=== PATIENT | male | born 1950 | race Caucasian/White ===

== ENCOUNTER 2020-06-11 13:18 | Inpatient (IN) ==
[2020-06-11] MEDS ORDERED: SODIUM CHLORIDE 0.9% 1000ML 1,000 ML IV SCH (14:15)
[2020-06-11 14:41] LABS: Basophils # (auto) 0.04 K/uL (0-0.2); Basophils % (auto) 0.4 %; Eosinophils # (auto) 0.14 K/uL (0-0.5); Eosinophils % (auto) 1.5 %; Hematocrit (blood only) 38.3 % (42-52); Hemoglobin 13.4 g/dL (14.0-18.0); Immature Granulocytes # (auto) 0.02 K/uL (0.00-0.02); Immature Granulocytes % (auto) 0.2 %; Lymphocytes % (auto) 14.7 %; Mean Corpuscular Hemoglobin 30.9 pg (25-34); Mean Corpuscular Volume 88.5 fL (80-100); Mean Platelet Volume 11.3 fL (7.4-10.4); Monocytes % (auto) 10.5 %; Neutrophils # (auto) 6.93 K/uL (1.4-6.5); Neutrophils % (auto) 72.7 %; Platelet Count 253 K/uL (130-400); RDW Standard Deviation 48.7 fL (36.4-46.3); Red Blood Count 4.33 M/uL (4.7-6.1); White Blood Count 9.53 K/uL (4.8-10.8)
[2020-06-11 14:45] LABS: Appearance Urine Clear (Clear); Color Urine Orange; Protein Urine Negative (Negative); Specific Gravity Urine 1.021 (1.000-1.030); Sulfosalicylic Acid Urine Negative (Negative)
[2020-06-11 14:47] LABS: Epithelial Cell Urine 0-5 /lpf (0-5)
[2020-06-11 14:48] LABS: Bacteria Urine 1+ (Negative); INR 1.9 (0.9-1.1); Prothrombin Time 19.7 Seconds (9.0-12.0); RBC Urine 0-4 /hpf (0-4); WBC Urine 0-5 /hpf (0-5)
[2020-06-11 14:54] LABS: Est GFR (African American) 94.9; Est GFR (Non-African American) 81.9; Potassium 4.3 mmol/L (3.5-5.1)
--- NOTE | 2020-06-11 14:58 | Gastrointestinal Consultation ---
Date of Consultation June 11, 2020 Assessment & Plan (1) Jaundice: 70 year old male who sought GI care at [facility]SH for generalized abd discomfort, constipation and weight loss who presents to the ED w/ jaundice, Tbili 7, ABD US w/ gallstones/sludge and CBD dilation at 13 mm. Agree w/ CTAP Analgesia PRN Antiemetics PRN NPO after midnight EUS/ERCP tomorrow Will need pre-endoscopy COVID Acute hep panel Will need full liver serology pending imaging Thank you for allowing us to participate in the care of this patient. Please call with any acute changes, questions or concerns. Please see addendum below with additional recommendation from my supervising physician. Supervising Physician Co-Signing Physician Notes I have personally seen and examined the patient with TRISHA Zaman. Her note reflects my exam and findings. I agree with her impression and plan. Presentation most c/w choledocholithiasis. CT will help r/o mass lesion. Antibiotic coverage for biliary source given out patient temp and he is a diabetic. Gabe Torres M.D. History of Present Illness Reason for Consultation: jaundice Requesting Physician: Priscilla Attending Physician: Priscilla History of Present Illness 70 year old male with history of T2DM, Barretts who presents to the ED w/ report of gallstones on imaging, biliary dilation from OSH and jaundice. Pt was seen and evaluated, chart reviewed. Suggests he was undergoing work up for abdominal discomfort and constipation at [facility]. Labs over the weekend noted elevated LFTs and ABD US this AM was concerning of CBD dilation at 13 mm and gallstones. He endorses generalized abdominal discomfort. Fullness. Slight decreased appetite and early satiety. Denies nausea/vomiting. He has lost weight. Change in bowel habits w/ formed stools and straining every 4/5 days. Has not seen any black/bloody stools. He has had intermittent fevers of 101 x 1- 2 weeks. No known COVID-19 exposure. CTAP: ordered ABD US: gallstones and sludge, slight GB wall thickening, CBD 13 mm EGD: OSH years ago, Barret[facility] Colonoscopy: OSH years ago, unremarkable No ETOH No tylenol No NSAIDs Allergies Allergy/AdvReac Type Severity Reaction Status Date / Time No Known Allergies Allergy Unverified 06/11/20 15:08 Home Medications Home Medications Medication Instructions Recorded Confirmed Type aspirin [Aspirin Low Dose] 81 mg PO DAILY 06/11/20 06/11/20 History calcium carbonate [Calcium 600] 0 mg PO DAILY 06/11/20 06/11/20 History cyanocobalamin (vitamin B-12) 0 mcg PO DAILY 06/11/20 06/11/20 History [Vitamin B-12] insulin glargine [Lantus Solostar 50 unit SUBCUT BID 06/11/20 06/11/20 History U-100 Insulin] losartan 50 mg PO QAM 06/11/20 06/11/20 History metformin 1,000 mg PO BID 06/11/20 06/11/20 History pantoprazole 40 mg PO QAM 06/11/20 06/11/20 History polyethylene glycol 3350 [Miralax] 17 g PO DAILY PRN 06/11/20 06/11/20 History simvastatin 40 mg PO HS 06/11/20 06/11/20 History Patient History Social History Smoking Status: Never smoker Preferred Language: [place] Feels Safe at Home: Yes Review of Systems Constitutional: + fever (at home) and + weight loss; no chills and no fatigue Respiratory: no cough and no dyspnea Cardiovascular: no chest pain and no dyspnea Gastrointestinal: + abdominal pain, + early satiety and + change in stools Physical Exam Constitutional: no acute distress Neck: trachea midline Respiratory: normal respiratory effort Cardiovascular: Rate/Rhythm: regular rate Gastrointestinal (Abdomen): Percussion/Palpation: abdomen soft; abdomen nontender, no guarding and abdomen not rigid Skin: + jaundice Results & Data ([facility]) Vital Signs (Past 12 Hours) Vital Signs Temp Pulse Resp BP Pulse Ox 06/11/20 13:19 37.0 C 95 H 18 201/84 H 99 Laboratory Results 06/11/20 06/11/20 06/11/20 Range/Units 14:25 14:25 14:25 WBC (4.8-10.8) K/uL RBC (4.7-6.1) M/uL Hgb (14.0-18.0) g/dL Hct (42-52) % MCV (80-100) fL MCH (25-34) pg MCHC (32-36) g/dL RDW Std Deviation (36.4-46.3) fL RDW Coeff of Christiano (11.5-14.5) % Plt Count (130-400) K/uL MPV (7.4-10.4) fL Immature Gran % (Auto) % Neut % (Auto) % Lymph % (Auto) % [place] % (Auto) % Eos % (Auto) % Baso % (Auto) % Neut # (Auto) (1.4-6.5) K/uL Lymph # (Auto) (1.2-3.4) K/uL [place] # (Auto) (0.11-0.59) K/uL Eos # (Auto) (0-0.5) K/uL Baso # (Auto) (0-0.2) K/uL Immature Gran # (Auto) (0.00-0.02) K/uL PT 19.7 H (9.0-12.0) Seconds INR 1.9 H (0.9-1.1) Sodium 134 L (136-145) mmol/L Potassium 4.3 (3.5-5.1) mmol/L Chloride 97 L (98-107) mmol/L Carbon Dioxide 29 (21-32) mmol/L Anion Gap 8.0 (3-11) BUN 15 (7-18) mg/dl Creatinine 0.95 (0.6-1.4) mg/dl Est Cr Clr Drug Dosing 72.0 ml/min Est GFR ( Amer) 94.9 Est GFR (Non-Af Amer) 81.9 BUN/Creatinine Ratio 16.0 (10-20) Glucose 273 H (70-99) mg/dl Calcium 10.0 (8.5-10.1) mg/dl Total Bilirubin Pending AST Pending ALT Pending Alkaline Phosphatase Pending Total Protein Pending Albumin 3.0 L (3.4-5.0) gm/dl Globulin Pending Albumin/Globulin Ratio Pending Lipase 66 L (73-393) U/L Urine Color [place] Urine Appearance Clear (Clear) Urine pH (4.5-7.5) Ur Specific [place] 1.021 (1.000-1.030) Urine Protein Negative (Negative) Urine Glucose (UA) (Negative) Urine Ketones (Negative) Urine Blood (Negative) Urine Nitrite (Negative) Urine Bilirubin (Negative) Urine Urobilinogen (Negative) Ur Leukocyte Esterase (Negative) Urine RBC 0-4 (0-4) /hpf Urine WBC 0-5 (0-5) /hpf Ur Epithelial Cells 0-5 (0-5) /lpf Urine Bacteria 1+ H (Negative) 06/11/20 Range/Units 14:25 WBC 9.53 (4.8-10.8) K/uL RBC 4.33 L (4.7-6.1) M/uL Hgb 13.4 L (14.0-18.0) g/dL Hct 38.3 L (42-52) % MCV 88.5 (80-100) fL MCH 30.9 (25-34) pg MCHC 35.0 (32-36) g/dL RDW Std Deviation 48.7 H (36.4-46.3) fL RDW Coeff of Christiano 15.0 H (11.5-14.5) % Plt Count 253 (130-400) K/uL MPV 11.3 H (7.4-10.4) fL Immature Gran % (Auto) 0.2 % Neut % (Auto) 72.7 % Lymph % (Auto) 14.7 % [place] % (Auto) 10.5 % Eos % (Auto) 1.5 % Baso % (Auto) 0.4 % Neut # (Auto) 6.93 H (1.4-6.5) K/uL Lymph # (Auto) 1.40 (1.2-3.4) K/uL [place] # (Auto) 1.00 H (0.11-0.59) K/uL Eos # (Auto) 0.14 (0-0.5) K/uL Baso # (Auto) 0.04 (0-0.2) K/uL Immature Gran # (Auto) 0.02 (0.00-0.02) K/uL PT (9.0-12.0) Seconds INR (0.9-1.1) Sodium (136-145) mmol/L Potassium (3.5-5.1) mmol/L Chloride (98-107) mmol/L Carbon Dioxide (21-32) mmol/L Anion Gap (3-11) BUN (7-18) mg/dl Creatinine (0.6-1.4) mg/dl Est Cr Clr Drug Dosing ml/min Est GFR ( Amer) Est GFR (Non-Af Amer) BUN/Creatinine Ratio (10-20) Glucose (70-99) mg/dl Calcium (8.5-10.1) mg/dl Total Bilirubin AST ALT Alkaline Phosphatase Total Protein Albumin (3.4-5.0) gm/dl Globulin Albumin/Globulin Ratio Lipase (73-393) U/L Urine Color Urine Appearance (Clear) Urine pH (4.5-7.5) Ur Specific [place] (1.000-1.030) Urine Protein (Negative) Urine Glucose (UA) (Negative) Urine Ketones (Negative) Urine Blood (Negative) Urine Nitrite (Negative) Urine Bilirubin (Negative) Urine Urobilinogen (Negative) Ur Leukocyte Esterase (Negative) Urine RBC (0-4) /hpf Urine WBC (0-5) /hpf Ur Epithelial Cells (0-5) /lpf Urine Bacteria (Negative)
--- NOTE | 2020-06-11 15:27 | XRay Report ---
XR chest 1V portable HISTORY: 70 years-old Male weight loss patient presents with weight loss. COMPARISON: None TECHNIQUE: Portable AP view of the chest FINDINGS: Cardiomediastinal and hilar silhouettes are within normal limits. No pneumothorax, pleural effusion, airspace consolidation or overt pulmonary edema. Degenerative changes of the shoulders and spine. IMPRESSION: No acute process. ACT 112: Negative or not required by law. The above report was generated using voice recognition software. It may contain grammatical, syntax o r spelling errors. Electronically signed by: Luis Cleveland M.D. 06/11/2020 3:25 PM
[2020-06-11 15:36] LABS: Albumin Globulin Ratio 0.7 (0.9-2); Bilirubin,Total 13.4 mg/dl (0.2-1); Globulin 4.6 gm/dl (2.5-4.0); Total Protein 7.6 gm/dl (6.4-8.2)
[2020-06-11] MEDS ORDERED: ACETAMINOPHEN 325 MG TAB PO PRN (17:14)
[2020-06-11] MEDS ORDERED: MoRPHine SULFATE 2 MG/ML CARP IV PRN (17:14)
[2020-06-11] MEDS ORDERED: IOVERSOL 100ml IV ONE (17:17)
[2020-06-11] MEDS ORDERED: ONDANSETRON INJ 2 MG/ML 2 ML VIAL IV PRN (17:23)
--- NOTE | 2020-06-11 17:43 | CT Scan Report ---
ABDOMEN AND PELVIS CT WITH IV AND ORAL CONTRAST CT DOSE: 424.87 mGy.cm HISTORY: weight loss, jaundice TECHNIQUE: Multiaxial CT images of the abdomen and pelvis were performed following the use of intrave nous and oral contrast. A dose lowering technique was utilized adhering to the principles of ALARA. COMPARISON STUDY: None. FINDINGS: The lung bases are essentially clear. No pneumoperitoneum. No pneumatosis. No suspicious ly tic or blastic osseous lesions. The liver, adrenal glands, and kidneys are unremarkable. There is a l eft circumaortic renal vein. No retroperitoneal or pelvic lymphadenopathy. The bladder is unremarkabl e. The prostate gland is mildly enlarged. A few colonic diverticula. No evidence for diverticulitis. Moderate well-formed stool seen throughout the colon. No bowel wall thickening or obstruction. Normal appendix. The gallbladder is distended and contains multiple gallstones. The common bile duct and ma in pancreatic duct are also dilated. There is moderate intrahepatic bile duct dilatation. No hepatic masses identified. There is an ill-defined 2.8 x 2.2 cm hypodense mass within the pancreatic head/nec k. This is best seen on image 156. This accounts for the bile duct and pancreatic duct dilatation. Th ere is atrophy of the pancreatic tail. This mass abuts but does not significantly encase or narrow th e adjacent portal and superior mesenteric veins. The superior mesenteric artery is also patent. IMPRESSION: 1. A 2.8 x 2.2 cm ill-defined hypodense mass within the pancreatic head/neck resulting in dilatation of the biliary and pancreatic ducts. Findings are consistent with a pancreatic adenocarcinoma until p roven otherwise. 2. This mass abuts but does not significantly narrow the adjacent portal/superior mesenteric veins. 3. Dilated gallbladder also likely secondary to an obstructing pancreatic head mass. There are multip le gallstones present. 4. Moderate well-formed stool within the colon. 5. No bowel wall thickening or obstruction. ACT 112: Negative or not required by law. Electronically signed by: Norman Li M.D. 06/11/2020 5:42 PM
[2020-06-11] MEDS ORDERED: ONDANSETRON INJ 2 MG/ML 2 ML VIAL IV STA (18:23)
[2020-06-11] MEDS ORDERED: HYDROmorphone INJ 0.5 MG/0.5 ML SYR IV STA (18:23)
--- NOTE | 2020-06-11 18:49 | Emergency Department Note ---
ED Visit Note Patient seen and evaluated in conjunction with Dr. Barlow in the ED. Please see her note for medical decision making. . Resident Activity Tracking Resident Involvement: Resident Care Provided Care Provided: Adult ED
--- NOTE | 2020-06-11 19:51 | Emergency Department Note ---
History of Present Illness General Chief complaint: Abdominal Pain Stated complaint: ABD DISTRESS, REF BY DR AFTER US Time Seen by Provider: 06/11/20 13:26 Source: patient and RN notes reviewed Mode of arrival: ambulatory Limitations: no limitations History of Present Illness Provider complaint: Abdominal discomfort, difficulty eating, weight loss and jaundice Maximum Pain Intensity: 3 This patient is a 70-year-old male who presents emergency department with complaints of epigastric abdominal discomfort, cramping, constipation, jaundice and a 12 pound weight loss over the course the last month. He states he has had some intermittent fevers/chills. He denies any vomiting or blood in the stools. Patient denies any significant alcohol intake, significant hepatitis risk factors or excessive Tylenol ingestion. He does have a history of diabetes. He denies any chest pain or shortness of breath. Home Medications Home Medications Medication Instructions Recorded Confirmed Type aspirin [Aspirin Low Dose] 81 mg PO DAILY 06/11/20 06/11/20 History calcium carbonate [Calcium 600] 0 mg PO DAILY 06/11/20 06/11/20 History cyanocobalamin (vitamin B-12) 0 mcg PO DAILY 06/11/20 06/11/20 History [Vitamin B-12] insulin glargine [Lantus Solostar 50 unit SUBCUT BID 06/11/20 06/11/20 History U-100 Insulin] losartan 50 mg PO QAM 06/11/20 06/11/20 History metformin 1,000 mg PO BID 06/11/20 06/11/20 History pantoprazole 40 mg PO QAM 06/11/20 06/11/20 History polyethylene glycol 3350 [Miralax] 17 g PO DAILY PRN 06/11/20 06/11/20 History simvastatin 40 mg PO HS 06/11/20 06/11/20 History Allergies Allergy/AdvReac Type Severity Reaction Status Date / Time No Known Allergies Allergy Unverified 06/11/20 15:08 Past Med/Surg History Medical History (Updated 06/11/20 @ 21:16 by Heather Barlow MD) Hyperlipidemia Hypertension Insulin dependent diabetes mellitus Social History (Updated 06/11/20 @ 21:06 by Heather Barlow MD) Smoking Status: Never smoker Preferred Language: Slovenian marital status: Feels Safe at Home: Yes Review of Systems See HPI for pertinent positives & negatives. and A total of 10 systems reviewed and were otherwise negative Physical Exam Vital Signs Vital Signs - 24 hr 06/11/20 13:19 06/11/20 18:54 06/11/20 19:06 Temperature 37.0 C Temperature Source Oral Pulse Rate 95 H Pulse Rate [Right Finger] 88 Pulse Rhythm [Right Finger] Regular Pulse Strength [Right Finger] Normal Respiratory Rate 18 16 Respiratory Effort / Characteristics Non-Labored Spontaneous Non-Labored Respiratory Depth Normal Normal Respiratory Pattern Regular Regular Blood Pressure 201/84 H Blood Pressure [Right Arm] 173/86 H Blood Pressure Mean 123 Blood Pressure Mean [Right Arm] 115 Blood Pressure Position [Right Arm] Sitting Pulse Oximetry 99 95 Oxygen Delivery Method Room Air Room Air Room Air Sepsis Recent Fever Within 48 Hours No Sepsis New/Unexplained Change in Mental Status No Sepsis Action Taken by Nursing No Action Required 06/11/20 20:00 Temperature Temperature Source Pulse Rate Pulse Rate [Right Finger] 93 H Pulse Rhythm [Right Finger] Pulse Strength [Right Finger] Respiratory Rate 20 Respiratory Effort / Characteristics Non-Labored Spontaneous Respiratory Depth Normal Respiratory Pattern Blood Pressure Blood Pressure [Right Arm] 176/87 H Blood Pressure Mean Blood Pressure Mean [Right Arm] 116 Blood Pressure Position [Right Arm] Pulse Oximetry 100 Oxygen Delivery Method Room Air Sepsis Recent Fever Within 48 Hours Sepsis New/Unexplained Change in Mental Status Sepsis Action Taken by Nursing Vital signs reviewed. Noted to be hypertensive. General: Jaundiced appearing 70-year-old male, no significant distress. HEENT: Positive scleral icterus, PERRLA, neck supple. Moist mucous membranes Cardiovascular: Regular rate and rhythm, no extra sounds. Pulmonary: Clear to auscultation bilaterally, normal work of breathing. Abdomen: Soft, minimal epigastric discomfort, no rebound, no guarding, nondistended, positive bowel sounds. Musculoskeletal: Atraumatic, no peripheral edema. Neurologic: Patient awake alert and oriented x 3 Skin: Warm, dry, jaundiced Course Administered Medications Sodium Chloride (Nss 1000ml) 1,000 mls @ 125 mls/hr IV .Q8H HAO Stop: 07/11/20 14:14 Last Infusion: 06/11/20 20:05 Dose: 0 mls/hr Documented by: [id number] Admin: 06/11/20 14:51 Dose: 125 mls/hr Documented by: [id number] Sodium Chloride (Nss 1000ml) 1,000 mls @ 125 mls/hr IV .Q8H HAO Stop: 07/11/20 18:29 Last Admin: 06/11/20 20:09 Dose: 125 mls/hr Documented by: [id number] Discontinued Medications Hydromorphone HCl (Hydromorphone Inj 0.5 Mg/0.5 Ml Syr) 0.5 mg IV NOW STA Stop: 06/11/20 18:24 Last Admin: 06/11/20 18:43 Dose: 0.5 mg Documented by: [id number] Ioversol (Ioversol 100ml) 94 ml IV ONCE ONE Stop: 06/11/20 17:18 Last Admin: 06/11/20 17:18 Dose: 94 ml Documented by: [id number] Ondansetron HCl (Ondansetron Inj 2 Mg/Ml 2 Ml Vial) 4 mg IV NOW STA Stop: 06/11/20 18:24 Last Admin: 06/11/20 18:43 Dose: 4 mg Documented by: [id number] Medical Decision Making Differential Diagnosis The differential diagnosis of this patient's presentation includes acute viral hepatitis, choledocholithiasis, acute cholecystitis, pancreatic mass, biliary mass, colonic obstruction, medication effect, alcohol related hepatitis. Medical Records Attestation: I reviewed the patient's medical records. (Outside hospital records) Home Medications Current Medication List: was personally reviewed by me Laboratory Data Attestation: I reviewed the patient's lab results. Result diagrams: 06/11/20 14:25 06/11/20 14:25 Lab Results 06/11/20 06/11/20 06/11/20 Range/Units 14:25 14:25 14:25 WBC 9.53 (4.8-10.8) K/uL RBC 4.33 L (4.7-6.1) M/uL Hgb 13.4 L (14.0-18.0) g/dL Hct 38.3 L (42-52) % MCV 88.5 (80-100) fL MCH 30.9 (25-34) pg MCHC 35.0 (32-36) g/dL RDW Std Deviation 48.7 H (36.4-46.3) fL RDW Coeff of Christiano 15.0 H (11.5-14.5) % Plt Count 253 (130-400) K/uL MPV 11.3 H (7.4-10.4) fL Immature Gran % (Auto) 0.2 % Neut % (Auto) 72.7 % Lymph % (Auto) 14.7 % George % (Auto) 10.5 % Eos % (Auto) 1.5 % Baso % (Auto) 0.4 % Neut # (Auto) 6.93 H (1.4-6.5) K/uL Lymph # (Auto) 1.40 (1.2-3.4) K/uL George # (Auto) 1.00 H (0.11-0.59) K/uL Eos # (Auto) 0.14 (0-0.5) K/uL Baso # (Auto) 0.04 (0-0.2) K/uL Immature Gran # (Auto) 0.02 (0.00-0.02) K/uL PT 19.7 H (9.0-12.0) Seconds INR 1.9 H (0.9-1.1) Sodium 134 L (136-145) mmol/L Potassium 4.3 (3.5-5.1) mmol/L Chloride 97 L (98-107) mmol/L Carbon Dioxide 29 (21-32) mmol/L Anion Gap 8.0 (3-11) BUN 15 (7-18) mg/dl Creatinine 0.95 (0.6-1.4) mg/dl Est Cr Clr Drug Dosing 72.0 ml/min Est GFR ( Amer) 94.9 Est GFR (Non-Af Amer) 81.9 BUN/Creatinine Ratio 16.0 (10-20) Glucose 273 H (70-99) mg/dl Calcium 10.0 (8.5-10.1) mg/dl Total Bilirubin 13.4 H (0.2-1) mg/dl AST 284 H (15-37) U/L ALT 517 H (12-78) U/L Alkaline Phosphatase 1037 H (45-117) U/L Total Protein 7.6 (6.4-8.2) gm/dl Albumin 3.0 L (3.4-5.0) gm/dl Globulin 4.6 H (2.5-4.0) gm/dl Albumin/Globulin Ratio 0.7 L (0.9-2) Lipase 66 L (73-393) U/L Urine Color Urine Appearance (Clear) Urine pH (4.5-7.5) Ur Specific [place] (1.000-1.030) Urine Protein (Negative) Urine Glucose (UA) (Negative) Urine Ketones (Negative) Urine Blood (Negative) Urine Nitrite (Negative) Urine Bilirubin (Negative) Urine Urobilinogen (Negative) Ur Leukocyte Esterase (Negative) Urine RBC (0-4) /hpf Urine WBC (0-5) /hpf Ur Epithelial Cells (0-5) /lpf Urine Bacteria (Negative) 06/11/20 Range/Units 14:25 WBC (4.8-10.8) K/uL RBC (4.7-6.1) M/uL Hgb (14.0-18.0) g/dL Hct (42-52) % MCV (80-100) fL MCH (25-34) pg MCHC (32-36) g/dL RDW Std Deviation (36.4-46.3) fL RDW Coeff of Chritsiano (11.5-14.5) % Plt Count (130-400) K/uL MPV (7.4-10.4) fL Immature Gran % (Auto) % Neut % (Auto) % Lymph % (Auto) % George % (Auto) % Eos % (Auto) % Baso % (Auto) % Neut # (Auto) (1.4-6.5) K/uL Lymph # (Auto) (1.2-3.4) K/uL [place] # (Auto) (0.11-0.59) K/uL Eos # (Auto) (0-0.5) K/uL Baso # (Auto) (0-0.2) K/uL Immature Gran # (Auto) (0.00-0.02) K/uL PT (9.0-12.0) Seconds INR (0.9-1.1) Sodium (136-145) mmol/L Potassium (3.5-5.1) mmol/L Chloride (98-107) mmol/L Carbon Dioxide (21-32) mmol/L Anion Gap (3-11) BUN (7-18) mg/dl Creatinine (0.6-1.4) mg/dl Est Cr Clr Drug Dosing ml/min Est GFR ( Amer) Est GFR (Non-Af Amer) BUN/Creatinine Ratio (10-20) Glucose (70-99) mg/dl Calcium (8.5-10.1) mg/dl Total Bilirubin (0.2-1) mg/dl AST (15-37) U/L ALT (12-78) U/L Alkaline Phosphatase (45-117) U/L Total Protein (6.4-8.2) gm/dl Albumin (3.4-5.0) gm/dl Globulin (2.5-4.0) gm/dl Albumin/Globulin Ratio (0.9-2) Lipase (73-393) U/L Urine Color [place] Urine Appearance Clear (Clear) Urine pH (4.5-7.5) Ur Specific [place] 1.021 (1.000-1.030) Urine Protein Negative (Negative) Urine Glucose (UA) (Negative) Urine Ketones (Negative) Urine Blood (Negative) Urine Nitrite (Negative) Urine Bilirubin (Negative) Urine Urobilinogen (Negative) Ur Leukocyte Esterase (Negative) Urine RBC 0-4 (0-4) /hpf Urine WBC 0-5 (0-5) /hpf Ur Epithelial Cells 0-5 (0-5) /lpf Urine Bacteria 1+ H (Negative) Imaging Data Radiologist's Impression: XR chest 1V portable HISTORY: 70 years-old Male weight loss patient presents with weight loss. COMPARISON: None TECHNIQUE: Portable AP view of the chest FINDINGS: Cardiomediastinal and hilar silhouettes are within normal limits. No pneumothorax, pleural effusion, airspace consolidation or overt pulmonary edema. Degenerative changes of the shoulders and spine. IMPRESSION: No acute process. ACT 112: Negative or not required by law. The above report was generated using voice recognition software. It may contain grammatical, syntax or spelling errors. Electronically signed by: Luis Cleveland M.D. 06/11/2020 3:25 PM Dictated: 06/11/201509 Transcribed: 06/11/201509 ABDOMEN AND PELVIS CT WITH IV AND ORAL CONTRAST CT DOSE: 424.87 mGy.cm HISTORY: weight loss, jaundice TECHNIQUE: Multiaxial CT images of the abdomen and pelvis were performed following the use of intravenous and oral contrast. A dose lowering technique was utilized adhering to the principles of ALARA. COMPARISON STUDY: None. FINDINGS: The lung bases are essentially clear. No pneumoperitoneum. No pneumatosis. No suspicious lytic or blastic osseous lesions. The liver, adrenal glands, and kidneys are unremarkable. There is a left circumaortic renal vein. N o retroperitoneal or pelvic lymphadenopathy. The bladder is unremarkable. The prostate gland is mildly enlarged. A few colonic diverticula. No evidence for diverticulitis. Moderate well-formed stool seen throughout the colon. No bowel wall thickening or obstruction. Normal appendix. The gallbladder is distended and contains multiple gallstones. The common bile duct and main pancreatic duct are also dilated. There is moderate intrahepatic bile duct dilatation. No hepatic masses identified. There is an ill-defined 2.8 x 2.2 cm hypodense mass within the pancreatic head/neck. This is best seen on image 156. This accounts for the bile duct and pancreatic duct dilatation. There is atrophy of the p ancreatic tail. This mass abuts but does not significantly encase or narrow the adjacent portal and superior mesenteric veins. The superior mesenteric artery is also patent. IMPRESSION: 1. A 2.8 x 2.2 cm ill-defined hypodense mass within the pancreatic head/neck resulting in dilatation of the biliary and pancreatic ducts. Findings are consistent with a pancreatic adenocarcinoma until proven otherwise. 2. This mass abuts but does not significantly narrow the adjacent portal/superior mesenteric veins. 3. Dilated gallbladder also likely secondary to an obstructing pancreatic head mass. There are multiple gallstones present. 4. Moderate well-formed stool within the colon. 5. No bowel wall thickening or obstruction. ACT 112: Negative or not required by law. Electronically signed by: Norman Li M.D. 06/11/2020 5:42 PM Dictated: 06/11/201735 Transcribed: 06/11/201735 Blood Pressure Blood Pressure Findings: Elevated blood pressure Blood Pressure Disposition: further management by hospitalist AGNIESZKA Barrett This patient was evaluated and appeared to be in no significant distress. IV access was obtained and laboratory work was drawn. The patient had records from the referring security infrastructure engineer at [facility]. Ultrasound of the right upper quadrant revealed cholelithiasis and a dilated common bile duct. There is no mention of the pancreas or liver otherwise. Patient was hydrated with normal saline solution. CT imaging of the abdomen pelvis was performed with IV and oral contrast. Patient was medicated with IV morphine as needed for pain. Patient's laboratory work reveals worsening liver function studies and total bilirubin from previous at the outside facility. Patient's total bilirubin today is 13.4 with elevated AST and ALT. Lipase is noted to be 66. CT imaging is concerning for a 2.8 x 2.2 cm mass at the pancreatic head. The patient was informed of the findings. He was medicated with IV Dilaudid as his pain was not well controlled. He was ordered a clear liquid tray and advised to stay n.p.o. after midnight. [facility] gastroenterology had previously evaluated the patient and knew of his referral to our department. Plan is for ERCP tomorrow. Patient is aware of the findings, although understandably dish eartened, agrees with the plan for further management. Impression & Plan Mass of pancreas, Jaundice, Insulin dependent diabetes mellitus Discharge Plan Visit Data Chief Complaint: Abdominal Pain Stated Complaint: ABD DISTRESS, REF BY AFTER US ED Provider: Heather Barlow ED Midlevel Provider: Ingrid Mann Discharge Problem: Mass of pancreas, Jaundice, Insulin dependent diabetes mellitus Patient Disposition: Admitted As Inpatient Discharge Instructions Interventions: ED Discharge Assessment Last Done: 06/11/20 20:53
[2020-06-11] MEDS: SODIUM CHLORIDE 0.9% 1000ML 1,000 ML IV SCH ×2 (20:09→21:51)
--- NOTE | 2020-06-11 21:04 | History & Physical Report ---
Date of Service June 11, 2020 Assessment & Plan (1) Mass of pancreas: Fady Kang is a 70 year old man with a past medical history of DMII and vocal cord polyp who is here for jaundice abdominal pain and weight loss over the past month who was found to have a new pancreatic head mass on CT New Abdominal Mass In this patient with Abdominal Pain jaundice weight loss and double duct sign with new mass on CT this is highly suspicious of pancreatic adenocarcinoma GI has evaluated patient and we will see if they can perform ERCP in AM MRCP ordered tonight Will make patient NPO in meantime LR 100 mls/hour Oncology consulted Tramadol for pain relief dilaudid for severe pain Liver Failure INR of 1.9 will treat with 2.5 mg Vitamin K in preparation for procedure tomorrow AST 284, ALT 517 Alk phos 1037 t bili 13.4 MELD score of 25 no significant ascites Fever at Home Patient with what appears to be UTI and biliary obstruction will cover both sources with Zosyn urine cultures pending Afebrile since being here but fevers and chills at home COVID test ordered for pre op New murmur Patient with loud ejection murmur has never been told he has heart murmur before, will get echo in am DMII Placed on sliding scale and basal insulin 15 units BID UTI difficult to assess with degree of bilirubin in urine But bacteria present, will treat with zosyn (broad spectrum due to potential for biliary source of infection as well) HLD Continuing home simvastatin F/E/N: NPO in preparation for ERCP tomorrow DVT PPx: SCD's for now and ambulation lovenox can be ordered post procedure Dispo: Admit for ERCP and possible stenting tomorrow morning DNR/DNI (2) Hypertension: (3) Insulin dependent diabetes mellitus: (4) Hyperlipidemia: (5) Jaundice: History of Present Illness Chief Complaint: Abdominal Pain Primary Care Provider: Jesus Posada Fady Kang is a 70 year old woman with a past medical history significant for type 2 diabetes who has been having abdominal discomfort for past month. Discomfort started out mild and was after eating. This then progressed to pain and for the last two and a half weeks he has become progressively more jaundiced. His abdominal discomfort led to a decreased PO intake and he has lost about 12.5 pounds. He does not has not had nausea or vomiting only pain discomfort and constipation. He has been seeing his primary care midlevel provider several times for these symptoms over the past month and finally was referred to gastroenterology this last week where he was ordered a gall bladder u/s secondary to cholestatic lab results. Based on the biliary dilation he was told to present to emergency department to rule out biliary stones or sludge. vital signs wnl here in ED labwork significant for elevated INR 1.9, hy ponatremia of 134, elevated glucose of 273, t bili of 13.4, AST 284, ALT 517, Alk Phos 1037, albumin of 3.0. CT abdomen showing ill defined 2.8 x 2.2 cm mass in the pancreatic head resulting in dilation of both the biliary and pancreatic ducts. 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 pipe smoker thrity years ago, never drinker never drug user. WIshes to be DNR/DNI Allergies Allergy/AdvReac Type Severity Reaction Status Date / Time No Known Allergies Allergy Unverified 06/11/20 15:08 Home Medications Home Medications Medication Instructions Recorded Confirmed Type aspirin [Aspirin Low Dose] 81 mg PO DAILY 06/11/20 06/11/20 History calcium carbonate [Calcium 600] 0 mg PO DAILY 06/11/20 06/11/20 History cyanocobalamin (vitamin B-12) 0 mcg PO DAILY 06/11/20 06/11/20 History [Vitamin B-12] insulin glargine [Lantus Solostar 50 unit SUBCUT BID 06/11/20 06/11/20 History U-100 Insulin] losartan 50 mg PO QAM 06/11/20 06/11/20 History metformin 1,000 mg PO BID 06/11/20 06/11/20 History pantoprazole 40 mg PO QAM 06/11/20 06/11/20 History polyethylene glycol 3350 [Miralax] 17 g PO DAILY PRN 06/11/20 06/11/20 History simvastatin 40 mg PO HS 06/11/20 06/11/20 History Past Med/Surg History Medical History (Updated 06/12/20 @ 14:04 by Leonardo Villagomez MD) Hyperlipidemia Hypertension Insulin dependent diabetes mellitus Social History (Updated 06/11/20 @ 21:06 by Heather Barlow MD) Smoking Status: Former smoker Hx Alcohol Use: No Hx Substance Use: No Preferred Language: Portuguese Communication Ability: Effective Fuel Verification Technician Required: No Beliefs That Will Affect Care: None marital status: Current Living Situation: Spouse Other Information That Helps Us Care for You: No Feels Safe at Home: Yes Safety Concerns: Feels Safe At This Time Review of Systems Review of Systems: All systems reviewed & are unremarkable except as noted in HPI & below Physical Exam Physical Exam: Constitutional: Uncomfortable appearing 70 year old man lying in bed grossly jaundiced Eyes: Scleral icterus clearly present, EOMMI bilaterally ENMT: NAD NEck: NAD, no jVD REspiratory: No increased work of breathing, lung sounds vesicular throughout Cardiovascular: Regular rate and regular rhythm, loud systolic murmur that he tells me he has no history of GI: Abdomen soft, mildly tender throughout Skin: Jaundiced, no rashes or wounds, no bruising Results & Data Results & Data ([facility]) Vital Signs (Past 12 Hours) Vital Signs Temp Pulse Pulse Resp BP BP Pulse Ox 06/11/20 20:00 93 H 20 176/87 H 100 06/11/20 18:54 88 16 173/86 H 95 06/11/20 13:19 37.0 C 95 H 18 201/84 H 99 Code Status & VTE Plan VTE Prophylaxis Plan VTE Prophylaxis will be ordered: Yes Supervising Physician Co-Signing Physician Notes Attending addendum: I have physically seen this patient, have supervised the medical residents activities, and agree with the H&P unless as otherwise noted. Assessment and Plan: Pancreatic head mass/double duct sign- Admit to medical surgical NPO for possible stenting Consult gastroenterology Consult oncology Trial of vitamin K 10 mg IV for coagulopathy Follow serial laboratories: CBC with differential, chemistry profile, PT/PTT/INR and lipase. Zosyn 4.5 g IV every 8 hours. UTI- Follow urine culture and sensitivity Zosyn as above Heart murmur- Echocardiogram ordered. Remaining orders and notations as noted Resident Activity Tracking Resident Involvement: Resident Care Provided Care Provided: Adult Hospital Medicine
[2020-06-11] MEDS ORDERED: PIPERACILL/TAZOBAC CONSULT ACTIVE PRN (21:05)
[2020-06-11] MEDS ORDERED: MAGNESIUM HYDROXIDE SUSP 30 ML UDC PO PRN (21:05)
[2020-06-11] MEDS ORDERED: INSULIN GLARGINE SOLOSTAR 100 UNITS/ML 3 ML PEN SC SCH (21:05)
[2020-06-11] MEDS ORDERED: CARBOHYDRATES FOR HYPOGLYCEMIA PO PRN (21:05)
[2020-06-11] MEDS ORDERED: DC ALL PREVIOUSLY ORDERED DIABETES MEDS ONE (21:05)
[2020-06-11] MEDS ORDERED: GLUCAGON FOR INJ 1 MG VIAL SQ PRN (21:05)
[2020-06-11] MEDS ORDERED: TRAMADOL HCL 50 MG TABLET PO PRN (21:05)
[2020-06-11] MEDS ORDERED: GLUCOSE 10 TABS/TUBE PO PRN (21:05)
[2020-06-11] MEDS ORDERED: INSULIN ASPART 100 UNITS/ML 3 ML PEN SC SCH (21:05)
[2020-06-11] MEDS ORDERED: PIPERACILLIN/TAZOBACTAM 3.375 GM in DEXTROSE 5% 100 ML IV ONE (21:30)
[2020-06-11] MEDS: SIMVASTATIN 40 MG TAB PO SCH (21:52)
[2020-06-11] MEDS ORDERED: Nursing to Pharmacy Communication SCH (22:45)
[2020-06-11] MEDS ORDERED: PHARMACY GLYCEMIC MGMT CONSULT PRN (22:52)
[2020-06-11] MEDS: HYDROmorphone INJ 0.5 MG/0.5 ML SYR IV PRN (23:42)
[2020-06-11] MEDS: INSULIN ASPART 100 UNITS/ML 3 ML PEN SC SCH (23:45)
[2020-06-12] MEDS: PIPERACILLIN/TAZOBACTAM 3.375 GM in DEXTROSE 5% 100 ML IV SCH ×3 (01:46→17:53)
[2020-06-12] MEDS: INSULIN ASPART 100 UNITS/ML 3 ML PEN SC SCH ×6 (04:14→23:54)
[2020-06-12] MEDS: GLUCOSE 40% GEL 15 GM TUBE PO PRN ×2 (04:55→05:17)
[2020-06-12] MEDS ORDERED: PHYTONADIONE 2.5 MG in SODIUM CHLORIDE 0.9% 50 ML IV ONE (05:02)
[2020-06-12] MEDS: SODIUM CHLORIDE 0.9% 1000ML 1,000 ML IV SCH (05:45)
[2020-06-12] MEDS: HYDROmorphone INJ 0.5 MG/0.5 ML SYR IV PRN ×2 (06:13→11:31)
[2020-06-12] MEDS: LACTATED RINGER'S 1,000 ML IV SCH ×3 (06:29→23:56)
[2020-06-12 06:51] LABS: Basophils # (auto) 0.03 K/uL (0-0.2); Basophils % (auto) 0.3 %; Eosinophils # (auto) 0.11 K/uL (0-0.5); Hematocrit (blood only) 34.5 % (42-52); Hemoglobin 11.7 g/dL (14.0-18.0); Immature Granulocytes # (auto) 0.02 K/uL (0.00-0.02); Immature Granulocytes % (auto) 0.2 %; Lymphocytes # (auto) 1.41 K/uL (1.2-3.4); Lymphocytes % (auto) 13.4 %; Mean Corpuscular Hemoglobin 29.8 pg (25-34); Mean Corpuscular Hgb Conc 33.9 g/dL (32-36); Mean Corpuscular Volume 87.8 fL (80-100); Mean Platelet Volume 10.9 fL (7.4-10.4); Monocytes # (auto) 1.42 K/uL (0.11-0.59); Monocytes % (auto) 13.5 %; Neutrophils # (auto) 7.54 K/uL (1.4-6.5); Neutrophils % (auto) 71.6 %; Platelet Count 248 K/uL (130-400); RDW Coefficient of Variation 14.8 % (11.5-14.5); RDW Standard Deviation 47.9 fL (36.4-46.3); Red Blood Count 3.93 M/uL (4.7-6.1); White Blood Count 10.53 K/uL (4.8-10.8)
[2020-06-12 07:00] LABS: Estimated Average Glucose 180 mg/dl; Hemoglobin A1C 7.9 % (4.5-5.6)
[2020-06-12 07:32] LABS: Albumin Globulin Ratio 0.6 (0.9-2); Albumin Level 2.5 gm/dl (3.4-5.0); Bilirubin,Total 12.8 mg/dl (0.2-1); Calcium 9.6 mg/dl (8.5-10.1); Creatinine Clr Calc Pharmacy 77.7 ml/min; Est GFR (African American) 102.3; Est GFR (Non-African American) 88.3; Globulin 3.9 gm/dl (2.5-4.0); Potassium 3.4 mmol/L (3.5-5.1); Total Protein 6.4 gm/dl (6.4-8.2)
[2020-06-12] MEDS: PANTOprazole 40 MG TAB PO SCH (07:47)
[2020-06-12] MEDS: POLYETHYLENE (MIRALAX) 17 GM PACK PO SCH (07:47)
[2020-06-12] MEDS: LOSARTAN POTASSIUM 50 MG TAB PO SCH (07:48)
[2020-06-12] MEDS ORDERED: POTASSIUM CHLORIDE / WTR 10 MEQ/100 ML PLCT IV ONE (08:30)
--- NOTE | 2020-06-12 08:33 | Pharmacy Report ---
Glycemic Control Consultation - Date of Service June 12, 2020 - Scope Scope: Glycemic Pharmacist consulted for glycemic control and to write orders per [facility] inpatient glycemic control protocol. - Objective Weight: 74.3 kg Accuchecks BSG (last 24hrs): 06/11/20 06/11/20 06/11/20 14:25 21:52 21:54 Glucose 273 H POC Glucose 324 H* 324 H* 06/11/20 06/12/20 06/12/20 23:41 03:49 03:57 Glucose POC Glucose 223 H 65 L* 71 06/12/20 06/12/20 06/12/20 04:49 04:51 05:09 Glucose POC Glucose 57 L* 58 L* 57 L* 06/12/20 06/12/20 06/12/20 05:11 05:33 06:29 Glucose 108 H POC Glucose 65 L* 75 06/12/20 08:08 Glucose POC Glucose 76 Laboratory Data (last 24hrs): 06/11/20 06/12/20 14:25 06:29 Potassium 4.3 3.4 L D Carbon Dioxide 29 27 Anion Gap 8.0 8.0 Creatinine 0.95 0.88 Est Cr Clr Drug Dosing 72.0 77.7 HbA1c: Hemoglobin A1c 7.9 % (4.5-5.6) H 06/11/20 14:25 - Recent Pertinent Medications Outpatient Anti-diabetic Regimen: * Lantus 50 units bid, metformin 1 gm bid, trulicity * A1c = 7.9 % 06/11/20 The patient is currently receiving: * Basal insulin: Lantus 15 units every 12 hours * Correctional Insulin: Novolog Correction per scale ACHS Goal Range: Low 110 mg/dL - High 140 mg/dL Correction Factor: 18 mg/dL/unit * Prandial insulin: Per carb ratio of 1 unit per 6 grams CHO consumed Risk Factors for Insulin Resistance: * Infection: uti * Diet: NPO - Assessment & Plan Assessment & Plan: ASSESSMENT: * 70 year old male with abdominal pain, jaundice, weight loss found to have new pancreatic mass. GI consulted and plan to perform ERCP this morning. Patient NPO. Patient type 2 diabetic managed on insulin and metformin at home. 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 Ordered 15 units of Lantus at HS yesterday night for BSG of 324 mg/dL. Patient met with DM educator today and patient reports lower BSGs overnight therefore has been taking less Lantus in evening (35-45 units instead). With current pancreatic issues/concerns currently, would need to reevalute use of trulicity on discharge * Overnight BSGs trending down quickly, treated per hypoglycemia protocol with 15 gm of CHO x 2. AM BSG 75 mg/dL Plan to hold further basal insulin until BSGs trending upward. Plan to have ERCP today as patient continues on NPO status. Discussed with provider possibly starting some IV fluids with dextrose if BSGs continuing to trend downward PLAN FOR INPATIENT GLYCEMIC CONTROL: * Holding outpatient oral diabetes medications * Basal insulin * Lantus - hold this AM / NPO status * Lantus HS per scale - plan to reduce dosing * Bolus insulin * NovoLog per scale ACHS or Q6hrs while NPO * Goal Range: Low 110 mg/dL - High 140 mg/dL * Correction Factor: 25 mg/dL/unit * Nutritional / Prandial insulin per carb ratio of 1 unit per 9 grams CHO c onsumed * Please note that the plan above was derived based on current level of insulin resistance and hospital stress. These recommendations are appropriate for inpatient admission only. Plan of care upon discharge will need to be reassessed to avoid potential outpatient hypo/hyperglycemia. Thank you.
--- NOTE | 2020-06-12 08:46 | Gastroenterology Progress Note ---
Date of Service June 12, 2020 Assessment & Plan (1) Jaundice: 70 year old male who sought GI care at [facility]SH for generalized abd discomfort, constipation and weight loss who presents to the ED w/ jaundice, Tbili 7, ABD US w/ gallstones/sludge and CBD dilation at [address] w/ panc head mass, NPO for examination this AM NPO for EUS/ERCP Analgesia PRN Antiemetics PRN Will need pre-endoscopy COVID Thank you for allowing us to participate in the care of this patient. Please call with any acute changes, questions or concerns. Please see addendum below with additional recommendation from my supervising physician. Admission and Anticipated Discharge Date Admission Date: June 11, 2020 Supervising Physician Co-Signing Physician Notes I have personally seen and examined the patient with TRISHA Zaman. Her note reflects my exam and findings. I agree with her impression and plan. CT scan with pancreatic mass. Discussed results with patient. Plan for EUS/ERCP today. Gabe oTrres M.D. Subjective Pt was seen and evaluated, chart reviewed. Ct w/ panc mass No nausea/vomiting Review of Systems Constitutional: no fever and no fatigue Respiratory: no cough and no dyspnea Cardiovascular: no chest pain Gastrointestinal: + abdominal pain Physical Exam Constitutional: no acute distress Neck: trachea midline Respiratory: normal respiratory effort Cardiovascular: Rate/Rhythm: regular rate Gastrointestinal (Abdomen): Percussion/Palpation: abdomen soft; abdomen nontender, no guarding and abdomen not rigid Skin: + jaundice Results & Data ([facility]) Vital Signs (Past 12 Hours) Vital Signs Temp Pulse Pulse Resp BP BP BP 06/12/20 06:53 37.2 C 69 18 141/66 H 06/12/20 06:24 37 C 67 18 157/73 H 06/12/20 06:09 37.0 C 66 16 151/80 H 06/12/20 05:46 36.9 C 68 16 141/63 H 06/11/20 23:47 37.6 C H 79 18 161/69 H 06/11/20 21:06 37.3 C 105 H 16 167/76 H 06/11/20 20:53 94 H 18 163/76 H Pulse Ox 06/12/20 06:53 90 06/12/20 06:24 91 06/12/20 06:09 93 06/12/20 05:46 97 06/11/20 23:47 96 06/11/20 21:06 95 06/11/20 20:53 95 Laboratory Results 06/12/20 06/12/20 06/12/20 Range/Units 08:08 06:29 06:29 WBC 10.53 (4.8-10.8) K/uL RBC 3.93 L (4.7-6.1) M/uL Hgb 11.7 L (14.0-18.0) g/dL Hct 34.5 L (42-52) % MCV 87.8 (80-100) fL MCH 29.8 (25-34) pg MCHC 33.9 (32-36) g/dL RDW Std Deviation 47.9 H (36.4-46.3) fL RDW Coeff of Christiano 14.8 H (11.5-14.5) % Plt Count 248 (130-400) K/uL MPV 10.9 H (7.4-10.4) fL Immature Gran % (Auto) 0.2 % Neut % (Auto) 71.6 % Lymph % (Auto) 13.4 % Mora % (Auto) 13.5 % Eos % (Auto) 1.0 % Baso % (Auto) 0.3 % Neut # (Auto) 7.54 H (1.4-6.5) K/uL Lymph # (Auto) 1.41 (1.2-3.4) K/uL [place] # (Auto) 1.42 H (0.11-0.59) K/uL Eos # (Auto) 0.11 (0-0.5) K/uL Baso # (Auto) 0.03 (0-0.2) K/uL Immature Gran # (Auto) 0.02 (0.00-0.02) K/uL PT (9.0-12.0) Seconds INR (0.9-1.1) Sodium (136-145) mmol/L Potassium (3.5-5.1) mmol/L Chloride (98-107) mmol/L Carbon Dioxide (21-32) mmol/L Anion Gap (3-11) BUN (7-18) mg/dl Creatinine (0.6-1.4) mg/dl Est Cr Clr Drug Dosing ml/min Est GFR ( Amer) Est GFR (Non-Af Amer) BUN/Creatinine Ratio (10-20) Glucose (70-99) mg/dl POC Glucose 76 (70-99) mg/dl Estimat Average Glucose mg/dl Hemoglobin A1c (4.5-5.6) % Calcium (8.5-10.1) mg/dl Total Bilirubin (0.2-1) mg/dl AST (15-37) U/L ALT (12-78) U/L Alkaline Phosphatase (45-117) U/L Total Protein (6.4-8.2) gm/dl Albumin (3.4-5.0) gm/dl Globulin (2.5-4.0) gm/dl Albumin/Globulin Ratio (0.9-2) Lipase (73-393) U/L CA 19-9 Antigen Pending Urine Color Urine Appearance (Clear) Urine pH (4.5-7.5) Ur Specific [place] (1.000-1.030) Urine Protein (Negative) Urine Glucose (UA) (Negative) Urine Ketones (Negative) Urine Blood (Negative) Urine Nitrite (Negative) Urine Bilirubin (Negative) Urine Urobilinogen (Negative) Ur Leukocyte Esterase (Negative) Urine RBC (0-4) /hpf Urine WBC (0-5) /hpf Ur Epithelial Cells (0-5) /lpf Urine Bacteria (Negative) COVID-19 Eval Order SARS-CoV-2, RNA, NAAT (NEGATIVE) 06/12/20 06/12/20 06/12/20 Range/Units 06:29 05:33 05:11 WBC (4.8-10.8) K/uL RBC (4.7-6.1) M/uL Hgb (14.0-18.0) g/dL Hct (42-52) % MCV (80-100) fL MCH (25-34) pg MCHC (32-36) g/dL RDW Std Deviation (36.4-46.3) fL RDW Coeff of Christiano (11.5-14.5) % Plt Count (130-400) K/uL MPV (7.4-10.4) fL Immature Gran % (Auto) % Neut % (Auto) % Lymph % (Auto) % Mora % (Auto) % Eos % (Auto) % Baso % (Auto) % Neut # (Auto) (1.4-6.5) K/uL Lymph # (Auto) (1.2-3.4) K/uL [place] # (Auto) (0.11-0.59) K/uL Eos # (Auto) (0-0.5) K/uL Baso # (Auto) (0-0.2) K/uL Immature Gran # (Auto) (0.00-0.02) K/uL PT (9.0-12.0) Seconds INR (0.9-1.1) Sodium 134 L (136-145) mmol/L Potassium 3.4 L D (3.5-5.1) mmol/L Chloride 99 (98-107) mmol/L Carbon Dioxide 27 (21-32) mmol/L Anion Gap 8.0 (3-11) BUN 12 (7-18) mg/dl Creatinine 0.88 (0.6-1.4) mg/dl Est Cr Clr Drug Dosing 77.7 ml/min Est GFR ( Amer) 102.3 Est GFR (Non-Af Amer) 88.3 BUN/Creatinine Ratio 14.0 (10-20) Glucose 108 H (70-99) mg/dl POC Glucose 75 65 L* (70-99) mg/dl Estimat Average Glucose mg/dl Hemoglobin A1c (4.5-5.6) % Calcium 9.6 (8.5-10.1) mg/dl Total Bilirubin 12.8 H (0.2-1) mg/dl AST 274 H (15-37) U/L ALT 447 H (12-78) U/L Alkaline Phosphatase 987 H (45-117) U/L Total Protein 6.4 (6.4-8.2) gm/dl Albumin 2.5 L (3.4-5.0) gm/dl Globulin 3.9 (2.5-4.0) gm/dl Albumin/Globulin Ratio 0.6 L (0.9-2) Lipase (73-393) U/L CA 19-9 Antigen Urine Color Urine Appearance (Clear) Urine pH (4.5-7.5) Ur Specific [place] (1.000-1.030) Urine Protein (Negative) Urine Glucose (UA) (Negative) Urine Ketones (Negative) Urine Blood (Negative) Urine Nitrite (Negative) Urine Bilirubin (Negative) Urine Urobilinogen (Negative) Ur Leukocyte Esterase (Negative) Urine RBC (0-4) /hpf Urine WBC (0-5) /hpf Ur Epithelial Cells (0-5) /lpf Urine Bacteria (Negative) COVID-19 Eval Order SARS-CoV-2, RNA, NAAT (NEGATIVE) 06/12/20 06/12/20 06/12/20 Range/Units 05:09 04:51 04:49 WBC (4.8-10.8) K/uL RBC (4.7-6.1) M/uL Hgb (14.0-18.0) g/dL Hct (42-52) % MCV (80-100) fL MCH (25-34) pg MCHC (32-36) g/dL RDW Std Deviation (36.4-46.3) fL RDW Coeff of Christiano (11.5-14.5) % Plt Count (130-400) K/uL MPV (7.4-10.4) fL Immature Gran % (Auto) % Neut % (Auto) % Lymph % (Auto) % Mor[place] % (Auto) % Eos % (Auto) % Baso % (Auto) % Neut # (Auto) (1.4-6.5) K/uL Lymph # (Auto) (1.2-3.4) K/uL [place] # (Auto) (0.11-0.59) K/uL Eos # (Auto) (0-0.5) K/uL Baso # (Auto) (0-0.2) K/uL Immature Gran # (Auto) (0.00-0.02) K/uL PT (9.0-12.0) Seconds INR (0.9-1.1) Sodium (136-145) mmol/L Potassium (3.5-5.1) mmol/L Chloride (98-107) mmol/L Carbon Dioxide (21-32) mmol/L Anion Gap (3-11) BUN (7-18) mg/dl Creatinine (0.6-1.4) mg/dl Est Cr Clr Drug Dosing ml/min Est GFR ( Amer) Est GFR (Non-Af Amer) BUN/Creatinine Ratio (10-20) Glucose (70-99) mg/dl POC Glucose 57 L* 58 L* 57 L* (70-99) mg/dl Estimat Average Glucose mg/dl Hemoglobin A1c (4.5-5.6) % Calcium (8.5-10.1) mg/dl Total Bilirubin (0.2-1) mg/dl AST (15-37) U/L ALT (12-78) U/L Alkaline Phosphatase (45-117) U/L Total Protein (6.4-8.2) gm/dl Albumin (3.4-5.0) gm/dl Globulin (2.5-4.0) gm/dl Albumin/Globulin Ratio (0.9-2) Lipase (73-393) U/L CA 19-9 Antigen Urine Color Urine Appearance (Clear) Urine pH (4.5-7.5) Ur Specific [place] (1.000-1.030) Urine Protein (Negative) Urine Glucose (UA) (Negative) Urine Ketones (Negative) Urine Blood (Negative) Urine Nitrite (Negative) Urine Bilirubin (Negative) Urine Urobilinogen (Negative) Ur Leukocyte Esterase (Negative) Urine RBC (0-4) /hpf Urine WBC (0-5) /hpf Ur Epithelial Cells (0-5) /lpf Urine Bacteria (Negative) COVID-19 Eval Order SARS-CoV-2, RNA, NAAT (NEGATIVE) 06/12/20 06/12/20 06/12/20 Range/Units 03:57 03:49 02:45 WBC (4.8-10.8) K/uL RBC (4.7-6.1) M/uL Hgb (14.0-18.0) g/dL Hct (42-52) % MCV (80-100) fL MCH (25-34) pg MCHC (32-36) g/dL RDW Std Deviation (36.4-46.3) fL RDW Coeff of Christiano (11.5-14.5) % Plt Count (130-400) K/uL MPV (7.4-10.4) fL Immature Gran % (Auto) % Neut % (Auto) % Lymph % (Auto) % Mora % (Auto) % Eos % (Auto) % Baso % (Auto) % Neut # (Auto) (1.4-6.5) K/uL Lymph # (Auto) (1.2-3.4) K/uL [place] # (Auto) (0.11-0.59) K/uL Eos # (Auto) (0-0.5) K/uL Baso # (Auto) (0-0.2) K/uL Immature Gran # (Auto) (0.00-0.02) K/uL PT (9.0-12.0) Seconds INR (0.9-1.1) Sodium (136-145) mmol/L Potassium (3.5-5.1) mmol/L Chloride (98-107) mmol/L Carbon Dioxide (21-32) mmol/L Anion Gap (3-11) BUN (7-18) mg/dl Creatinine (0.6-1.4) mg/dl Est Cr Clr Drug Dosing ml/min Est GFR ( Amer) Est GFR (Non-Af Amer) BUN/Creatinine Ratio (10-20) Glucose (70-99) mg/dl POC Glucose 71 65 L* (70-99) mg/dl Estimat Average Glucose mg/dl Hemoglobin A1c (4.5-5.6) % Calcium (8.5-10.1) mg/dl Total Bilirubin (0.2-1) mg/dl AST (15-37) U/L ALT (12-78) U/L Alkaline Phosphatase (45-117) U/L Total Protein (6.4-8.2) gm/dl Albumin (3.4-5.0) gm/dl Globulin (2.5-4.0) gm/dl Albumin/Globulin Ratio (0.9-2) Lipase (73-393) U/L CA 19-9 Antigen Urine Color Urine Appearance (Clear) Urine pH (4.5-7.5) Ur Specific [place] (1.000-1.030) Urine Protein (Negative) Urine Glucose (UA) (Negative) Urine Ketones (Negative) Urine Blood (Negative) Urine Nitrite (Negative) Urine Bilirubin (Negative) Urine Urobilinogen (Negative) Ur Leukocyte Esterase (Negative) Urine RBC (0-4) /hpf Urine WBC (0-5) /hpf Ur Epithelial Cells (0-5) /lpf Urine Bacteria (Negative) COVID-19 Eval Order SARS-CoV-2, RNA, NAAT NEGATIVE (NEGATIVE) 06/12/20 06/11/20 06/11/20 Range/Units 02:45 23:41 21:54 WBC (4.8-10.8) K/uL RBC (4.7-6.1) M/uL Hgb (14.0-18.0) g/dL Hct (42-52) % MCV (80-100) fL MCH (25-34) pg MCHC (32-36) g/dL RDW Std Deviation (36.4-46.3) fL RDW Coeff of Christiano (11.5-14.5) % Plt Count (130-400) K/uL MPV (7.4-10.4) fL Immature Gran % (Auto) % Neut % (Auto) % Lymph % (Auto) % [place] % (Auto) % Eos % (Auto) % Baso % (Auto) % Neut # (Auto) (1.4-6.5) K/uL Lymph # (Auto) (1.2-3.4) K/uL [place] # (Auto) (0.11-0.59) K/uL Eos # (Auto) (0-0.5) K/uL Baso # (Auto) (0-0.2) K/uL Immature Gran # (Auto) (0.00-0.02) K/uL PT (9.0-12.0) Seconds INR (0.9-1.1) Sodium (136-145) mmol/L Potassium (3.5-5.1) mmol/L Chloride (98-107) mmol/L Carbon Dioxide (21-32) mmol/L Anion Gap (3-11) BUN (7-18) mg/dl Creatinine (0.6-1.4) mg/dl Est Cr Clr Drug Dosing ml/min Est GFR ( Amer) Est GFR (Non-Af Amer) BUN/Creatinine Ratio (10-20) Glucose (70-99) mg/dl POC Glucose 223 H 324 H* (70-99) mg/dl Estimat Average Glucose mg/dl Hemoglobin A1c (4.5-5.6) % Calcium (8.5-10.1) mg/dl Total Bilirubin (0.2-1) mg/dl AST (15-37) U/L ALT (12-78) U/L Alkaline Phosphatase (45-117) U/L Total Protein (6.4-8.2) gm/dl Albumin (3.4-5.0) gm/dl Globulin (2.5-4.0) gm/dl Albumin/Globulin Ratio (0.9-2) Lipase (73-393) U/L CA 19-9 Antigen Urine Color Urine Appearance (Clear) Urine pH (4.5-7.5) Ur Specific [place] (1.000-1.030) Urine Protein (Negative) Urine Glucose (UA) (Negative) Urine Ketones (Negative) Urine Blood (Negative) Urine Nitrite (Negative) Urine Bilirubin (Negative) Urine Urobilinogen (Negative) Ur Leukocyte Esterase (Negative) Urine RBC (0-4) /hpf Urine WBC (0-5) /hpf Ur Epithelial Cells (0-5) /lpf Urine Bacteria (Negative) COVID-19 Eval Order Covid19 IDNow [facility] SARS-CoV-2, RNA, NAAT (NEGATIVE) 06/11/20 06/11/20 06/11/20 Range/Units 21:52 14:25 14:25 WBC (4.8-10.8) K/uL RBC (4.7-6.1) M/uL Hgb (14.0-18.0) g/dL Hct (42-52) % MCV (80-100) fL MCH (25-34) pg MCHC (32-36) g/dL RDW Std Deviation (36.4-46.3) fL RDW Coeff of Christiano (11.5-14.5) % Plt Count (130-400) K/uL MPV (7.4-10.4) fL Immature Gran % (Auto) % Neut % (Auto) % Lymph % (Auto) % [place] % (Auto) % Eos % (Auto) % Baso % (Auto) % Neut # (Auto) (1.4-6.5) K/uL Lymph # (Auto) (1.2-3.4) K/uL [place] # (Auto) (0.11-0.59) K/uL Eos # (Auto) (0-0.5) K/uL Baso # (Auto) (0-0.2) K/uL Immature Gran # (Auto) (0.00-0.02) K/uL PT (9.0-12.0) Seconds INR (0.9-1.1) Sodium (136-145) mmol/L Potassium (3.5-5.1) mmol/L Chloride (98-107) mmol/L Carbon Dioxide (21-32) mmol/L Anion Gap (3-11) BUN (7-18) mg/dl Creatinine (0.6-1.4) mg/dl Est Cr Clr Drug Dosing ml/min Est GFR ( Amer) Est GFR (Non-Af Amer) BUN/Creatinine Ratio (10-20) Glucose (70-99) mg/dl POC Glucose 324 H* (70-99) mg/dl Estimat Average Glucose 180 mg/dl Hemoglobin A1c 7.9 H (4.5-5.6) % Calcium (8.5-10.1) mg/dl Total Bilirubin (0.2-1) mg/dl AST (15-37) U/L ALT (12-78) U/L Alkaline Phosphatase (45-117) U/L Total Protein (6.4-8.2) gm/dl Albumin (3.4-5.0) gm/dl Globulin (2.5-4.0) gm/dl Albumin/Globulin Ratio (0.9-2) Lipase (73-393) U/L CA 19-9 Antigen Urine Color [place] Urine Appearance Clear (Clear) Urine pH (4.5-7.5) Ur Specific [place] 1.021 (1.000-1.030) Urine Protein Negative (Negative) Urine Glucose (UA) (Negative) Urine Ketones (Negative) Urine Blood (Negative) Urine Nitrite (Negative) Urine Bilirubin (Negative) Urine Urobilinogen (Negative) Ur Leukocyte Esterase (Negative) Urine RBC 0-4 (0-4) /hpf Urine WBC 0-5 (0-5) /hpf Ur Epithelial Cells 0-5 (0-5) /lpf Urine Bacteria 1+ H (Negative) COVID-19 Eval Order SARS-CoV-2, RNA, NAAT (NEGATIVE) 06/11/20 06/11/20 06/11/20 Range/Units 14:25 14:25 14:25 WBC 9.53 (4.8-10.8) K/uL RBC 4.33 L (4.7-6.1) M/uL Hgb 13.4 L (14.0-18.0) g/dL Hct 38.3 L (42-52) % MCV 88.5 (80-100) fL MCH 30.9 (25-34) pg MCHC 35.0 (32-36) g/dL RDW Std Deviation 48.7 H (36.4-46.3) fL RDW Coeff of Christiano 15.0 H (11.5-14.5) % Plt Count 253 (130-400) K/uL MPV 11.3 H (7.4-10.4) fL Immature Gran % (Auto) 0.2 % Neut % (Auto) 72.7 % Lymph % (Auto) 14.7 % Mora % (Auto) 10.5 % Eos % (Auto) 1.5 % Baso % (Auto) 0.4 % Neut # (Auto) 6.93 H (1.4-6.5) K/uL Lymph # (Auto) 1.40 (1.2-3.4) K/uL [place] # (Auto) 1.00 H (0.11-0.59) K/uL Eos # (Auto) 0.14 (0-0.5) K/uL Baso # (Auto) 0.04 (0-0.2) K/uL Immature Gran # (Auto) 0.02 (0.00-0.02) K/uL PT 19.7 H (9.0-12.0) Seconds INR 1.9 H (0.9-1.1) Sodium 134 L (136-145) mmol/L Potassium 4.3 (3.5-5.1) mmol/L Chloride 97 L (98-107) mmol/L Carbon Dioxide 29 (21-32) mmol/L Anion Gap 8.0 (3-11) BUN 15 (7-18) mg/dl Creatinine 0.95 (0.6-1.4) mg/dl Est Cr Clr Drug Dosing 72.0 ml/min Est GFR ( Amer) 94.9 Est GFR (Non-Af Amer) 81.9 BUN/Creatinine Ratio 16.0 (10-20) Glucose 273 H (70-99) mg/dl POC Glucose (70-99) mg/dl Estimat Average Glucose mg/dl Hemoglobin A1c (4.5-5.6) % Calcium 10.0 (8.5-10.1) mg/dl Total Bilirubin 13.4 H (0.2-1) mg/dl AST 284 H (15-37) U/L ALT 517 H (12-78) U/L Alkaline Phosphatase 1037 H (45-117) U/L Total Protein 7.6 (6.4-8.2) gm/dl Albumin 3.0 L (3.4-5.0) gm/dl Globulin 4.6 H (2.5-4.0) gm/dl Albumin/Globulin Ratio 0.7 L (0.9-2) Lipase 66 L (73-393) U/L CA 19-9 Antigen Urine Color Urine Appearance (Clear) Urine pH (4.5-7.5) Ur Specific [place] (1.000-1.030) Urine Protein (Negative) Urine Glucose (UA) (Negative) Urine Ketones (Negative) Urine Blood (Negative) Urine Nitrite (Negative) Urine Bilirubin (Negative) Urine Urobilinogen (Negative) Ur Leukocyte Esterase (Negative) Urine RBC (0-4) /hpf Urine WBC (0-5) /hpf Ur Epithelial Cells (0-5) /lpf Urine Bacteria (Negative) COVID-19 Eval Order SARS-CoV-2, RNA, NAAT (NEGATIVE)
--- NOTE | 2020-06-12 08:48 | Consultation Report ---
DATE OF CONSULTATION: 06/12/2020 MEDICAL ONCOLOGY CONSULTATION REASON FOR CONSULTATION: Pancreatic head mass. HISTORY OF PRESENT ILLNESS: Mr. Fady Kang is a very pleasant 70-year-old gentleman who presents to [facility] with subacute onset jaundice, abdominal pain, and pancreatic mass. This gentleman states that he started turning jaundice he estimates a little over a month ago. The abdominal pain portion of his symptoms really came on within the last couple of weeks. He estimates a 13-pound weight loss. His appetite has also diminished over time. He describes his pain as a dull ache with radiation towards his back, which is pathognomonic for pancreatic lesion. This gentleman suffers from type 2 mellitus, but otherwise relatively healthy. Not surprisingly laboratory work done in the Emergency Room reveals an elevated glucose, total and direct bilirubin, as well as a significantly elevated alkaline phosphatase and liver transaminases. CT of the abdomen and pelvis was also performed on admission revealing a 2.8 x 2.2 cm ill-defined hypodense mass within the pancreatic head and neck resulting in dilatation of the biliary and pancreatic ducts. This mass abuts but does not significantly narrow the adjacent portal/superior mesenteric veins. Unfortunately, a CT scan of the chest was not done and we will have the hospitalist add the study to ensure he does not have evidence of pulmonary metastatic disease. I have been asked to render an opinion regarding diagnostic approach and potential therapeutics. PAST MEDICAL HISTORY: Again significant for type 2 diabetes mellitus, hyperlipidemia, and hypertension. CURRENT MEDICATIONS: Include simvastatin 40 mg p.o. daily, MiraLax 17 grams p.o. daily, Protonix 40 mg p.o. daily, metformin 1000 mg p.o. b.i.d., losartan 50 mg p.o. daily, insulin glargine 50 units subcutaneous b.i.d., cyanocobalamin 1000 mcg p.o. daily, aspirin 81 mg p.o. daily. ALLERGIES: No known drug allergies. SOCIAL HISTORY: He is and lives with his . 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 Negative for alcohol or illicit drugs. FAMILY HISTORY: Noncontributory. REVIEW OF SYSTEMS: CONSTITUTIONAL: As per HPI, most notably for jaundice, anorexia, and weight loss as well as epigastric abdominal pain with radiation to the back. SKIN: Positive again for jaundice. No other rashes or lesions. No history of dermatoses. HEENT: He denies headaches, lightheadedness, or dizziness. No visual or hearing deficits. No sinus symptoms, sore throat, or dysphagia. LYMPHATICS: No history of lymphoproliferative disease. CARDIAC: No history of coronary artery disease, no angina or palpitations. PULMONARY: Negative for COPD. He is not acutely short of breath, dyspneic, or orthopneic. No cough or hemoptysis. GASTROINTESTINAL: Again positive for epigastric pain. No current nausea or vomiting. No diarrhea or constipation, hematochezia, or melena stools. GENITOURINARY: No hematuria, dysuria, urinary incontinence. PSYCHIATRIC: Negative for anxiety, depression or psychoses. ENDOCRINE: Positive for type 2 diabetes mellitus, negative for thyroid disease. MUSCULOSKELETAL: No focal muscle weakness. No arthralgias. NEUROLOGIC: Negative for seizure, stroke, or migraine headache. HEMATOLOGIC: Positive for normocytic normochromic anemia. PHYSICAL EXAMINATION: GENERAL: Very pleasant, well-nourished, 70-year-old gentleman, in no acute distress. VITAL SIGNS: Temperature 37.2, pulse 69, respiratory rate 18, blood pressure 141/66. SKIN: Warm, dry, noncyanotic, and diffusely jaundiced. Turgor is fair. HEENT: Atraumatic, normocephalic. Positive for scleral icterus. No conjunctival discharge. PERRLA. EOMI. Nares patent without rhinorrhea or discharge. Throat clear. Tongue midline. No buccal lesions or ulcerations. NECK: Supple without JVD or thyromegaly. LYMPHATICS: No cervical or supraclavicular palpable nodes. HEART: Regular rate and rhythm. No clicks, rubs, murmurs or gallops. LUNGS: Clear to auscultation bilaterally. ABDOMEN: Soft, nontender, nondistended, without palpable hepatosplenomegaly. EXTREMITIES: No calf tenderness or swelling. No clubbing, cyanosis or edema. NEUROLOGIC: He is awake, alert and oriented x3. Cranial nerves II-XII are intact. LABORATORY DATA: WBC count 10,530, hemoglobin 11.7, platelet count 248,000. PT 19.7 seconds, INR 1.9. Sodium 134, potassium 3.4, chloride 99, carbon dioxide 27, creatinine 0.88, BUN 12, AST 274, ALT 447, alkaline phosphatase 987, albumin 2.5. IMPRESSION: 1. Pancreatic head lesion suspicious for adenocarcinoma. 2. Jaundice. 3. Hypoalbuminemia. 4. Elevated liver transaminases. 5. Hyperbilirubinemia. 6. Coagulopathy, probable vitamin K deficiency. PLAN: I was very pleased to meet with Fady and his at bedside today. This gentleman has been struggling with subacute onset jaundice, anorexia and weight loss with associated epigastric abdominal pain for about a month now. He presents to [facility] and CT scan of the abdomen and pelvis confirmed a sizable pancreatic head mass. CT scan of the chest has not been done and asked them to do so before moving further with diagnostics and therapeutics. I suspect the mass will mill turner to be an adenocarcinoma. If CT of the chest reveals no evidence of pulmonary disease, I think the most expedient and efficient way to make a diagnosis and perhaps surgical resection, to transfer Mr. Kang to a tertiary center. He is in favor of transferring to [place]. I would, however, give him one dose of vitamin K, perhaps 5 mg IV would suffice to reverse coagulopathy. Advised and Mrs. Kang of my suspicions and the best chance of long-term survival would be surgical resection. He will most certainly require chemotherapy at some point, perhaps neoadjuvant chemotherapy if not determined to be surgically resectable. Mr. Kang is well aware pancreatic cancer is certainly not a good diagnosis and the propensity of relapse or developing metastatic disease is significant. Again, Mr. Kang's case was discussed directly with Dr. Calvo and ultimately will plan to see Mr. Kang as an outpatient when appropriate. Thank you very much for allowing me to participate in his care. If you have any questions or concerns, feel free to contact me at any time.
--- NOTE | 2020-06-12 11:14 | XCELERA ---
[id number]
--- NOTE | 2020-06-12 11:16 | Hospitalist Progress Note ---
Date of Service June 12, 2020 Assessment & Plan (1) Mass of pancreas: Mr. Kang is a 70-year-old man with a past medical history of DMII and vocal cord polyp who is here for jaundice abdominal pain and weight loss over the past month who was found to have a new pancreatic head mass on CT. New Abdominal Mass In this patient with Abdominal Pain jaundice weight loss and double duct sign with new mass on CT this is highly suspicious of pancreatic adenocarcinoma - GI has evaluated patient and we will see if they can perform ERCP in AM MRCP ordered tonight - LR 100 mls/hour - Oncology consulted Dr. Infante onboard appreciate recommendations - Tramadol for pain relief Dilaudid for severe pain - CT chest did not show anything consistent with metastasis Liver Failure INR of 1.9 will treat with 2.5 mg Vitamin K in preparation for procedure tomorrow AST 284, ALT 517 Alk phos 1037 t bili 13.4 MELD score of 25 no significant ascites Fever at Home - Patient with what appears to be UTI and biliary obstruction will cover both sources with Zosyn urine cultures pending - Afebrile since being here but fevers and chills at home - COVID negative DMII Placed on sliding scale and basal insulin 15 units BID - became hypoglycemic today, given glucose and will hold insulin for now given NPO UTI difficult to assess with degree of bilirubin in urine But bacteria present, will treat with zosyn (broad spectrum due to potential for biliary source of infection as well) HLD Continuing home simvastatin F/E/N: NPO in preparation for ERCP DVT PPx: SCD's for now and ambulation lovenox can be ordered post procedure Dispo: Admit for ERCP and possible stenting DNR/DNI Admission and Anticipated Discharge Date Admission Date: June 11, 2020 Supervising Physician Co-Signing Physician Notes I personally examined the patient and verified all connell points of history and exam, discussed case, and agree with decision making with Dr Mendez. seen before ERCP, discussed ongoing care and anticipated decisions w pt at length - nursing had on video call at same time so that she could listen. answered all questions to the best of my ability. later d/w dr bhat after ERCP - was unable to pass stent vitals noted nad heent nc at mmm breathing unlabored no accessory muscles good effort skin no rashes no pallor but does have marked icterus obstructing pancreatic mass - will need transfer to tertiary since unable to pass stent. certainly highly suspicious for malignancy, likely is cause of moderate protein/calorie malnutrition as well. otherwise as above Subjective Mr. Kang was doing okay this morning. His was in the room. He had taken Dilaudid at 6AM and had relief of his abdominal pain. We discussed that he would like to address the obstruction, but would like to think about any surgical procedure and was not ready to make a decision on this yet. We will continue to address this with him during his hospital stay. Review of Systems Review of Systems: Constitutional: denies fevers, admits chills Cardiac: denies chest pain, palpitations, presyncope, syncope Pulm: denies cough, shortness of breath : denies urinary pain, frequency, urgency Physical Exam Constitutional: WD/WN, vitals as above Eyes: PERRL, conjunctivae normal, anicteric sclerae ENMT: external ear and nose normal, oropharynx normal Respiratory: normal respiratory effort, lungs clear to auscultation Cardiovascular: RRR, no murmur, no edema Gastrointestinal (Abdomen): - soft, nTTP Skin: + jaundice Results & Data Results & Data ([facility]) Vital Signs (Past 12 Hours) Vital Signs Temp Pulse Resp BP Pulse Ox 06/12/20 06:53 37.2 C 69 18 141/66 H 90 06/12/20 06:24 37 C 67 18 157/73 H 91 06/12/20 06:09 37.0 C 66 16 151/80 H 93 06/12/20 05:46 36.9 C 68 16 141/63 H 97 06/11/20 23:47 37.6 C H 79 18 161/69 H 96 CBC Results Results Complete Blood Count Results: RBC 3.93 M/uL (4.7-6.1) L 06/12/20 WBC 10.53 K/uL (4.8-10.8) 06/12/20 Hgb 11.7 g/dL (14.0-18.0) L 06/12/20 Hct 34.5 % (42-52) L 06/12/20 Plt Count 248 K/uL (130-400) 06/12/20 Chemistry (BMP) Results BMP Results: Sodium 134 mmol/L (136-145) L 06/12/20 Potassium 3.4 mmol/L (3.5-5.1) L 06/12/20 Chloride 99 mmol/L (98-107) 06/12/20 BUN 12 mg/dl (7-18) 06/12/20 Creatinine 0.88 mg/dl (0.6-1.4) 06/12/20 Glucose 108 mg/dl (70-99) H 06/12/20 Resident Activity Tracking Resident Involvement: Resident Care Provided Care Provided: Adult [facility]
--- NOTE | 2020-06-12 11:27 | CT Scan Report ---
CT chest wo con CLINICAL HISTORY: Pancreatic carcinoma. Staging procedure. COMPARISON STUDY: CT scan the abdomen and pelvis dated 06/11/2020 CT DOSE: 359.46 mGy.cm TECHNIQUE: CT of the thorax was performed from the thoracic inlet to the lung bases. Images are revi ewed in the axial, sagittal, and coronal planes. IV contrast was not administered for this examinatio n. A dose lowering technique was utilized adhering to the principles of ALARA. FINDINGS: Thyroid: Imaged portions of the thyroid gland are normal in appearance. Thoracic aorta: The thoracic aorta is normal in course and caliber, noting standard 3 vessel arch marlon miguel. Heart: The heart is normal in size. There are mild coronary artery calcifications. There is no perica rdial effusion. Lungs and pleural spaces: There are no pleural effusions. There are no areas of parenchymal consolida tion to indicate a pneumonia. There are dependent bibasilar opacities, statistically atelectatic. No suspicious pulmonary masses are visualized. Mediastinum: There is no evidence of pathologic mediastinal lymphadenopathy. Amirah: There is no evidence of pathologic hilar adenopathy given the limitations of a noncontrast stud y. Axilla: There is no evidence of pathologic axillary lymphadenopathy. Upper abdomen: There is mild intrahepatic biliary ductal dilatation. Skeletal structures: There are no lytic or blastic osseous lesions. IMPRESSION: 1. No acute intrathoracic findings. No evidence of intrathoracic metastatic disease. 2. Basilar parenchymal opacities likely atelectatic 3. Intrahepatic biliary ductal dilatation ACT 112: Negative or not required by law. Electronically signed by: Prieto Mello M.D. 06/12/2020 11:26 AM
[2020-06-12] MEDS: DEXTROSE 50% 50 ML SYRINGE IV PRN ×2 (12:15→16:29)
[2020-06-12] MEDS ORDERED: INDOMETHACIN 50 MG SUPP PR ONE ×2 (13:28→14:40)
[2020-06-12] MEDS ORDERED: LIDOCAINE HCL 2% 2 ML VIAL/AMP(20MG/ML) INFIL ONE (13:44)
[2020-06-12] MEDS ORDERED: ONDANSETRON INJ 2 MG/ML 2 ML VIAL ONE (13:44)
[2020-06-12] MEDS ORDERED: SUCCINYLCHOLINE CHLORIDE 20 MG/ML 10 ML VIAL IV ONE (13:44)
[2020-06-12] MEDS ORDERED: PROPOFOL IV EMULSION 10 MG/ML 20 ML VIAL IV ONE (13:44)
[2020-06-12] MEDS ORDERED: fentaNYL citrate 100 MCG/2 ML VIAL ONE ×2 (13:44→15:38)
[2020-06-12] MEDS ORDERED: MIDAZOLAM HCL 1 MG/ML 2ML VIAL ONE (13:44)
[2020-06-12] MEDS ORDERED: ONDANSETRON INJ 2 MG/ML 2 ML VIAL IV PRN (14:02)
[2020-06-12] MEDS ORDERED: ePHEDrine sulfate 50 MG/ML AMP IV PRN (14:02)
[2020-06-12] MEDS ORDERED: fentaNYL citrate 100 MCG/2 ML VIAL IV PRN (14:02)
[2020-06-12] MEDS ORDERED: ATROPINE SULFATE 0.1 MG/ML 10ML SYR IV PRN (14:02)
--- NOTE | 2020-06-12 14:05 | Anesthesiology Consultation ---
Date of Service June 12, 2020 Assessment & Plan (1) Encounter for pre-operative examination: Chart Review Chart Review: Acceptable Risk for Surgery and Patient NOT seen in Pre Admission Testing Consults Requested none ASA ASA3 Proposed Anesthesia Anesthesia Type: General Risk / Benefits Reviewed With: PT / POA / Parent / Guardian, Accepts Plan and Informed Consent Obtained History Surgery Operation Date: 06/12/20 07:00 Proposed Procedures p Endoscopic Retrograde Cholangiopancreatogram - Surajgregorio Acevedo s Endoscopic Ultrasonography Upper - Shira Acevedo Height/Weight Height: 5 ft 8 in Weight: 74.3 kg Allergies Allergy/AdvReac Type Severity Reaction Status Date / Time No Known Allergies Allergy Unverified 06/11/20 15:08 Medications Home Medications Medication Instructions Recorded Confirmed Last Taken aspirin [Aspirin Low Dose] 81 mg PO DAILY 06/11/20 06/11/20 Unknown calcium carbonate [Calcium 600] 0 mg PO DAILY 06/11/20 06/11/20 Unknown cyanocobalamin (vitamin B-12) 0 mcg PO DAILY 06/11/20 06/11/20 Unknown [Vitamin B-12] insulin glargine [Lantus Solostar 50 unit SUBCUT BID 06/11/20 06/11/20 06/11/20 U-100 Insulin] losartan 50 mg PO QAM 06/11/20 06/11/20 06/11/20 metformin 1,000 mg PO BID 06/11/20 06/11/20 06/11/20 pantoprazole 40 mg PO QAM 06/11/20 06/11/20 06/11/20 polyethylene glycol 3350 [Miralax] 17 g PO DAILY PRN 06/11/20 06/11/20 Unknown simvastatin 40 mg PO HS 06/11/20 06/11/20 Unknown Active Medications Generic Name Dose Route Start Last Admin Trade Name Freq PRN Reason Stop Dose Admin Dextrose 25 - 50 ml 06/11/20 21:05 06/12/20 12:15 Dextrose 50% 50 Ml Syringe IV 07/11/20 21:04 25 ml UD PRN Administration Hypoglycemia Protocol Protocol Glucose 15 - 30 gm 06/11/20 21:05 06/12/20 05:17 Glucose 40% Gel 15 Gm Tube PO 07/11/20 21:04 15 gm UD PRN Administration Hypoglycemia Protocol Protocol Hydromorphone HCl 0.5 mg 06/11/20 21:05 06/12/20 11:31 Hydromorphone Inj 0.5 Mg/0.5 Ml Syr IV 06/25/20 21:04 0.5 mg Q2H PRN Administration Pain Piperacillin Sod/Tazobactam 115 mls @ 28.75 mls/hr 06/12/20 02:00 06/12/20 11:00 Sod 3.375 gm/ Dextrose IV 06/22/20 01:59 28.8 mls/hr Q8H HAO Administration Protocol Lactated Ringer's 1,000 mls @ 125 mls/hr 06/12/20 06:30 06/12/20 06:29 Lr IV 07/12/20 06:29 125 mls/hr .Q8H HAO Administration Insulin Aspart 0 units 06/12/20 00:00 06/12/20 12:20 Insulin Aspart 100 Units/Ml 3 Ml Pen SC 07/12/20 00:00 Not Given Q4 HAO Losartan Potassium 50 mg 06/12/20 09:00 06/12/20 07:48 Losartan Potassium 50 Mg Tab PO 07/12/20 08:59 Not Given QAM HAO Miscellaneous 15 - 30 gm 06/11/20 21:05 06/12/20 04:54 Carbohydrates For Hypoglycemia PO 07/11/20 21:04 15 gm UD PRN Administration Hypoglycemia Protocol Pantoprazole Sodium 40 mg 06/12/20 09:00 06/12/20 07:47 Pantoprazole 40 Mg Tab PO 07/12/20 08:59 Not Given QAM HAO Polyethylene Glycol 17 gm 06/12/20 09:00 06/12/20 07:47 Polyethylene (Miralax) 17 Gm Pack PO 07/12/20 08:59 Not Given DAILY HAO Simvastatin 40 mg 06/11/20 21:05 06/11/20 21:52 Simvastatin 40 Mg Tab PO 07/11/20 21:04 40 mg HS HAO Administration NPO Date Last Intake of Fluids: 06/12/20 Time Last Intake of Fluids: 00:00 Past Medical History Medical History (Updated 06/12/20 @ 14:04 by Leonardo Villagomez MD) Hyperlipidemia Hypertension Insulin dependent diabetes mellitus Exercise / Class Metabolic Activity II 4-5 Yardwork/Stairs/Walk up hill Past Anesthesia History No Hx of Anesthesia Complications and No Family Hx of Anesthesia Complications History of PONV No Hx of PONV and No Hx of Motion Sickness Social History Smoking Status: Former smoker Hx Alcohol Use: No Hx Substance Use: No Physical Exam Vital Signs Last Vital Signs Temp 37.2 C 06/12/20 06:53 Pulse 69 06/12/20 06:53 Resp 18 06/12/20 06:53 BP 141/66 H 06/12/20 06:53 Pulse Ox 90 06/12/20 06:53 ENMT Mouth: no dentition abnormality Thyromental Distance: > or= 3.5 Finger Breadths Mallampati Class: II Neck normal visual inspection Respiratory normal respiratory effort Auscultation: lungs clear to auscultation bilaterally Cardiovascular Rate/Rhythm: regular rate and regular rhythm Psychiatric Orientation: alert Testing Laboratory Results 06/12/20 06:29 06/12/20 06:29 PT 19.7 Seconds (9.0-12.0) H 06/11/20 14:25 INR 1.9 (0.9-1.1) H 06/11/20 14:25 Hemoglobin A1c 7.9 % (4.5-5.6) H 06/11/20 14:25 Urine Color [place] 06/11/20 14:25 Urine Appearance Clear (Clear) 06/11/20 14:25 Urine pH (4.5-7.5) 06/11/20 14:25 Ur Specific [place] 1.021 (1.000-1.030) 06/11/20 14:25 Urine Protein Negative (Negative) 06/11/20 14:25 Urine Glucose (UA) (Negative) 06/11/20 14:25 Urine Ketones (Negative) 06/11/20 14:25 Urine Nitrite (Negative) 06/11/20 14:25 Ur Leukocyte Esterase (Negative) 06/11/20 14:25 Urine RBC 0-4 /hpf (0-4) 06/11/20 14:25 Urine WBC 0-5 /hpf (0-5) 06/11/20 14:25 Ur Epithelial Cells 0-5 /lpf (0-5) 06/11/20 14:25 06/11/20 14:25 Urine Culture - Preliminary Urine,Clean Catch No growth - Less than 1,000 colonies/mL, Final report to follow. 06/12/20 06/12/20 06/12/20 12:35 12:03 08:08 POC Glucose 124 H 60 L* 76 06/12/20 06/12/20 06/12/20 05:33 05:11 05:09 POC Glucose 75 65 L* 57 L* 06/12/20 06/12/20 06/12/20 04:51 04:49 03:57 POC Glucose 58 L* 57 L* 71 06/12/20 03:49 POC Glucose 65 L*
--- NOTE | 2020-06-12 14:26 | History & Physical Bridge Note ---
Date of Service June 12, 2020 History & Physical Bridge Note I have examined the patient, reviewed the History & Physical and in the interval since the performance of the History & Physical I have noted the following changes of clinical significance: no changes noted CT results: A 2.8 x 2.2 cm ill-defined hypodense mass within the pancreatic head/neck resulting in dilatation of the biliary and pancreatic ducts. Findings are consistent with a pancreatic adenocarcinoma until proven otherwise. Impression: patient with painless jaundice found to have a 2.8 cm HOP mass. EUS / ERCP requested for further evaluation / treatment. We have discussed the risks to include bleeding, infection, perforation, pain, pancreatitis, insufficiet cellularity and failed biliary cannulation.
--- NOTE | 2020-06-12 14:58 | GI REPORT ---
Patient Name: Fady Kang Procedure Date: 06/12/2020 2:45 PM Date of : 1950 Admit Type: Inpatient Age: 70 Gender: Male Attending MD: Shira Acevedo DO Procedure: Upper GI endoscopy Providers: Shira Acevedo DO Referring MD: Augie Jones Indications: Abnormal CT of the GI tract Medicines: General Anesthesia Complications: No immediate complications. Estimated blood loss: Minimal. Estimated Blood Loss: Estimated blood loss was minimal. Procedure: Pre-Anesthesia Assessment: - Prior to the procedure, a History and Physical was performed, and patient medications, allergies and sensitivities were reviewed. The patient's tolerance of previous anesthesia was reviewed. - The risks and benefits of the procedure and the sedation options and risks were discussed with the patient. All questions were answered and informed consent was obtained. - Patient identification and proposed procedure were verified prior to the procedure by the physician, the nurse and the mixing plant dumper. The procedure was verified in the procedure room. - Pre-procedure physical examination revealed no contraindications to sedation. - ASA Grade Assessment: III - A patient with severe systemic disease. - After reviewing the risks and benefits, the patient was deemed in satisfactory condition to undergo the procedure. - The anesthesia plan was to use general anesthesia. - Immediately prior to administration of medications, the patient was re-assessed for adequacy to receive sedatives. - The heart rate, respiratory rate, oxygen saturations, blood pressure, adequacy of pulmonary ventilation, and response to care were monitored throughout the procedure. - The physical status of the patient was re-assessed after the procedure. After obtaining informed consent, the endoscope was passed under direct vision. Throughout the procedure, the patient's blood pressure, pulse, and oxygen saturations were monitored continuously. The Endoscope was introduced through the mouth, and advanced to the third part of duodenum. The upper GI endoscopy was accomplished without difficulty. The patient tolerated the procedure well. Findings: The examined esophagus was normal. The Z-line was regular and was found 38 cm from the incisors. Multiple 3 to 6 mm semi-sessile polyps with no bleeding and no stigmata of recent bleeding were found in the gastric fundus and in the gastric body. Biopsies were taken with a cold forceps for histology. The pathology specimen was placed into Bottle A. Estimated blood loss was minimal. The examined duodenum was normal. Impression: - Normal esophagus. - Z-line regular, 38 cm from the incisors. - Multiple gastric polyps (suspect fundic polyps). Biopsied. - Normal examined duodenum. Recommendation: - Perform an upper endoscopic ultrasound (UEUS) today. - Await pathology results,. Shira Acevedo D.O. Shira Acevedo, DO 06/12/2020 2:57:43 PM This report has been signed electronically. Note Initiated On: 06/12/2020 2:45 PM Number of Addenda: 0 I attest to the content of the Intraoperative Record and orders documented therein, exceptions below {[id number]}
--- NOTE | 2020-06-12 16:25 | Post Operative Brief Note ---
Immediate Post Op Note v1 Date of Surgery June 12, 2020 Pre & Post Diagnosis Operation Date: 06/12/20 07:00 Pre-Op Diagnosis: PANCREATIC HEAD MASS Post-Op Diagnosis: PANCREATIC HEAD MASS I identified the patient and participated in the time-out.: Yes Procedure Operation Date: 06/12/20 07:00 Actual Procedures p endoscopic retrograde cholangiopancreatography(Not Applicable) - Shira Acevedo (unable to cannulate the bilary tree) s Endoscopic Ultrasonography Upper(Not Applicable) - Shira Acevedo Surgeon Shira Acevedo Structural Iron Worker none Estimated Blood Loss 5 Findings Consistent with Post-Op Diagnosis
--- NOTE | 2020-06-12 16:27 | Communication Note ---
Date of Service: June 12, 2020 The patient underwent upper endoscopy endoscopic ultrasound and attempted ERCP today. He was found to have a large pancreatic head mass that seem to abut or invade the portal vein. Fine-needle aspiration was performed from the primary mass. No lymphadenopathy or metastatic disease was noted. We then attempted ERCP unfortunately I was not able to pass a wire beyond the mass despite use of multiple devices. Recommendations continue antibiotic coverage Recommend referral to a tertiary center as patient to have a second attempt with EUS guidance.
[2020-06-12] MEDS ORDERED: IOVERSOL 50ml IV ONE (16:30)
--- NOTE | 2020-06-12 16:32 | GI REPORT ---
Patient Name: Fady Kang Procedure Date: 06/12/2020 2:49 PM Date of : 1950 Admit Type: Inpatient Age: 70 Gender: Male Attending MD: Shira Acevedo DO Procedure: ERCP Providers: Shira Acevedo DO Referring MD: Augie Jones Indications: Abnormal endoscopic ultrasound of the biliary system, Jaundice, Tumor of the head of pancreas Medicines: General Anesthesia Complications: No immediate complications. Estimated blood loss: Minimal. Estimated Blood Loss: Estimated blood loss was minimal. Procedure: Pre-Anesthesia Assessment: - Prior to the procedure, a History and Physical was performed, and patient medications, allergies and sensitivities were reviewed. The patient's tolerance of previous anesthesia was reviewed. - The risks and benefits of the procedure and the sedation options and risks were discussed with the patient. All questions were answered and informed consent was obtained. - Patient identification and proposed procedure were verified prior to the procedure by the physician, the nurse and the hospital education coordinator. The procedure was verified in the procedure room. - Pre-procedure physical examination revealed no contraindications to sedation. - ASA Grade Assessment: III - A patient with severe systemic disease. - After reviewing the risks and benefits, the patient was deemed in satisfactory condition to undergo the procedure. - The anesthesia plan was to use general anesthesia. - Immediately prior to administration of medications, the patient was re-assessed for adequacy to receive sedatives. - The heart rate, respiratory rate, oxygen saturations, blood pressure, adequacy of pulmonary ventilation, and response to care were monitored throughout the procedure. - The physical status of the patient was re-assessed after the procedure. After obtaining informed consent, the scope was passed under direct vision. Throughout the procedure, the patient's blood pressure, pulse, and oxygen saturations were monitored continuously. The scope was introduced through the mouth, and advanced to the duodenum and used to inject contrast into the bile duct. The ERCP was unusually difficult due to difficulty passing guidewires through biliary ductal stenosis. The patient tolerated the procedure well. Findings: The associate field service engineer film was normal. The esophagus was successfully intubated under direct vision without detailed examination of the pharynx, larynx, and associated structures, and upper GI tract. The upper GI tract was grossly normal. The major papilla was normal. The bile duct could not be cannulated with the short-nosed traction sphincterotome and guidewire (numerous combinations were used, to include 0.035 and 0.025 Acrobat 2 guidewires, MET2 guidewire, and a Delta wire). Unfortunately the wire would not pass the mass/stricture to the upper biliary tree.. The total fluoroscopy exposure time was 4 minutes and 26 seconds. Indomethacin 100 mg was given via suppository to decrease the risk of post-ERCP pancreatitis (PEP). The endoscope was withdrawn from the patient. Impression: - The major papilla appeared normal. - Indomethacin given to decrease risk of post-ERCP pancreatitis. Recommendation: - Refer to Tertiary center at the next available appointment. - Patient will likely need a repeat attempt at ERCP with perhaps EUS assisted cannulation. Shira Acevedo D.O. Shira Acevedo, DO 06/12/2020 4:32:25 PM This report has been signed electronically. Note Initiated On: 06/12/2020 2:49 PM Number of Addenda: 0 I attest to the content of the Intraoperative Record and orders documented therein, exceptions below {[id number]}
--- NOTE | 2020-06-12 16:38 | GI REPORT ---
Patient Name: Fady Kang Procedure Date: 06/12/2020 2:48 PM Date of : 1950 Admit Type: Inpatient Age: 70 Gender: Male Attending MD: Shira Acevedo DO Procedure: Upper EUS Providers: Shira Acevedo DO Referring MD: Augie Jones Indications: Suspected mass in pancreas on CT scan Medicines: General Anesthesia Complications: No immediate complications. Estimated blood loss: Minimal. Estimated Blood Loss: Estimated blood loss was minimal. Procedure: Pre-Anesthesia Assessment: - Prior to the procedure, a History and Physical was performed, and patient medications, allergies and sensitivities were reviewed. The patient's tolerance of previous anesthesia was reviewed. - The risks and benefits of the procedure and the sedation options and risks were discussed with the patient. All questions were answered and informed consent was obtained. - Patient identification and proposed procedure were verified prior to the procedure by the physician, the nurse and the machine operator transplanter. The procedure was verified in the procedure room. - Pre-procedure physical examination revealed no contraindications to sedation. - ASA Grade Assessment: III - A patient with severe systemic disease. - After reviewing the risks and benefits, the patient was deemed in satisfactory condition to undergo the procedure. - The anesthesia plan was to use general anesthesia. - Immediately prior to administration of medications, the patient was re-assessed for adequacy to receive sedatives. - The heart rate, respiratory rate, oxygen saturations, blood pressure, adequacy of pulmonary ventilation, and response to care were monitored throughout the procedure. - The physical status of the patient was re-assessed after the procedure. After obtaining informed consent, the endoscope was passed under direct vision. Throughout the procedure, the patient's blood pressure, pulse, and oxygen saturations were monitored continuously. The Endosonoscope was introduced through the mouth, and advanced to the second part of duodenum. The upper EUS was accomplished without difficulty. The patient tolerated the procedure well. Findings: ENDOSONOGRAPHIC FINDING: : There was no sign of significant endosonographic abnormality in the ampulla. No masses were identified. There was dilation in the common bile duct which measured up to 14 mm. Moderate hyperechoic material consistent with sludge was visualized endosonographically in the gallbladder. Intrahepatid ductal dilation No lymphadenopathy seen. An oval mass was identified in the pancreatic head. The mass was hypoechoic. The mass measured 26 mm by 23 mm in maximal cross-sectional diameter. The endosonographic borders were poorly-defined. There was sonographic evidence suggesting invasion into the portal vein (manifested by abutment). An intact interface was seen between the mass and the superior mesenteric artery, celiac trunk and duodenum suggesting a lack of invasion. The remainder of the pancreas was examined. The endosonographic appearance of parenchyma and the upstream pancreatic duct indicated parenchymal atrophy. Fine needle aspiration for cytology was performed. Color Doppler imaging was utilized prior to needle puncture to confirm a lack of significant vascular structures within the needle path. Six passes were made with the 22 gauge needle using a transduodenal approach. A stylet was used. A boiler/chiller operator was present to evaluate the adequacy of the specimen. Final cytology results are pending. Estimated blood loss was minimal. Impression: - There was no sign of significant pathology in the ampulla. - There was dilation in the common bile duct which measured up to 14 mm. - Hyperechoic material consistent with sludge was visualized endosonographically in the gallbladder. - A 26 x 23 mass was identified in the pancreatic head. This was staged T3 N0 Mx by endosonographic criteria. The staging applies if malignancy is confirmed. Fine needle aspiration performed. Recommendation: - Perform an ERCP today. - Await cytology results. Shira Acevedo D.O. Shira Acevedo, 06/12/2020 4:38:00 PM This report has been signed electronically. Note Initiated On: 06/12/2020 2:48 PM Number of Addenda: 0 I attest to the content of the Intraoperative Record and orders documented therein, exceptions below {[id number]}
--- NOTE | 2020-06-12 16:49 | Fluoroscopy Report ---
[place] ERCP biliary ductal HISTORY: 70 years-old Male EXPLORE DUCTS COMPARISON: CT abdomen and pelvis 06/11/2020 TECHNIQUE: 2 spot fluoroscopic images of the abdomen were obtained utilizing 4 minutes and 36.9 secon ds fluoroscopy time FINDINGS: Endoscope is noted within the duodenum. A guidewire is noted within the expected location of the duod enum. There is no definite cannulation or retrograde contrast injection into the common bile duct. Ch olelithiasis. IMPRESSION: Fluoroscopic assistance as above. Please see procedural report for further details. ACT 112: Negative or not required by law. The above report was generated using voice recognition software. It may contain grammatical, syntax o r spelling errors. Electronically signed by: Luis Cleveland M.D. 06/12/2020 4:47 PM
--- NOTE | 2020-06-12 16:57 | Anesthesiology Progress Note ---
Date of Service June 12, 2020 Anesthesia Post Procedure Vital Signs Vital Signs: Temp Pulse Pulse Pulse Resp BP BP 06/12/20 16:45 36.5 C 73 19 168/80 H 06/12/20 16:35 79 22 173/84 H 06/12/20 16:25 82 20 177/76 H 06/12/20 16:19 36.8 C 84 20 168/79 H 06/12/20 14:01 37.5 C 72 20 150/70 H 06/12/20 06:53 37.2 C 69 18 141/66 H 06/12/20 06:24 37 C 67 18 157/73 H 06/12/20 06:09 37.0 C 66 16 151/80 H 06/12/20 05:46 36.9 C 68 16 141/63 H 06/11/20 23:47 37.6 C H 79 18 161/69 H 06/11/20 21:06 37.3 C 105 H 16 06/11/20 20:53 94 H 18 163/76 H 06/11/20 20:00 93 H 20 06/11/20 18:54 88 16 BP Pulse Ox 06/12/20 16:45 93 06/12/20 16:35 96 06/12/20 16:25 96 06/12/20 16:19 96 06/12/20 14:01 92 06/12/20 06:53 90 06/12/20 06:24 91 06/12/20 06:09 93 06/12/20 05:46 97 06/11/20 23:47 96 06/11/20 21:06 167/76 H 95 06/11/20 20:53 95 06/11/20 20:00 176/87 H 100 06/11/20 18:54 173/86 H 95 Pain Intensity Medial Back: Pain Intensity: 5 Transfer of Care Handoff Completed per policy Notes Mental Status: alert / awake / arousable Patient Amnestic to Procedure: Yes Nausea / Vomiting: adequately controlled Pain: adequately controlled Airway Patency, RR, SpO2: stable & adequate BP & HR: stable & adequate Hydration State: stable & adequate Anesthetic Complications: no major complications apparent
[2020-06-12] MEDS ORDERED: Nursing to Pharmacy Communication SCH (19:00)
--- NOTE | 2020-06-12 19:31 | Billing Data ---
Date of Service June 12, 2020 Coding Level of Care Code 24592 Initial Inpt Care Lvl 3
--- NOTE | 2020-06-12 19:38 | Billing Data ---
Date of Service June 12, 2020 Coding Level of Care Code 18914 Subseq Hosp Care Lvl 3
[2020-06-12] MEDS ORDERED: INSULIN GLARGINE SOLOSTAR 100 UNITS/ML 3 ML PEN SC SCH (21:00)
[2020-06-12] MEDS: SIMVASTATIN 40 MG TAB PO SCH (21:07)
[2020-06-13] MEDS: PIPERACILLIN/TAZOBACTAM 3.375 GM in DEXTROSE 5% 100 ML IV SCH ×3 (01:39→19:06)
[2020-06-13] MEDS: INSULIN ASPART 100 UNITS/ML 3 ML PEN SC SCH ×4 (03:38→21:18)
[2020-06-13] MEDS: HYDROmorphone INJ 0.5 MG/0.5 ML SYR IV PRN ×5 (04:53→20:39)
[2020-06-13 06:56] LABS: Basophils # (auto) 0.03 K/uL (0-0.2); Basophils % (auto) 0.3 %; Eosinophils # (auto) 0.05 K/uL (0-0.5); Eosinophils % (auto) 0.5 %; Hematocrit (blood only) 31.5 % (42-52); Hemoglobin 10.8 g/dL (14.0-18.0); Immature Granulocytes # (auto) 0.02 K/uL (0.00-0.02); Immature Granulocytes % (auto) 0.2 %; Lymphocytes # (auto) 0.86 K/uL (1.2-3.4); Lymphocytes % (auto) 8.5 %; Mean Corpuscular Hgb Conc 34.3 g/dL (32-36); Mean Corpuscular Volume 87.5 fL (80-100); Mean Platelet Volume 11.5 fL (7.4-10.4); Monocytes # (auto) 1.26 K/uL (0.11-0.59); Monocytes % (auto) 12.5 %; Neutrophils # (auto) 7.84 K/uL (1.4-6.5); Platelet Count 203 K/uL (130-400); RDW Coefficient of Variation 14.7 % (11.5-14.5); White Blood Count 10.06 K/uL (4.8-10.8)
--- NOTE | 2020-06-13 06:57 | Discharge Summary ---
Date of Service June 13, 2020 Admission HPI Per Admitting Provider Fady Kang is a 70 year old woman with a past medical history significant for type 2 diabetes who has been having abdominal discomfort for past month. Discomfort started out mild and was after eating. This then progressed to pain and for the last two and a half weeks he has become progressively more jaundiced. His abdominal discomfort led to a decreased PO intake and he has lost about 12.5 pounds. He does not has not had nausea or vomiting only pain discomfort and constipation. He has been seeing his primary care midlevel provider several times for these symptoms over the past month and finally was referred to gastroenterology this last week where he was ordered a gall bladder u/s secondary to cholestatic lab results. Based on the biliary dilation he was told to present to emergency department to rule out biliary stones or sludge. vital signs wnl here in ED labwork significant for elevated INR 1.9, hyponatremia of 134, elevated glucose of 273, t bili of 13.4, AST 284, ALT 517, Alk Phos 1037, albumin of 3.0. CT abdomen showing ill defined 2.8 x 2.2 cm mass in the pancreatic head resulting in dilation of both the biliary and pancreatic ducts. 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 pipe smoker thrity years ago, never drinker never drug user. WIshes to be DNR/DNI Admission Exam Per Admitting Provider Constitutional: Uncomfortable appearing 70 year old man lying in bed grossly jaundiced Eyes: Scleral icterus clearly present, EOMMI bilaterally ENMT: NAD NEck: NAD, no jVD REspiratory: No increased work of breathing, lung sounds vesicular throughout Cardiovascular: Regular rate and regular rhythm, loud systolic murmur that he tells me he has no history of GI: Abdomen soft, mildly tender throughout Skin: Jaundiced, no rashes or wounds, no bruising Principal Diagnosis pancreatic mass jaundice Discharge Exam Constitutional WD/WN, vitals as above Eyes PERRL, conjunctivae normal, anicteric sclerae ENMT external ear and nose normal, oropharynx normal Respiratory normal respiratory effort, lungs clear to auscultation Cardiovascular RRR, no murmur, no edema Skin + jaundice Discharge Data Allergies Allergy/AdvReac Type Severity Reaction Status Date / Time No Known Allergies Allergy Unverified 06/11/20 15:08 Consultations 06/11/20 19:05 ED Decision to Admit Stat 06/11/20 21:05 Consult Gastroenterology Routine Consult Oncology Routine 06/12/20 19:07 Burn CD for patient Stat Procedures Performed Operation Date: 06/12/20 07:00 Actual Procedures p endoscopic retrograde cholangiopancreatography(Not Applicable) - Shira Acevedo s Endoscopic Ultrasonography Upper(Not Applicable) - Shira Acevedo Ordered Studies 06/11/20 14:10 CT abd pelvis oral and IV con Stat 06/12/20 07:44 CT chest wo con Routine 06/12/20 14:00 [place] ERCP biliary ductal Routine 06/12/20 14:38 US upper EUS PACS images Routine Hospital Course (1) Mass of pancreas: Mr. Kang is a 70-year-old man with a past medical history of DM II and vocal cord polyp who is here for jaundice abdominal pain and weight loss over the past month who was found to have a new pancreatic head mass on CT. New Abdominal Mass In this patient with Abdominal Pain, jaundice, weight loss, and double duct sign with new mass on CT this is highly suspicious of pancreatic malignancy - transfer to tertiary since unable to pass stent with ERCP, requiring repeat attempt with EUS. certainly highly suspicious for malignancy, likely is cause of moderate protein/calorie malnutrition as well - NPO, LR 125 mls/hour - Oncology consulted recommendations included transfer to further evaluate and treat concerning pancreatic mass - Tramadol for pain relief Dilaudid for severe pain - CT chest did not show metastasis Liver Failure INR of 1.9 will treat with 2.5 mg Vitamin K in preparation for procedure tomorrow AST 284, ALT 517 Alk phos 1037 t bili 13.4 MELD score of 25 no significant ascites Fever at Home - Afebrile since being here but fevers and chills at home - COVID negative DMII - became hypoglycemic while NPO, holding insulin UTI difficult to assess with degree of bilirubin in urine But bacteria present, treating with zosyn (broad spectrum due to potential for biliary source of infection as well) HLD Continuing home simvastatin (2) Hypertension: (3) Insulin dependent diabetes mellitus: (4) Hyperlipidemia: (5) Jaundice: Total Time Total Time Spent Total Time Spent (In Minutes): <30 Discharge Plan Discharge Items Patient Disposition: Transfer Acute Care Hospital Reason For Visit: PANCREATIC HEAD MASS Discharge Diagnosis: pancreatic head mass Activity: Per Instructions section Non-emergency contact: Primary Care Provider and Cytopathologist Call non-emergency contact if: your symptoms worsen Follow-up/Referrals: Jesus Posada [Primary Care Provider] - Diet: Nothing by Mouth Addtl Attending Provider Instructions: Mr. Kang is a 70-year-old man with a past medical history of DMII and vocal cord polyp who is here for jaundice abdominal pain and weight loss over the past month who was found to have a new pancreatic head mass on CT. New Abdominal Mass In this patient with Abdominal Pain, jaundice, weight loss, and double duct sign with new mass on CT this is highly suspicious of pancreatic malignancy - transfer to tertiary since unable to pass stent with ERCP, requiring repeat attempt with EUS. certainly highly suspicious for malignancy, likely is cause of moderate protein/calorie malnutrition as well - NPO, LR 125 mls/hour - Oncology consulted recommendations included transfer to further evaluate and treat concerning pancreatic mass - Tramadol for pain relief Dilaudid for severe pain - CT chest did not show metastasis Liver Failure INR of 1.9 will treat with 2.5 mg Vitamin K in preparation for procedure tomorrow AST 284, ALT 517 Alk phos 1037 t bili 13.4 MELD score of 25 no significant ascites Fever at Home - Patient with what appears to be UTI and biliary obstruction will cover both sources with Zosyn urine cultures pending - Afebrile since being here but fevers and chills at home - COVID negative DMII - became hypoglycemic while NPO, holding insulin - PHARMACY PLAN FOR INPATIENT GLYCEMIC CONTROL: - Holding outpatient oral diabetes medications - Basal insulin Lantus - 25-30 units this AM based upon BSG - Bolus insulin NovoLog per scale ACHS or Q6hrs while NPO - Goal Range: Low 110 mg/dL - High 140 mg/dL - Correction Factor: 20 mg/dL/unit - Nutritional / Prandial insulin per carb ratio of 1 unit per 9 grams CHO consumed UTI difficult to assess with degree of bilirubin in urine But bacteria present, treating with zosyn (broad spectrum due to potential for biliary source of infection as well) HLD Continuing home simvastatin F/E/N: NPO DVT PPx: SCD's for now and ambulation lovenox can be ordered post procedure Code status: DNR/DNI Pending Studies at Discharge: Yes Stand-Alone Forms: My [facility] Skilled Items Patient informed of condition?: Yes DNR: Yes Discharge Level of Care: Other Communicable Disease: No Discharge Prognosis: Stable Lines: Peripheral IV Urinary Catheter: No Medications and DC Order Prescriptions: Continued losartan 50 mg tablet 50 mg PO QAM RF: 0 polyethylene glycol 3350 [Miralax] 17 gram Powder In Packet 17 g PO DAILY PRN (Reason: Constipation) RF: 0 aspirin [Aspirin Low Dose] 81 mg Tablet,Delayed Release (Dr/Ec) 81 mg PO DAILY RF: 0 simvastatin 40 mg Tablet 40 mg PO HS RF: 0 calcium carbonate [Calcium 600] 600 mg calcium (1,500 mg) Tablet 0 mg PO DAILY RF: 0 pantoprazole 40 mg Tablet,Delayed Release (Dr/Ec) 40 mg PO QAM RF: 0 Discontinued cyanocobalamin (vitamin B-12) [Vitamin B-12] 1,000 mcg Tablet 0 mcg PO DAILY RF: 0 metformin 1,000 mg tablet 1,000 mg PO BID RF: 0 Lantus Solostar U-100 Insulin 100 unit/mL (3 mL) insulin pen 50 unit SUBCUT BID RF: 0 Discharge Orders: Discharge Order (Routine); Ordered 06/13/20 Ordered By: Elvin Mendez Admission Data Admit Date/Time: 06/11/20 20:26 Attending Provider: Augie Calvo Admit Provider: Jv Dubon Primary Care Provider: Jesus Posada Other Providers: Jv Dubon ; Gabe Torres ; Jesus Ifnante V. Supervising Physician Co-Signing Physician Notes I personally examined the patient and verified all connell points of history and exam, discussed case, and agree with decision making with Dr Mendez. accepted at [facility], awaiting a bed. no new complaints or issues. vitals noted nad heent nc at mmm breathing unlabored no accessory muscles good effort skin no rashes no pallor but does have marked icterus obstructing pancreatic mass - awaiting transfer to tertiary since unable to pass stent. certainly highly suspicious for malignancy, likely is cause of moderate protein/calorie malnutrition as well. otherwise as above Resident Activity Tracking Resident Involvement: Resident Care Provided Care Provided: Adult [facility] Medicine CBC Results Results Complete Blood Count Results: RBC 3.60 M/uL (4.7-6.1) L 06/13/20 WBC 10.06 K/uL (4.8-10.8) 06/13/20 Hgb 10.8 g/dL (14.0-18.0) L 06/13/20 Hct 31.5 % (42-52) L 06/13/20 Plt Count 203 K/uL (130-400) 06/13/20 Chemistry ([facility]) Results [facility] Results: Sodium 134 mmol/L (136-145) L 06/13/20 Potassium 4.0 mmol/L (3.5-5.1) 06/13/20 Chloride 101 mmol/L (98-107) 06/13/20 BUN 12 mg/dl (7-18) 06/13/20 Creatinine 0.85 mg/dl (0.6-1.4) 06/13/20 Glucose 208 mg/dl (70-99) H 06/13/20
[2020-06-13 07:27] LABS: Albumin Level 2.3 gm/dl (3.4-5.0); BUN Creatinine Ratio 14.3 (10-20); Calcium 8.5 mg/dl (8.5-10.1); Creatinine Clr Calc Pharmacy 80.5 ml/min; Est GFR (African American) 103.8; Est GFR (Non-African American) 89.5
[2020-06-13 07:33] LABS: Total Protein 5.7 gm/dl (6.4-8.2)
[2020-06-13 08:35] LABS: Bilirubin Direct 12.8 mg/dl (0-0.2)
[2020-06-13] MEDS: LACTATED RINGER'S 1,000 ML IV SCH ×2 (08:40→13:56)
[2020-06-13] MEDS: LOSARTAN POTASSIUM 50 MG TAB PO SCH (08:41)
[2020-06-13] MEDS: PANTOprazole 40 MG TAB PO SCH (08:41)
[2020-06-13] MEDS: POLYETHYLENE (MIRALAX) 17 GM PACK PO SCH (08:41)
--- NOTE | 2020-06-13 08:43 | Pharmacy Report ---
Pharmacy Glycemic Short Note 2 - Date of Service June 13, 2020 - Glycemic Short BSG Results (Last 24 hours): 06/12/20 06/12/20 06/12/20 12:03 12:35 16:23 Glucose POC Glucose 60 L* 124 H 53 L* 06/12/20 06/12/20 06/12/20 16:24 16:41 17:24 Glucose POC Glucose 54 L* 87 92 06/12/20 06/12/20 06/13/20 20:00 23:45 03:36 Glucose POC Glucose 100 H 251 H 241 H 06/13/20 06/13/20 06:13 08:15 Glucose 208 H POC Glucose 191 H ASSESSMENT: 06/13 * Patient only received 4 units of insulin yesterday, continues NPO status. BSGs continued to be lower yesterday secondary to too much basal given day prior * BSGs trending up overnight in the 200s, 191 mg/dL this AM - Will resume basal now. Had received 65 units of basal 06/11 which resulted in low BSGs, plan to give a little less than half of dose this AM (equivalent to stress of 2 dosing) and plan to titrate up slowly * Tighten CF this AM. Per notes, plan to transfer to tertiary care since unable to pass stent with ERCP. Mass suspicious for malignancy 06/12 * 70 year old male with abdominal pain, jaundice, weight loss found to have new pancreatic mass. GI consulted and plan to perform ERCP this morning. Patient NPO. Patient type 2 diabetic managed on insulin and metformin at home. * Per report patient believes he took 50 of Lantus FLAT FOLDER yesterday AM. Ordered 15 units of Lantus at HS yesterday night for BSG of 324 mg/dL. Patient met with DM educator today and patient reports lower BSGs overnight therefore has been taking less Lantus in evening (35-45 units instead). With current pancreatic issues/concerns currently, would need to reevalute use of trulicity on discharge * Overnight BSGs trending down quickly, treated per hypoglycemia protocol with 15 gm of CHO x 2. AM BSG 75 mg/dL Plan to hold further basal insulin until BSGs trending upward. Plan to have ERCP today as patient continues on NPO status. Discussed with provider possibly starting some IV fluids with dextrose if BSGs continuing to trend downward PLAN FOR INPATIENT GLYCEMIC CONTROL: * Holding outpatient oral diabetes medications * Basal insulin * Lantus - 25-30 units this AM based upon BSG * Bolus insulin * NovoLog per scale ACHS or Q6hrs while NPO * Goal Range: Low 110 mg/dL - High 140 mg/dL * Correction Factor: 20 mg/dL/unit * Nutritional / Prandial insulin per carb ratio of 1 unit per 9 grams CHO consumed * Please note that the plan above was derived based on current level of insulin resistance and hospital stress. These recommendations are appropriate for inpatient admission only. Plan of care upon discharge will need to be reassessed to avoid potential outpatient hypo/hyperglycemia. Thank you. PLAN FOR DISCHARGE: * A1c 7.9% on admission. Goal <7% reasonable * Patient met with DM educator and discussed patient experiencing frequent overnight hypoglycemia. He had been taking reduced doses of Lantus in evening because of this * Would recommend decrease in basal insulin on discharge. Could consider ~25-30% decrease in basal. * Would recommend holding Trulicity on discharge given current pancreatic mass findings. Could consider addition of novolog with meals to provide additional coverage throughout the day if needed
[2020-06-13] MEDS ORDERED: INSULIN GLARGINE SOLOSTAR 100 UNITS/ML 3 ML PEN SC SCH (09:00)
--- NOTE | 2020-06-13 09:04 | Progress Notes ---
DATE: 06/13/2020 DIAGNOSES: 1. Pancreatic head mass. 2. Hyperbilirubinemia. 3. Elevated liver transaminases. 4. Coagulopathy attributable to vitamin K deficiency. 5. Jaundice. SUBJECTIVE: The patient was seen and examined at bedside. He denies any pain at this time, but remains quite jaundiced. His appetite is not necessarily improved much. Plans are underway to have him transferred to the [facility] to be evaluated for resectability. I was pleased to see CT scan of the chest was performed showing no evidence of metastatic disease. ERCP was attempted by Dr. Acevedo. He was unable to cannulate the hepatic/pancreatic duct. According to the patient, he awaits a bed at the [facility]. Nursing offers no issues with overnight difficulties in this patient's regard. OBJECTIVE: GENERAL: A very pleasant 70-year-old gentleman, in no acute distress. VITAL SIGNS: Temperature 36.6, pulse 75, respiratory rate 16, blood pressure 142/71. SKIN: Diffusely jaundiced. HEENT: Oral mucosa without erythema or ulceration. HEART: Regular rate and rhythm. LUNGS: Clear to auscultation. ABDOMEN: ____ mild epigastric tenderness. No rigidity or guarding. EXTREMITIES: No clubbing, cyanosis or edema. NEUROLOGICAL: Grossly intact. LABORATORY DATA: WBC count 10,060, hemoglobin 10.8, platelet count 203,000. Sodium 134, potassium 4.0, chloride 101, carbon dioxide 28, creatinine 0.85, BUN 12. Total bilirubin 16, AST 230, ALT 374, alkaline phosphatase 962, albumin 2.3. IMPRESSION: 1. 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 2. Jaundice. 3. Hyperbilirubinemia. 4. Elevated liver transaminases. 5. Hypoalbuminemia. 6. Coagulopathy attributable to vitamin K deficiency. PLAN: Agree with the consultants on board. This gentleman needs to be transferred to be surgically staged and evaluate for resectability. I prepared the patient for the possibility he may require neoadjuvant chemotherapy and reevaluated for resection. I was cautiously optimistic, there does not appear to be a disseminated metastatic disease on either image. Apparently Dr. Acevedo from attempted ERCP, but was unsuccessful in placing a stent. According to the patient, he awaits bed at [facility] and I will plan to reconvene with him when workup is complete. I agree with medical management otherwise and again will plan to reconvene with the patient in the outpatient arena. Thank you again for allowing me to participate in his care and I will officially sign off unless his condition changes.
--- NOTE | 2020-06-13 09:12 | Communication Note ---
Date of Service: June 13, 2020 Transfer pending. Discussed with patient.
[2020-06-13] MEDS ORDERED: INSULIN ASPART 100 UNITS/ML 3 ML PEN SC SCH (12:00)
[2020-06-13] MEDS ORDERED: Nursing to Pharmacy Communication SCH (15:00)
--- NOTE | 2020-06-13 19:41 | Billing Data ---
Date of Service June 13, 2020 Coding Level of Care Code D/C Day Management <30 mins
[2020-06-13] MEDS: SIMVASTATIN 40 MG TAB PO SCH (20:36)
[2020-06-13] MEDS ORDERED: HYDROmorphone INJ 1 MG/ML SYRINGE IV STA (23:15)
[2020-06-13] MEDS ORDERED: HYDROmorphone INJ 1 MG/ML SYRINGE ONE (23:17)
== END 2020-06-13 23:25 | disposition short-term general hospital (02) | DRG 436 ==
LOC: ED 13:18 → 3W 20:26 → SUATTDRO 20:26 → 3W 20:53

== ENCOUNTER 2020-10-31 22:14 | Observation (INO) ==
[2020-10-31] MEDS ORDERED: SODIUM CHLORIDE 0.9% 1000ML 2,000 ML IV ONE (23:03)
[2020-10-31] MEDS ORDERED: VANCOMYCIN CONSULT ACTIVE PRN (23:05)
[2020-10-31] MEDS ORDERED: VANCOMYCIN HCL 1,250 MG in SODIUM CHLORIDE 0.9% 500 ML IV ONE (23:05)
[2020-10-31] MEDS ORDERED: CEFEPIME 2,000 MG/20 ML VIAL IV STA (23:05)
--- NOTE | 2020-10-31 23:11 | Emergency Department Note ---
Impression & Plan Sepsis, Neutropenic fever, Hypomagnesemia ED Provider Note Name: ALICE MORALES Age: 70 Sex: M Arrives Via: Walk-In Informant: Patient, ED Provider: Sabas Foley MD Chief Complaint: Fever Impression: Sepsis Neutropenic Fever Hypomagnesemia Medical Decision Makin yr old male with metastatic Pancreatic CA on week 9 of chemo (last infusion 1 week ago) arrives with fevers at home associated with rigors, nausea, vomiting and fatigue. Tachycardic, dehydrated on exam and tired appearing though stable. Right arm with evidence of infiltration earlier in day without crepitus, compartment syndrome nor n/v compromise. Lungs clear, abdomen soft. Concern for sepsis on arrival thus 30ml/kg IV fluids, cefepime and vanco ordered along with cultures, and blood work. CXR clear. EKG tachy. Labs return with neutropenia, significant elevation of Procal as well as modest lactate elevation. His mag is low which has been progressively worsening recently. Procal could be due to cancer or recent iv infiltration but in setting of rigors, and febrile neutropenia very concerning for sepsis. Patient feeling improved with fluids. Long discussion pros/cons of admission as patient and prefer to go home, but with labs and findings I made it clear I felt admission necessary and they agreed with hospitalization. Repeat Lactate coming down nicely post IV fluids. No clear source of infection at this time. Prior Medical Record and Triage/Nursing Notes reviewed by Me Additional history obtained from chart and Differentials:Viral syndrome, otitis, pharyngitis, pneumonia, influenza, meningitis, urinary tract infection, sepsis, bacteremia, as well as other pathologies. Vital Signs: reviewed and remarkable for tachycardia Interventions: NSS Bolus 2L IV, Vanco IV, Cefepime IV Labs:Reviewed and remarkable for +procalcitonin, +lactate, low wbc, low mag Imaging:X ray results are stated below per my interpretation: Chest: 1 view: No infiltrate, no effusion, normal cardiac border. Right chest port in place EKG:Per My Interpretation: Indication Sepsis: Sinus Tach 110 bpm, qtc 411. PAC noed. No Ischemia. Compared to EKG 07/26/20 heart rate has increased. Cardiac/Tele Monitoring: Cardiac Monitoring: An Order was placed for continuous cardiac monitoring. The monitor shows a rate of 122 with a sinus tach rhythm. Consults:Dr Ling AMARO Hospitalist Plan: Disposition:Hospitalization. Condition: Fair History of Present Illness:70 yr old male with metastatic pancreatic cancer, DMII, HTN, DLP, GERD arrives for evaluation of fever. Patient current on week 9 of chemotherapy, last given 1 week ago. He notes that 2 days ago started having fevers (took Tylenol prior to arrival). Over last 48 hours increasing fevers, body aches, chills, and nausea. Started vomiting today. Used Tylenol this evening with mild improvement. He has chronic runny nose with chemo. Denies chest pain, sob, headache, neck pain, abdominal pain, urinary symptoms, bowel symptoms, blood stool, rashes, leg swelling, syncope, nor other symptoms. No falls, trauma, injuries. He has not had COVID nor known exposure. He notes worse with standing better with laying flat. He had CT scan at [facility] today where the dye infiltrated in right arm which is not bothering him currently. Patient with right chest mediport, no discomfort nor redness. ROS: See above HPI for pertinent positives & negatives. A total of 10 systems reviewed and were otherwise negative. Past Medical History:Pancreatic CA, DMII, HTN, DLP, GERD Past Surgical History:See Below Family History:See Below Social History:See Below Home Medications:See Below Allergies:Versed Vitals:Blood Pressure: 123/65, Pulse 119, RR 22, T 37.2C, O2 94% on RA Physical Exam: GENERAL: Patient is uncomfortable appearing and in mild distress. Dehydrated appearing EYES: No scleral icterus, unremarkable pupils. ENT: Mucous membranes dry, no nasal congestion. NECK: No masses appreciated, nomeningismus, trachea is midline. RESPIRATORY: No dyspnea. Clear to auscultation and equal bilaterally. No wheeze, no rhonchi. CARDIOVASCULAR: Tachy.No murmurs, rubs, gallops appreciated. Port right upper chest. GASTROINTESTINAL: Abdomen soft, non-tender, no peritonitis.Bowel sounds positive.No masses appreciated. BACK: No midline tenderness, no CVA tenderness EXTREMITIES: Normal motion all extremities, no cyanosis, no edema. NEUROLOGIC: Alert and oriented, no acute motor or sensory deficits, no focal weakness, cranial nerves grossly intact. SKIN: No rash, mild jaundice, no diaphoresis. PSYCH: Appropriate GCS: 15 ED Course: Times/Reassessments: Improving HR. Willing to stay for hospitalization. Critical Care: I have personally spent 35 minutes of critical care time in the direct management of this patient. Neutropenic fever with sepsis and lactic acidosis requiring fluid resus and aggressive abx management. This was a life/limb threatening event. This 35 minutes is in excess of all separately billable procedures. Sabas Foley MD Past Med/Surg History Medical History (Updated 11/01/20 @ 04:01 by Sabas Foley MD) Diabetes mellitus, type 2 GERD (gastroesophageal reflux disease) Hyperlipidemia Hypertension Insomnia REASON FOR ZOLOFT Pancreatic cancer NEW DX Surgical History History of anesthesia reaction REACTION TO VERSED (EVENT WITH BILIARY TUBE PLACEMENT AT [facility])- WAS COMBATIVE AND AGITATED- NO ISSUES WITH VERSED PRIOR TO BILARY TUBE PLACEMENT ON 06/18/20 PER PATIENT) History of biliary stent insertion DRAINING INTO INTESTINAL TRACT (PROCEDURE DONE AT [facility]) History of biliary T-tube placement PORT STILL IN PLACE/NO BAG History of colonoscopy History of ERCP X 3 History of esophagogastroduodenoscopy (EGD) History of tonsillectomy and adenoidectomy Hx of vasectomy Port-A-Cath in place (08/01/20) Insertion of Mediport with Fluoroscopy Dr. Cummins 08/01/2020 Vocal cord polyp REMOVED Family History Grandmother (Maternal) Cancer kidney Grandmother (Paternal) Family history of diabetes mellitus Other No family history of adverse response to anesthesia Social History Smoking Status: Never smoker Second Hand Exposure: No; Hx Alcohol Use: No Hx Substance Use: No Preferred Language: Korean Communication Ability: Effective Outside Salesperson Required: No Beliefs That Will Affect Care: None marital status: Current Living Situation: Spouse current occupational status: retired How many Children do You have: 2 Feels Safe at Home: Yes Assistive Devices: Glasses and Hearing Aid - Right Allergies Allergies Allergy/AdvReac Type Severity Reaction Status Date / Time midazolam [From Versed] AdvReac Intermediate AGITATED/CO Verified 10/31/20 23:58 MBATIVE Home Meds Home Medications Medication Instructions Recorded Confirmed calcium carbonate [Calcium 600] 600 mg PO BID 06/11/20 10/31/20 pantoprazole 40 mg PO QAM 06/11/20 10/31/20 polyethylene glycol 3350 [Miralax] 17 g PO DAILY PRN 06/11/20 10/31/20 simvastatin 40 mg PO QPM 06/11/20 10/31/20 metformin 1,000 mg tablet 1,000 mg PO BID 07/26/20 10/31/20 Lantus Solostar U-100 Insulin 40 unit SUBCUT BID 07/27/20 10/31/20 cyanocobalamin (vitamin B-12) 1,000 mcg PO QAM 07/27/20 10/31/20 losartan 100 mg PO QAM 07/27/20 10/31/20 sertraline [Zoloft] 50 mg PO QPM 07/27/20 10/31/20 ibuprofen 600 mg PO Q6H PRN 08/01/20 10/31/20 magnesium oxide 400 mg PO QAM 10/31/20 10/31/20 Results & Data (ED) Vital Signs Vital Signs - 24 hr 10/31/20 22:16 10/31/20 23:00 10/31/20 23:02 Temperature 37.2 C Temperature Source Temporal Artery Scan Pulse Rate 133 H 118 H 118 H Pulse Rate [Right Finger] 119 H Pulse Rate from SpO2 Sensor 117 H 117 H Pulse Rhythm [Right Finger] Regular Pulse Strength [Right Finger] Normal Respiratory Rate 18 27 H 27 H Respiratory Effort / Characteristics Non-Labored Spontaneous Respiratory Depth Normal Respiratory Pattern Regular Blood Pressure 115/65 123/65 Blood Pressure [Right Arm] 123/65 Blood Pressure Mean 81 84 Blood Pressure Mean [Right Arm] 84 Blood Pressure Position Sitting Pulse Oximetry 96 94 94 Oxygen Delivery Method Room Air Room Air Sepsis Recent Fever Within 48 Hours Yes Sepsis New/Unexplained Change in Mental Status N/A Sepsis Action Taken by Nursing No Action Required 10/31/20 23:30 11/01/20 00:00 11/01/20 00:01 Temperature Temperature Source Pulse Rate 108 H 110 H 110 H Pulse Rate [Right Finger] Pulse Rate from SpO2 Sensor 108 H 114 H 105 H Pulse Rhythm [Right Finger] Pulse Strength [Right Finger] Respiratory Rate 17 21 21 Respiratory Effort / Characteristics Respiratory Depth Respiratory Pattern Blood Pressure 100/61 Blood Pressure [Right Arm] Blood Pressure Mean 74 Blood Pressure Mean [Right Arm] Blood Pressure Position Pulse Oximetry 95 96 97 Oxygen Delivery Method Sepsis Recent Fever Within 48 Hours Sepsis New/Unexplained Change in Mental Status Sepsis Action Taken by Nursing 11/01/20 00:30 11/01/20 01:00 11/01/20 01:01 Temperature Temperature Source Pulse Rate 108 H 105 H 106 H Pulse Rate [Right Finger] Pulse Rate from SpO2 Sensor 101 H 98 H 101 H Pulse Rhythm [Right Finger] Pulse Strength [Right Finger] Respiratory Rate 19 20 23 Respiratory Effort / Characteristics Respiratory Depth Respiratory Pattern Blood Pressure 112/61 Blood Pressure [Right Arm] Blood Pressure Mean 78 Blood Pressure Mean [Right Arm] Blood Pressure Position Pulse Oximetry 96 96 95 Oxygen Delivery Method Sepsis Recent Fever Within 48 Hours Sepsis New/Unexplained Change in Mental Status Sepsis Action Taken by Nursing 11/01/20 01:30 Temperature Temperature Source Pulse Rate 93 H Pulse Rate [Right Finger] Pulse Rate from SpO2 Sensor 89 Pulse Rhythm [Right Finger] Pulse Strength [Right Finger] Respiratory Rate 19 Respiratory Effort / Characteristics Respiratory Depth Respiratory Pattern Blood Pressure Blood Pressure [Right Arm] Blood Pressure Mean Blood Pressure Mean [Right Arm] Blood Pressure Position Pulse Oximetry 94 Oxygen Delivery Method Sepsis Recent Fever Within 48 Hours Sepsis New/Unexplained Change in Mental Status Sepsis Action Taken by Nursing Laboratory Data Result diagrams: 10/31/20 23:00 10/31/20 23:00 Lab Results 10/31/20 10/31/20 10/31/20 Range/Units 23:00 23:00 23:00 WBC 3.59 L (4.8-10.8) K/uL RBC 3.94 L (4.7-6.1) M/uL Hgb 11.5 L (14.0-18.0) g/dL Hct 35.0 L (42-52) % MCV 88.8 (80-100) fL MCH 29.2 (25-34) pg MCHC 32.9 (32-36) g/dL RDW Std Deviation 58.7 H (36.4-46.3) fL RDW Coeff of Christiano 18.7 H (11.5-14.5) % Plt Count 177 (130-400) K/uL MPV 9.9 (7.4-10.4) fL Immature Gran % (Auto) 0.6 % Neut % (Auto) 86.2 % Lymph % (Auto) 5.3 % Major % (Auto) 7.0 % Eos % (Auto) 0.6 % Baso % (Auto) 0.3 % Neut # (Auto) 3.10 (1.4-6.5) K/uL Lymph # (Auto) 0.19 L (1.2-3.4) K/uL Major # (Auto) 0.25 (0.11-0.59) K/uL Eos # (Auto) 0.02 (0-0.5) K/uL Baso # (Auto) 0.01 (0-0.2) K/uL Immature Gran # (Auto) 0.02 (0.00-0.02) K/uL Absolute Nucleated RBC 0.03 H (0-0) K/uL Nucleated RBC % (auto) 0.7 % Sodium 134 L (136-145) mmol/L Potassium 3.2 L (3.5-5.1) mmol/L Chloride 100 (98-107) mmol/L Carbon Dioxide 25 (21-32) mmol/L Anion Gap 9.0 (3-11) BUN 17 (7-18) mg/dl Creatinine 0.75 (0.6-1.4) mg/dl Est Cr Clr Drug Dosing 84.3 ml/min Est GFR ( Amer) 109.2 Est GFR (Non-Af Amer) 94.3 BUN/Creatinine Ratio 22.8 H (10-20) Glucose 153 H (70-99) mg/dl Lactate (0.4-2.0) mmol/L Calcium 9.1 (8.5-10.1) mg/dl Magnesium 1.2 L (1.8-2.4) mg/dl Total Bilirubin 0.4 (0.2-1) mg/dl Direct Bilirubin 0.2 (0-0.2) mg/dl AST 17 (15-37) U/L ALT 33 (12-78) U/L Alkaline Phosphatase 254 H (45-117) U/L Troponin I 0.029 (0-0.045) ng/ml Total Protein 6.3 L (6.4-8.2) gm/dl Albumin 2.5 L (3.4-5.0) gm/dl Lipase 586 H (73-393) U/L Procalcitonin 33.82 H (0-0.5) ng/ml COVID-19 Eval Order SARS-CoV-2, RNA, NAAT (NEGATIVE) 10/31/20 10/31/20 10/31/20 Range/Units 23:30 23:30 23:40 WBC (4.8-10.8) K/uL RBC (4.7-6.1) M/uL Hgb (14.0-18.0) g/dL Hct (42-52) % MCV (80-100) fL MCH (25-34) pg MCHC (32-36) g/dL RDW Std Deviation (36.4-46.3) fL RDW Coeff of Christiano (11.5-14.5) % Plt Count (130-400) K/uL MPV (7.4-10.4) fL Immature Gran % (Auto) % Neut % (Auto) % Lymph % (Auto) % Major % (Auto) % Eos % (Auto) % Baso % (Auto) % Neut # (Auto) (1.4-6.5) K/uL Lymph # (Auto) (1.2-3.4) K/uL Major # (Auto) (0.11-0.59) K/uL Eos # (Auto) (0-0.5) K/uL Baso # (Auto) (0-0.2) K/uL Immature Gran # (Auto) (0.00-0.02) K/uL Absolute Nucleated RBC (0-0) K/uL Nucleated RBC % (auto) % Sodium (136-145) mmol/L Potassium (3.5-5.1) mmol/L Chloride (98-107) mmol/L Carbon Dioxide (21-32) mmol/L Anion Gap (3-11) BUN (7-18) mg/dl Creatinine (0.6-1.4) mg/dl Est Cr Clr Drug Dosing ml/min Est GFR ( Amer) Est GFR (Non-Af Amer) BUN/Creatinine Ratio (10-20) Glucose (70-99) mg/dl Lactate 2.6 H* (0.4-2.0) mmol/L Calcium (8.5-10.1) mg/dl Magnesium (1.8-2.4) mg/dl Total Bilirubin (0.2-1) mg/dl Direct Bilirubin (0-0.2) mg/dl AST (15-37) U/L ALT (12-78) U/L Alkaline Phosphatase (45-117) U/L Troponin I (0-0.045) ng/ml Total Protein (6.4-8.2) gm/dl Albumin (3.4-5.0) gm/dl Lipase (73-393) U/L Procalcitonin (0-0.5) ng/ml COVID-19 Eval Order Covid19 [facility] SARS-CoV-2, RNA, NAAT NEGATIVE (NEGATIVE) Administered Medications Magnesium Sulfate/Dextrose (Magnesium Sulfate / D5w) 1 gm in 100 mls @ 50 mls/hr IV Q2H HAO Stop: 11/01/20 06:55 Last Admin: 11/01/20 03:46 Dose: 50 mls/hr Documented by: [id number] Potassium Chloride/Sodium Chloride (Normal Saline W/20 Meq Kcl) 20 meq in 1,000 mls @ 100 mls/hr IV .Q10H HAO Stop: 12/01/20 03:29 Last Admin: 11/01/20 03:45 Dose: 100 mls/hr Documented by: [id number] Potassium Chloride (K Mykel / Wtr) 10 meq in 100 mls @ 100 mls/hr IV Q1H HAO Stop: 11/01/20 06:55 Last Admin: 11/01/20 03:45 Dose: 100 mls/hr Documented by: [id number] Discontinued Medications Sodium Chloride (Nss 1000ml) 2,000 mls @ 999 mls/hr IV .Q2H1M ONE Stop: 11/01/20 01:03 Last Infusion: 11/01/20 01:49 Dose: 0 mls/hr Documented by: [id number] Admin: 10/31/20 23:44 Dose: 999 mls/hr Documented by: [id number] Cefepime HCl (Maxipime) 2,000 mg in 20 mls @ 5 mls/min IV NOW STA Stop: 10/31/20 23:08 Last Admin: 10/31/20 23:44 Dose: 5 mls/min Documented by: [id number] Vancomycin HCl 1,250 mg/ (Sodium Chloride) 525 mls @ 200 mls/hr IV NOW ONE Stop: 11/01/20 01:42 Last Infusion: 11/01/20 03:02 Dose: 0 mls/hr Documented by: [id number] Admin: 10/31/20 23:54 Dose: 200 mls/hr Documented by: [id number] Magnesium Sulfate/Dextrose (Magnesium Sulfate / D5w) 1 gm in 100 mls @ 200 mls/hr IV Q30M HAO Stop: 11/01/20 01:49 Last Admin: 11/01/20 02:58 Dose: Not Given Documented by: [id number] Infusion: 11/01/20 02:32 Dose: 0 mls/hr Documented by: [id number] Admin: 11/01/20 01:04 Dose: 200 mls/hr Documented by: [id number] Sodium Chloride (Nss) 500 mls @ 100 mls/hr IV .Q5H HAO Stop: 12/01/20 01:38 Last Admin: 11/01/20 02:59 Dose: Not Given Documented by: [id number] Piperacillin Sod/Tazobactam (Sod 3.375 gm/ Dextrose) 115 mls @ 28.75 mls/hr IV Q8H HAO; Protocol Stop: 11/03/20 01:44 Last Admin: 11/01/20 02:58 Dose: Not Given Documented by: [id number] Potassium Chloride (Potassium Chloride Crtab 20 Meq Tabcr) 40 meq PO NOW STA Stop: 11/01/20 02:57 Last Admin: 11/01/20 03:48 Dose: 40 meq Documented by: [id number] Discharge Plan Visit Data Chief Complaint: Fever Stated Complaint: fever, vomit, nausea ED Provider: Sabas Foley Discharge Problem: Sepsis, Neutropenic fever, Hypomagnesemia Patient Disposition: Admitted As Inpatient Discharge Instructions Interventions: ED Discharge Assessment Last Done: 11/01/20 02:38 Discharge Problem: Sepsis Qualifiers: Sepsis type: sepsis due to unspecified organism Sepsis acute organ dysfunction status: without acute organ dysfunction Qualified Code(s): A41.9 - Sepsis, unspecified organism
[2020-10-31 23:21] LABS: Basophils # (auto) 0.01 K/uL (0-0.2); Basophils % (auto) 0.3 %; Eosinophils # (auto) 0.02 K/uL (0-0.5); Eosinophils % (auto) 0.6 %; Hemoglobin 11.5 g/dL (14.0-18.0); Immature Granulocytes # (auto) 0.02 K/uL (0.00-0.02); Immature Granulocytes % (auto) 0.6 %; Lymphocytes # (auto) 0.19 K/uL (1.2-3.4); Lymphocytes % (auto) 5.3 %; Mean Corpuscular Hemoglobin 29.2 pg (25-34); Mean Corpuscular Hgb Conc 32.9 g/dL (32-36); Mean Corpuscular Volume 88.8 fL (80-100); Mean Platelet Volume 9.9 fL (7.4-10.4); Monocytes # (auto) 0.25 K/uL (0.11-0.59); Neutrophils % (auto) 86.2 %; Nucleated RBC # (auto) 0.03 K/uL (0-0); Nucleated RBC % (auto) 0.7 %; Platelet Count 177 K/uL (130-400); RDW Coefficient of Variation 18.7 % (11.5-14.5); RDW Standard Deviation 58.7 fL (36.4-46.3); Red Blood Count 3.94 M/uL (4.7-6.1); White Blood Count 3.59 K/uL (4.8-10.8)
[2020-10-31 23:38] LABS: Albumin Level 2.5 gm/dl (3.4-5.0); BUN Creatinine Ratio 22.8 (10-20); Bilirubin Direct 0.2 mg/dl (0-0.2); Calcium 9.1 mg/dl (8.5-10.1); Creatinine Clr Calc Pharmacy 84.3 ml/min; Est GFR (African American) 109.2; Est GFR (Non-African American) 94.3; Magnesium 1.2 mg/dl (1.8-2.4); Potassium 3.2 mmol/L (3.5-5.1)
[2020-10-31 23:43] LABS: Bilirubin,Total 0.4 mg/dl (0.2-1); Total Protein 6.3 gm/dl (6.4-8.2); Troponin I 0.029 ng/ml (0-0.045)
[2020-11-01] MEDS: MAGNESIUM SULFATE / D5W 1 GM/100 ML BAG IV SCH ×4 (01:04→06:09)
[2020-11-01] MEDS ORDERED: PIPERACILL/TAZOBAC CONSULT ACTIVE PRN (01:39)
[2020-11-01] MEDS ORDERED: SODIUM CHLORIDE 0.9% 500 ML IV SCH (01:39)
--- NOTE | 2020-11-01 01:43 | History & Physical Report ---
Date of Service November 01, 2020 Assessment & Plan (1) Fever: 70-year-old male past medical history significant for hypertension, hyperlipidemia, metastatic pancreatic cancer actively undergoing chemotherapy, insulin-dependent DM2 admitted for fever in immunocompromised patient. Fever in immunocompromised patient: Patient diagnosed with metastatic pancreatic cancer in_, currently following with Dr. Infante and undergoing active chemotherapy for the last 9 weeks, with most recent treatment 1 week ago. On arrival with complaints of fever, intermittent x48 hours with Tmax of 102.0. Did not meet SIRS criteria on arrival here, as patient was without true fever. Noted to have elevated lactate and procal, as well as leukopenia without true neutropenia. ANC 3.10. UA, CXR without clear sources of infection. Blood cultures collected prior to empiric antibiotic treatment. Port site without erythema, warmth, tenderness. Patient did have CT scan with contrast today, puncture site does not appear infected and patient was having fevers prior to this imaging. We will start empiric antibiotics, Vanco/Zosyn and await blood cultures. Given elevated lactate and tachycardia with dry appearance on exam will give NSS with KCl 20 mEq at 100 cc/hr. Differential also includes fever due to chemotherapy treatment, diagnosis of exclusion if patient's infection evaluation is negative. Tylenol/ibuprofen as needed pain/fever. Hypokalemia/hypomagnesemia: On arrival with magnesium 1.2, potassium 3.2. Given 1g magnesium sulfate in ER. We will add an additional 2g magnesium sulfate, 40 PO KCl, 40 mEq K riders. Sinus tachycardia: On arrival to ER with tachycardia with regular rhythm to 130s, which decreased to 110s by time of my exam. Now 80s. Suspect due to dehydration as patient appeared dry on exam. Hypertension: Continue home losartan. Hyperlipidemia: Continue home simvastatin. DM2: At home is on Lantus 40 units subcu twice daily, metformin 1000mg twice daily. Hold Metformin while admitted, add SSI. Depression/anxiety: Continue home Zoloft. CODE STATUS: DNR/DNI FEN GI: DM2 diet; NSS with KCl 20 mEq at 100 cc/hr; KCl PO, K Riders, IV MgSulfate DVT prophylaxis: Heparin 5000 units subcu twice daily Dispo: MedSurg for IV fluids, empiric antibiotics, electrolyte repletion, to akosua it results of blood cultures (2) Immunocompromised: (3) Hypertension: (4) Hyperlipidemia: (5) Insulin dependent diabetes mellitus: (6) Pancreatic cancer: (7) Depression: History of Present Illness Chief Complaint: fever Primary Care Provider: Jesus Posada 70-year-old male past medical history significant for hypertension, hyperlipidemia, metastatic pancreatic cancer actively undergoing chemotherapy, insulin-dependent DM2 presented to ED for complaints of intermittent fever x48 hours to T-max 102.0 at home, with some associated malaise, but without shortness of breath, chest pain, nausea or vomiting, abdominal pain, recent sick contacts. In the ER was noted to have leukopenia without neutropenia, tachycardia to 130 which rapidly decreased to 110s, elevated lactate and procal, hypokalemia, and hypomagnesemia. Covid testing negative, chest x-ray negative. Allergies Allergy/AdvReac Type Severity Reaction Status Date / Time midazolam [From Versed] AdvReac Intermediate AGITATED/CO Verified 10/31/20 23:58 MBATIVE Home Medications Medication Instructions Recorded Confirmed Type calcium carbonate [Calcium 600] 600 mg PO BID 06/11/20 10/31/20 History pantoprazole 40 mg PO QAM 06/11/20 10/31/20 History polyethylene glycol 3350 [Miralax] 17 g PO DAILY PRN 06/11/20 10/31/20 History simvastatin 40 mg PO QPM 06/11/20 10/31/20 History metformin 1,000 mg tablet 1,000 mg PO BID 07/26/20 10/31/20 History Lantus Solostar U-100 Insulin 40 unit SUBCUT BID 07/27/20 10/31/20 History cyanocobalamin (vitamin B-12) 1,000 mcg PO QAM 07/27/20 10/31/20 History losartan 100 mg PO QAM 07/27/20 10/31/20 History sertraline [Zoloft] 50 mg PO QPM 07/27/20 10/31/20 History ibuprofen 600 mg PO Q6H PRN 08/01/20 10/31/20 History magnesium oxide 400 mg PO QAM 10/31/20 10/31/20 History amoxicillin-pot clavulanate 1 tab PO BID 7 Days #14 tab 11/01/20 Rx [Augmentin] Past Med/Surg History Medical History Diabetes mellitus, type 2 GERD (gastroesophageal reflux disease) Hyperlipidemia Hypertension Insomnia REASON FOR ZOLOFT Pancreatic cancer NEW DX Surgical History History of anesthesia reaction REACTION TO VERSED (EVENT WITH BILIARY TUBE PLACEMENT AT [facility])- WAS COMBATIVE AND AGITATED- NO ISSUES WITH VERSED PRIOR TO BILARY TUBE PLACEMENT ON 06/18/20 PER PATIENT) History of biliary stent insertion DRAINING INTO INTESTINAL TRACT (PROCEDURE DONE AT [facility]) History of biliary T-tube placement PORT STILL IN PLACE/NO BAG History of colonoscopy History of ERCP X 3 History of esophagogastroduodenoscopy (EGD) History of tonsillectomy and adenoidectomy Hx of vasectomy Port-A-Cath in place (08/01/20) Insertion of Mediport with Fluoroscopy Dr. Cummins 08/01/2020 Vocal cord polyp REMOVED Family History Grandmother (Maternal) Cancer kidney Grandmother (Paternal) Family history of diabetes mellitus Other No family history of adverse response to anesthesia Social History Smoking Status: Never smoker Second Hand Exposure: No; Hx Alcohol Use: No Hx Substance Use: No Preferred Language: Chilean Communication Ability: Effective Human Capital Analyst Required: No Beliefs That Will Affect Care: None marital status: Current Living Situation: Spouse current occupational status: retired How many Children do You have: 2 Feels Safe at Home: Yes Safety Concerns: Feels Safe At This Time Assistive Devices: None Physical Exam Constitutional: well developed and + thin Eyes: PERRL, conjunctivae normal, anicteric sclerae dry mucous membranes ENMT: external ear and nose normal, oropharynx normal Neck: normal visual inspection Respiratory: normal respiratory effort, lungs clear to auscultation Cardiovascular: Rate/Rhythm: regular rhythm and + tachycardic Heart Sounds: no murmur Extremities: no edema Gastrointestinal (Abdomen): normal bowel sounds, soft, nontender, no hepatosplenomegaly Musculoskeletal: no cyanosis or clubbing, extremities motor strength 5/5 Skin: no rashes, warm and dry Neurologic: AAOx3, normal speech. No tremor. Psychiatric: A+Ox3, euthymic affect Results & Data Results & Data ([facility]) Vital Signs (Past 12 Hours) Vital Signs Temp Pulse Pulse Resp BP BP Pulse Ox 10/31/20 23:00 119 H 22 123/65 94 10/31/20 22:16 37.2 C 133 H 18 115/65 96 Code Status & VTE Plan VTE Prophylaxis Plan VTE Prophylaxis will be ordered: Yes Supervising Physician Co-Signing Physician Notes Attending addendum: I have physically seen this patient, have supervised the medical residents activities, and agree with the H&P unless as otherwise noted. Assessment and Plan: Fever/immunocompromise secondary to chemotherapy- Treat as if neutropenic fever Empiric vancomycin IV and Zosyn IV Follow blood cultures NSS + KCl 20 mEq at 100 mils per hour Monitor serial CBC with differential and chemistry profile Acetaminophen 650 mg p.o. every 6 hours as needed mild pain or temperature Electrolyte disturbances/hypokalemia/hypomagnesemia- Magnesium 1.2 potassium 3.2 upon arrival. Replace with IV supplementation Repeat laboratories in a.m. Diabetes mellitus- Hold Metformin Reduce Lantus from 40 to 20 units subcu twice daily Patient Accu-Cheks before meals and at bedtime with NovoLog coverage per scale Remaining orders and notations as noted Resident Activity Tracking Resident Involvement: Resident Care Provided Care Provided: Adult Hospital Medicine (1) Fever Fever type: unspecified Qualified Code(s): R50.9 - Fever, unspecified (2) Hyperlipidemia Hyperlipidemia type: unspecified Qualified Code(s): E78.5 - Hyperlipidemia, unspecified (3) Hypertension Hypertension type: essential hypertension Qualified Code(s): I10 - Essential (primary) hypertension
[2020-11-01] MEDS ORDERED: PIPERACILLIN/TAZOBACTAM 3.375 GM in DEXTROSE 5% 100 ML IV SCH ×3 (01:45→08:00)
[2020-11-01 02:38] LABS: Appearance Urine Clear (Clear); Bilirubin Urine Negative (Negative); Blood Urine Negative (Negative); Color Urine Dark Yellow; Glucose Urine UA Negative (Negative); Ketones Urine Trace (Negative); Leukocyte Esterase Urine Negative (Negative); Nitrite Urine Negative (Negative); Protein Urine Negative (Negative); Specific Gravity Urine 1.037 (1.000-1.030); Urobilinogen Urine Negative (Negative); pH Urine 5.5 (4.5-7.5)
[2020-11-01] MEDS ORDERED: GLUCOSE 40% GEL 15 GM TUBE PO PRN (02:56)
[2020-11-01] MEDS ORDERED: ONDANSETRON INJ 2 MG/ML 2 ML VIAL IV PRN (02:56)
[2020-11-01] MEDS ORDERED: ACETAMINOPHEN 325 MG TAB PO PRN (02:56)
[2020-11-01] MEDS ORDERED: POLYETHYLENE (MIRALAX) 17 GM PACK PO PRN ×2 (02:56)
[2020-11-01] MEDS ORDERED: DEXTROSE 50% 50 ML SYRINGE IV PRN (02:56)
[2020-11-01] MEDS ORDERED: CARBOHYDRATES FOR HYPOGLYCEMIA PO PRN (02:56)
[2020-11-01] MEDS ORDERED: GLUCOSE 10 TABS/TUBE PO PRN (02:56)
[2020-11-01] MEDS ORDERED: IBUPROFEN 600 MG TAB PO PRN (02:56)
[2020-11-01] MEDS ORDERED: GLUCAGON FOR INJ 1 MG VIAL SQ PRN (02:56)
[2020-11-01] MEDS ORDERED: POTASSIUM CHLORIDE CRTAB 20 MEQ TABCR PO STA (02:56)
[2020-11-01] MEDS: POTASSIUM CHLORIDE / WTR 10 MEQ/100 ML PLCT IV SCH ×4 (03:45→07:05)
[2020-11-01] MEDS: NSS + 20MEQ KCL 20 MEQ/1,000 ML BAG IV SCH ×2 (03:45→14:44)
[2020-11-01] MEDS ORDERED: HEPARIN 100 UNIT/ML 5ML FLUSH FLUSH PRN (04:20)
--- NOTE | 2020-11-01 08:07 | XRay Report ---
XR chest 1V portable CLINICAL HISTORY: Sepsis COMPARISON STUDY: Chest CT June 12, 2020. PET/CT August 06, 2020. Chest radiograph August 01, 2020. FINDINGS: Right internal jugular Eggntw-s-Wrod is in place. Lung volumes are normal. Lungs are clear. There is no pneumothorax or pleural effusion. Cardiac size is normal. Mediastinal contours are nadia l. There is no evidence for pulmonary edema. IMPRESSION: No acute cardiopulmonary findings. ACT 112: Negative or not required by law. Electronically signed by: Doni Jeter M.D. 11/01/2020 8:06 AM
--- NOTE | 2020-11-01 08:29 | Hospitalist Progress Note ---
Date of Service November 01, 2020 Assessment & Plan Admission and Anticipated Discharge Date Admission Date: November 01, 2020 Results & Data Results & Data ([facility]) Vital Signs (Past 12 Hours) Vital Signs Temp Pulse Pulse Resp BP BP Pulse Ox 11/01/20 07:07 36.6 C 80 16 129/69 97 11/01/20 03:00 36.5 C 79 16 116/71 99 11/01/20 02:30 83 18 95 11/01/20 02:01 90 17 96 11/01/20 02:00 91 H 19 112/61 96 11/01/20 01:30 93 H 19 94 11/01/20 01:01 106 H 23 95 11/01/20 01:00 105 H 20 112/61 96 11/01/20 00:30 108 H 19 96 11/01/20 00:01 110 H 21 97 11/01/20 00:00 110 H 21 100/61 96 10/31/20 23:30 108 H 17 95 10/31/20 23:02 118 H 27 H 94 10/31/20 23:00 118 H 119 H 27 H 123/65 123/65 94 10/31/20 22:16 37.2 C 133 H 18 115/65 96
[2020-11-01] MEDS: INSULIN ASPART 100 UNITS/ML 3 ML PEN SC SCH ×2 (08:31→12:34)
[2020-11-01 08:47] LABS: Appearance Urine Clear (Clear); Bilirubin Urine Negative (Negative); Blood Urine Negative (Negative); Color Urine Yellow; Glucose Urine UA Negative (Negative); Ketones Urine Negative (Negative); Leukocyte Esterase Urine Negative (Negative); Nitrite Urine Negative (Negative); Protein Urine Negative (Negative); Specific Gravity Urine 1.009 (1.000-1.030); Urobilinogen Urine Negative (Negative)
[2020-11-01] MEDS ORDERED: HEPARIN SOD 5,000 UNIT/0.5 ML VIAL SQ SCH (09:00)
[2020-11-01] MEDS ORDERED: PANTOprazole 40 MG TAB PO SCH (09:00)
[2020-11-01] MEDS ORDERED: LOSARTAN POTASSIUM 50 MG TAB PO SCH (09:00)
[2020-11-01] MEDS ORDERED: INSULIN GLARGINE SOLOSTAR 100 UNITS/ML 3 ML PEN SQ SCH (09:00)
--- NOTE | 2020-11-01 09:44 | Pharmacy Report ---
Pharmacy Abx Dose Short Note - Date of Service November 01, 2020 - Assessment & Plan Assessment 70 year old immunocompromised male admitted with intermittent fevers x 48 hours. Patient has metastatic pancreatic cancer undergoing active chemotherapy (most recent treatment was one week ago). * ANC 3.10. Significantly elevated procalcitonin on admission; 33.8 * UA not impressive, CXR with no acute cardiopulmonary findings * Patient does have a central venous catheter in place * Given markedly elevated procal, BC pending, and unknown source of possible infection at this time, it seems reasonable to continue broad spectrum antibiotics for now. Plan Vancomycin * Loading dose: 1250 mg IV (ED) * Maintenance dose: 1250 mg (19.3 mg/kg) IV q12h * Patient meets criteria for vancomycin AUC dosing nomogram * AUC/CANDIDA is the preferred PK/PD target for vancomycin * Target AUC/CANDIDA = 400-600 * Drug level to be ordered if therapy continues beyond 48 hours Patient also on zosyn 3.375g IV q8h per extended infusion protocol Pharmacy will continue to follow and will adjust dose/frequency as necessary. Thank you.
[2020-11-01 11:28] LABS: BUN Creatinine Ratio 18.9 (10-20); Calcium 8.3 mg/dl (8.5-10.1); Creatinine Clr Calc Pharmacy 109.7 ml/min; Est GFR (African American) 120.6; Potassium 4.9 mmol/L (3.5-5.1)
[2020-11-01] MEDS ORDERED: VANCOMYCIN HCL 1,250 MG in SODIUM CHLORIDE 0.9% 250 ML IV SCH (12:00)
[2020-11-01 12:08] LABS: Basophils # (auto) 0.01 K/uL (0-0.2); Basophils % (auto) 0.2 %; Eosinophils # (auto) 0.08 K/uL (0-0.5); Eosinophils % (auto) 1.3 %; Hematocrit (blood only) 26.4 % (42-52); Hemoglobin 8.5 g/dL (14.0-18.0); Immature Granulocytes # (auto) 0.05 K/uL (0.00-0.02); Immature Granulocytes % (auto) 0.8 %; Lymphocytes # (auto) 0.54 K/uL (1.2-3.4); Lymphocytes % (auto) 8.9 %; Mean Corpuscular Hgb Conc 32.2 g/dL (32-36); Mean Corpuscular Volume 90.1 fL (80-100); Mean Platelet Volume 9.5 fL (7.4-10.4); Monocytes # (auto) 0.56 K/uL (0.11-0.59); Monocytes % (auto) 9.2 %; Neutrophils # (auto) 4.83 K/uL (1.4-6.5); Neutrophils % (auto) 79.6 %; Platelet Count 184 K/uL (130-400); RDW Coefficient of Variation 18.9 % (11.5-14.5); RDW Standard Deviation 60.3 fL (36.4-46.3); Red Blood Count 2.93 M/uL (4.7-6.1); White Blood Count 6.07 K/uL (4.8-10.8)
--- NOTE | 2020-11-01 13:27 | Discharge Summary ---
Date of Service November 01, 2020 Admission HPI Per Admitting Provider 70-year-old male past medical history significant for hypertension, hyperlipidemia, metastatic pancreatic cancer actively undergoing chemotherapy, insulin-dependent DM2 presented to ED for complaints of intermittent fever x48 hours to T-max 102.0 at home, with some associated malaise, but without shortness of breath, chest pain, nausea or vomiting, abdominal pain, recent sick contacts. In the ER was noted to have leukopenia without neutropenia, tachycardia to 130 which rapidly decreased to 110s, elevated lactate and procal, hypokalemia, and hypomagnesemia. Covid testing negative, chest x-ray negative. Admission Exam Per Admitting Provider Constitutional: well developed and + thin Eyes: PERRL, conjunctivae normal, anicteric sclerae dry mucous membranes ENMT: external ear and nose normal, oropharynx normal Neck: normal visual inspection Respiratory: normal respiratory effort, lungs clear to auscultation Cardiovascular: Rate/Rhythm: regular rhythm and + tachycardic Heart Sounds: no murmur Extremities: no edema Gastrointestinal (Abdomen): normal bowel sounds, soft, nontender, no hepatosplenomegaly Musculoskeletal: no cyanosis or clubbing, extremities motor strength 5/5 Skin: no rashes, warm and dry Neurologic: AAOx3, normal speech. No tremor. Psychiatric: A+Ox3, euthymic affect Principal Diagnosis fever in immunocompromised patient Discharge Exam Constitutional well developed and + thin Eyes PERRL, conjunctivae normal, anicteric sclerae ENMT external ear and nose normal, oropharynx normal Neck normal visual inspection Respiratory normal respiratory effort, lungs clear to auscultation Cardiovascular Rate/Rhythm: regular rate and regular rhythm Heart Sounds: no murmur Extremities: no edema Chest (Breasts) Chest: + vascular access device or port (well appearing, no erythema or tenderness surrounding ) Gastrointestinal (Abdomen) normal bowel sounds, soft, nontender, no hepatosplenomegaly Stent dressings clean and dry, no tenderness surrounding Musculoskeletal no cyanosis or clubbing, extremities motor strength 5/5 Skin no rashes, warm and dry Psychiatric A+Ox3, euthymic affect Discharge Data Allergies Allergy/AdvReac Type Severity Reaction Status Date / Time midazolam [From Versed] AdvReac Intermediate AGITATED/CO Verified 10/31/20 23:58 MBATIVE Consultations 11/01/20 00:50 ED Decision to Admit Stat Hospital Course (1) Fever: 70-year-old male past medical history significant for hypertension, hyperlipidemia, metastatic pancreatic cancer actively undergoing chemotherapy, insulin-dependent DM2 admitted for fever in immunocompromised patient. Fever in immunocompromised patient: Patient diagnosed with metastatic pancreatic cancer in_, currently following with Dr. Infante and undergoing active chemotherapy for the last 9 weeks, with most recent treatment 1 week ago. On arrival with complaints of fever, intermittent x48 hours with Tmax of 102.0. Did not meet SIRS criteria on arrival here, as patient was without true fever. Noted to have elevated lactate and procal, as well as leukopenia without true neutropenia. ANC 3.10. UA, CXR without clear sources of infection. Blood cultures collected prior to empiric antibiotic treatment - Pending, will follow up with patient and call once resulting Port site without erythema, warmth, tenderness. Patient did have CT scan with contrast today, puncture site does not appear infected and patient was having fevers prior to this imaging. Started on empiric vanco/zosyn, with improvement overnight Tylenol/ibuprofen as needed pain/fever. Patients vitals stable, no obvious signs of infection. Abdomen soft nontender, no wheeze/rales/crackles Patient given strict instructions in regards to worsening status/signs of infection Discharged on Augmentin for complete 7 day course Patient to have close follow up the following day with PCP after discharge Hypokalemia/hypomagnesemia: On arrival with magnesium 1.2, potassium 3.2. Given 1g magnesium sulfate in ER. Given additional 2g magnesium sulfate, 40 PO KCl, 40 mEq K riders. Hypertension: Continued home losartan. Hyperlipidemia: Continued home simvastatin. DM2: At home is on Lantus 40 units subcu twice daily, metformin 1000mg twice daily. Held Metformin while admitted, added SSI. Depression/anxiety: Continued home Zoloft. (2) Immunocompromised: (3) Hypertension: (4) Hyperlipidemia: (5) Insulin dependent diabetes mellitus: (6) Pancreatic cancer: (7) Depression: Total Time Total Time Spent Total Time Spent (In Minutes): >30 Discharge Plan Discharge Items Patient Disposition: Home - Self-Care Reason For Visit: FEVER IN CANCER PATIENT Discharge Diagnosis: Fever in Immunocompromised patient Activity: Per Instructions section Non-emergency contact: Primary Care Provider Call non-emergency contact if: you have any medication questions, your symptoms worsen, you have a fever and your temperature is above 101 Follow-up/Referrals: Jesus Posada [Primary Care Provider] - 11/02/20 1:00 pm Diet: Regular Addtl Attending Provider Instructions: Mr. Kang, It was our pleasure caring for you at [facility] from 10/31 - 11/01/20. You had noted prior to your admission that at home you were febrile up to 102F. During your stay while we did not note a fever, you were fairly tachycardic. Lab work that was obtained was also concerning for an infection with significantly elevated procalcitonin levels (often markers for bacterial infection). As you had only had chemotherapy on 10/23/20, this was also considered heavily as a cause for your recent fevers and chills. You were started on empiric IV antibiotics in the hospital, and the following day you had noted you were feeling much better, stronger, and ready to go home. We discussed about the concern regarding infection and felt that our coordinated plan was appropriate. See and follow the below instructions: -Please follow up with your PCP in the next day or the following Thursday11/05/20 at the latest. 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 -Please monitor your own body for signs of: -Fever and/or Chills -Shortness of breath or Cough -Abdominal Pain -Rashes or sores -Diarrhea -Difficulty or pain with urination -Pain or redness around your drain site -Pain or redness around your port -Should you develop any of the above symptoms, please call your PCP or report to the ED for reevaluation. Pending Studies at Discharge: Yes Studies:: Blood cultures Stand-Alone Forms: My [facility] People and Pages, Smoking Cessation Medications and DC Order Prescriptions: New amoxicillin-pot clavulanate [Augmentin] 875-125 mg tablet 1 tab PO BID 7 Days Qty: 14 RF: 0 Continued metformin 1,000 mg tablet 1,000 mg PO BID RF: 0 polyethylene glycol 3350 [Miralax] 17 gram Powder In Packet 17 g PO DAILY PRN (Reason: Constipation) RF: 0 simvastatin 40 mg Tablet 40 mg PO QPM RF: 0 calcium carbonate [Calcium 600] 600 mg calcium (1,500 mg) Tablet 600 mg PO BID RF: 0 pantoprazole 40 mg Tablet,Delayed Release (Dr/Ec) 40 mg PO QAM RF: 0 cyanocobalamin (vitamin B-12) 1,000 mcg Tablet 1,000 mcg PO QAM RF: 0 losartan 100 mg Tablet 100 mg PO QAM RF: 0 Lantus Solostar U-100 Insulin 100 unit/mL (3 mL) Insulin Pen 40 unit SUBCUT BID RF: 0 sertraline [Zoloft] 50 mg Tablet 50 mg PO QPM RF: 0 ibuprofen 200 mg Tablet 600 mg PO Q6H PRN (Reason: Pain) RF: 0 magnesium oxide 400 mg magnesium Tablet 400 mg PO QAM RF: 0 Discharge Orders: Discharge Order (Routine); Ordered 11/01/20 Ordered By: Asif Langley/Other Patient Handouts: Neutropenia Admission Data Admit Date/Time: 11/01/20 01:39 Attending Provider: Augie Calvo Admit Provider: Regla Grider Primary Care Provider: Jesus Posada Other Providers: Jv Dubon Other Interventions: Discharge Summary Assessment (RN) Last Done: 11/01/20 13:23 Supervising Physician Co-Signing Physician Notes I personally examined the patient and verified all connell points of history and exam, discussed case, and agree with decision making with Dr Tirado. Feels great. Very much wants to go home. No chest pain cough or pleuritic type pain or shortness of breath. No mouth or throat pain. No abdominal pain nausea vomiting or diarrhea. No dysuria. Had a little bit of back pain whenever he had the fever, but only when he had the fever and it got better. Has a little bit of paresthesia down one leg, but this has been going on for at least the last month and is unchanged. No pain redness or discharge around his port site. No abdominal pain. No pain after eating. Vitals noted, in general he is awake and alert and oriented x3 pleasant no distress. HEENT normocephalic atraumatic mucous membranes are moist, no mucosal lesions. Cardio is regular without rubs murmurs gallops, lungs are clear to auscultation bilaterally no respiratory wheezes good effort. Abdomen is soft nondistended nontender no masses organomegaly. Extremities without cyanosis clubbing or edema. Skin shows no rashes no pallor or icterus, he has no crepitus tenderness erythema or exudate around his port site. Neuro shows cranial nerves II through XII are grossly intact gross motor and sensory are intact. Mental status shows good recent and remote recall, normal mood and affect, good judgment and insight. Fever in an immunocompromised patienthe is somewhat leukopenic but not truly neutropenic. He examines completely normal, he shows no focal signs or symptoms of infection. I strongly suspect this is all reaction to chemotherapy and/or toxicity. His procalcitonin is markedly elevated, also raising suspicion that something besides infection of the foot given the dramatic elevation of it in the face of a clinical picture that looks very benign. He very much wants to go home, we discussed the risks and benefits of his situation, noting that with ongoing observation in the hospital we could have serial exams and allow for further time for cultures to grow while ongoing empiric antibiotic coverage, but also given how good he looks and examines with no focal signs or symptoms of infection, it would not be unreasonable to send him home on empiric antibiotics and close follow-up. We discussed the risks and benefits, and he would very much like to go home. "Red flags" outlined, and he agrees to immediately return if any arise, he also agrees to return if we see any growth on his blood cultures that would necessitate ongoing IV antibiotics. Under the circumstances he is safe to go home, will finish her course of empiric antibiotics. Otherwise as above. Resident Activity Tracking Resident Involvement: Resident Care Provided Care Provided: Adult [facility] Medicine
--- NOTE | 2020-11-01 18:22 | Billing Data ---
Date of Service November 01, 2020 Coding Level of Care Code D/C Day Management >30 mins
--- NOTE | 2020-11-01 19:57 | Billing Data ---
Date of Service November 01, 2020 Coding Level of Care Code 68304 Initial Inpt Care Lvl 3
[2020-11-01] MEDS ORDERED: SIMVASTATIN 40 MG TAB PO SCH (21:00)
[2020-11-01] MEDS ORDERED: SERTRALINE HCL 50 MG TABLET PO SCH (21:00)
--- NOTE | 2020-11-02 05:46 | Electrocardiogram Report ---
Test Reason : Blood Pressure : / mmHG Vent. Rate : 110 BPM Atrial Rate : 110 BPM P-R Int : 132 ms QRS Dur : 076 ms QT Int : 304 ms P-R-T Axes : 062 044 058 degrees QTc Int : 411 ms Sinus tachycardia with Premature atrial complexes Otherwise normal ECG When compared with ECG of 26-JUL-2020 14:01, Premature atrial complexes are now Present Vent. rate has increased BY 37 BPM T wave inversion no longer evident in Inferior leads Confirmed by Corona Schulte ([id number]) on 11/02/2020 5:45:39 AM Referred By: REFERRED SELF Confirmed By:Corona Schulte
== END 2020-11-01 16:13 | disposition home or self-care (01) ==
LOC: ED 22:14 → INTOOBSV 11-01 01:39 → SUATTDRO 11-01 01:39 → 3E 11-01 01:39

== ENCOUNTER 2020-11-02 08:04 | Inpatient (IN) ==
[2020-11-02] MEDS ORDERED: ONDANSETRON INJ 2 MG/ML 2 ML VIAL IV PRN (08:14)
[2020-11-02] MEDS ORDERED: ACETAMINOPHEN 325 MG TAB PO PRN (08:14)
[2020-11-02] MEDS ORDERED: POLYETHYLENE (MIRALAX) 17 GM PACK PO PRN (08:14)
[2020-11-02] MEDS ORDERED: VANCOMYCIN CONSULT ACTIVE PRN (08:14)
[2020-11-02] MEDS ORDERED: IBUPROFEN 600 MG TAB PO PRN (08:21)
[2020-11-02] MEDS ORDERED: DEXTROSE 50% 50 ML SYRINGE IV PRN (08:23)
[2020-11-02] MEDS ORDERED: GLUCAGON FOR INJ 1 MG VIAL SQ PRN (08:23)
[2020-11-02] MEDS ORDERED: GLUCOSE 40% GEL 15 GM TUBE PO PRN (08:23)
[2020-11-02] MEDS ORDERED: GLUCOSE 10 TABS/TUBE PO PRN (08:23)
[2020-11-02] MEDS ORDERED: CARBOHYDRATES FOR HYPOGLYCEMIA PO PRN (08:23)
--- NOTE | 2020-11-02 08:27 | History & Physical Report ---
Date of Service November 02, 2020 Assessment & Plan (1) Gram-positive cocci bacteremia: Fady is a 70 year old man with past medical history significant for pancreatic cancer who presented with a fever following chemotherapy and now has gram positive bacteremia Gram positive bacteremia in setting of immunocompromise REadmitted patient, initial CBC showing increase in ANC, not neutropenic though still likey immunocompromised No clear source, ID consulted for guidance on whether we can keep port in place or whether MARIA ELENA might be indicated to look for possible vegetations Swollen joint in right ankle does not appear septic but will monitor closely For now will get repeat cultures with one from port Resumed vancomycin TTE ordered, normal no sign of vegetations. Will continue to monitor vitals and await speciation and sensitivity, will likely need multiple weeks of IV antibiotics Fortunately patient already has home health and a port so should be able to accommodate outpatient IV antibiotics fairly easily. Pancreatic Cancer Treating with gemcitibine and abraxane neuadjuvantly to see if cancer can be resectable Currently in week 9 of therapy last administered about one week ago Will need close follow up with oncology after this to determine his option s and prognosis and decide how long to delay further therapy Anemia Differential including GI bleed, chemotherapy induced or anemia of chronic disea se Hemoglobin is 7.9 today down from baseline around 11, on dicharge yesterday was 8.5 11 on initial presentation but likely hemoconcentrated Will check hemoccult today and continue to monitor for now Hypertension: Continued home losartan as patient is normotensive and not septic Hyperlipidemia: Continued home simvastatin. DM2: At home is on Lantus 40 units subcu twice daily Held Metformin while admitted, cut lantus dose in half and added SSI. Depression/anxiety: Continued home Zoloft. DVT PPx: Lovenox F/E/N: DMII diet Dispo: Admit for IV vanc, home with IV antibiotics pending speciation and sensitivities DNR/DNI (2) Pancreatic cancer: (3) Depression: (4) Hypomagnesemia: (5) Immunocompromised: (6) Fever: History of Present Illness Chief Complaint: Gram Positive Bacteremia Primary Care Provider: Jesus Posada Fady Kang is a 70 year old man with metastatic pancreatic cancer who presented yesterday morning for fever after chemotherapy. See yesterdays H and P below. 70-year-old male past medical history significant for hypertension, hyperlipidemia, metastatic pancreatic cancer actively undergoing chemotherapy, insulin-dependent DM2 presented to ED for complaints of intermittent fever x48 hours to T-max 102.0 at home, with some associated malaise, but without shortness of breath, chest pain, nausea or vomiting, abdominal pain, recent sick contacts. In the ER was noted to have leukopenia without neutropenia, tachycardia to 130 which rapidly decreased to 110s, elevated lactate and procal, hypokalemia, and hypomagnesemia. Covid testing negative, chest x-ray negative. Patient had blood cultures drawn, received IV vancomycin and remained asymptomatic. Patient was desiring to return home and spend time with his as he had no symptoms. We decided to let him go home on PO augmentin under the condition that should he develop symptoms or blood culture were to come back positive he would return to care to be direct admitted. He has continued to feel in his usual state of health unfortunately both vials of his blood culture have come back for gram positive cocci in chains. We direct admitted him to med surg. He has no new symptoms at present but on more thorough questioning does admit that he's had a stiff swollen ankle for the last week or so but it is not painful. No other joints bothering him. Allergies Allergy/AdvReac Type Severity Reaction Status Date / Time midazolam [From Versed] AdvReac Intermediate AGITATED/CO Verified 10/31/20 23:58 MBATIVE Home Medications Medication Instructions Recorded Confirmed Type calcium carbonate [Calcium 600] 600 mg PO BID 06/11/20 10/31/20 History pantoprazole 40 mg PO QAM 06/11/20 10/31/20 History polyethylene glycol 3350 [Miralax] 17 g PO DAILY PRN 06/11/20 10/31/20 History simvastatin 40 mg PO QPM 06/11/20 10/31/20 History metformin 1,000 mg tablet 1,000 mg PO BID 07/26/20 10/31/20 History Lantus Solostar U-100 Insulin 40 unit SUBCUT BID 07/27/20 10/31/20 History cyanocobalamin (vitamin B-12) 1,000 mcg PO QAM 07/27/20 10/31/20 History losartan 100 mg PO QAM 07/27/20 10/31/20 History sertraline [Zoloft] 50 mg PO QPM 07/27/20 10/31/20 History ibuprofen 600 mg PO Q6H PRN 08/01/20 10/31/20 History magnesium oxide 400 mg PO QAM 10/31/20 10/31/20 History amoxicillin-pot clavulanate 1 tab PO BID 7 Days #14 tab 11/01/20 Rx [Augmentin] Past Med/Surg History Medical History (Updated 11/02/20 @ 17:50 by Shreyas Regalado MD) Diabetes mellitus, type 2 GERD (gastroesophageal reflux disease) Hyperlipidemia Hypertension Insomnia REASON FOR ZOLOFT Pancreatic cancer NEW DX Surgical History History of anesthesia reaction REACTION TO VERSED (EVENT WITH BILIARY TUBE PLACEMENT AT [facility])- WAS COMBATIVE AND AGITATED- NO ISSUES WITH VERSED PRIOR TO BILARY TUBE PLACEMENT ON 06/18/20 PER PATIENT) History of biliary stent insertion DRAINING INTO INTESTINAL TRACT (PROCEDURE DONE AT [facility]) History of biliary T-tube placement PORT STILL IN PLACE/NO BAG History of colonoscopy History of ERCP X 3 History of esophagogastroduodenoscopy (EGD) History of tonsillectomy and adenoidectomy Hx of vasectomy Port-A-Cath in place (08/01/20) Insertion of Mediport with Fluoroscopy Dr. Cummins 08/01/2020 Vocal cord polyp REMOVED Family History Grandmother (Maternal) Cancer kidney Grandmother (Paternal) Family history of diabetes mellitus Other No family history of adverse response to anesthesia Social History Smoking Status: Never smoker Second Hand Exposure: No; Hx Alcohol Use: No Hx Substance Use: No Preferred Language: Kittitian Communication Ability: Effective Mine Foreman Required: No Beliefs That Will Affect Care: None marital status: Current Living Situation: Spouse current occupational status: retired How many Children do You have: 2 Other Information That Helps Us Care for You: No Feels Safe at Home: Yes Safety Concerns: Feels Safe At This Time Assistive Devices: None Review of Systems Review of Systems: All systems reviewed & are unremarkable except as noted in HPI & below Physical Exam Physical Exam: Constitutional: Frail appearing 70 year old man resting comfortably in bed in no acute distress, calm cooperative and easily conversive Eyes: PERRLA, EOMMI bilaterally ENMT: NAD Respiratory: Regular rate, no accessory muscle use, no increased work of breathing, lung sounds vesicular in all lung santiago Cardiovascular: Peripheral pulses intact and equal bilateral uppper and lower extremities, no murmurs rubs skips or gallops regular rate and rhythm No lower limb edema GI: Abdomen soft non tender Skin: Warm dry and well perfused MSK: Decreased plantar flexion and dorsiflexion at ankle joint on right side, slightly warmer to touch and slightly more swollen, ligamentously intact non tender Code Status & VTE Plan VTE Prophylaxis Plan VTE Prophylaxis will be ordered: Yes Supervising Physician Co-Signing Physician Notes I personally examined the patient and verified all connell points of history and exam, discussed case, and agree with decision making with Dr Regalado. Continues to feel fine. On very directed questioning he is a little bit of a numbness type feeling to his right ankle and is a little bit swollen but there is been going on for probably at least a week. Is not red is not hot is nontender. He has no other new symptoms. The back pain he had with his fever the other day has not come back and did not persist. Generally continues to feel fine. He was understanding of being called back to the hospital however. Vitals noted, in general he is awake alert oriented pleasant no distress. HEENT normocephalic atraumatic mucous membranes moist. Breathing unlabored no accessory muscle use good effort. Skin shows no rashes no pallor or icterus. Neuro shows no focal neuro deficits. Musculoskeletal his right ankle is very mildly swollen, tried to relieve and distinguish if it is a small joint effusion versus just soft tissue swelling. Is not hot it is not tender. There is no crepitus. He shows no other rashes. No other acute findings. Labsmost notably his blood cultures from October 31 did show gram-positive cocci in chains, blood cultures from today are still pending. The cultures from the third also still have not been fully speciated with identification and sensitivities. Gram-positive bacteremiahe was on vancomycin through yesterday. After discussion of risks and benefits, with culture still pending and no clear source of infection, he opted to go home yesterday on Augmentin. He is now back today and back on vancomycin. Repeat cultures are pending. Sources of "fall out" from the infection of concern would be endocarditis (echo ordered and pending), port infection (1 set of today's cultures were drawn through the port, ID input pending, exams are reassuring), or bone and joint (outside of a very nondescript very mildly swollen ankle, he shows no other signs or symptoms of septic arthritis or osteomyelitis). Await above, continue vancomycin pending sensitivities, await follow-up cultures. Discussed overall idea of the plan. Answered all questions to the best my ability. DVT prophylaxis with Lovenox Otherwise as above Resident Activity Tracking Resident Involvement: Resident Care Provided Care Provided: Adult Hospital Medicine (1) Fever Fever type: unspecified Qualified Code(s): R50.9 - Fever, unspecified
[2020-11-02] MEDS ORDERED: VANCOMYCIN HCL 1,250 MG in SODIUM CHLORIDE 0.9% 500 ML IV SCH (08:30)
[2020-11-02] MEDS ORDERED: PATIENT'S HEIGHT AND/OR WEIGHT NEEDED SCH (10:45)
--- NOTE | 2020-11-02 10:57 | Pharmacy Report ---
Pharmacy Abx Dose Short Note - Date of Service November 02, 2020 - Assessment & Plan Assessment 70 year old immunocompromised male previously admitted 10/31-11/01 with intermittent fevers x 48 hours. He is undergoing active chemotherapy for the last 9 weeks. UA, CXR without clear source of infection on last admission. Port site without erythema. Discharged yesterday on augmentin to complete 7 day course and plan was to follow up on blood culture results once discharged. Appears blood cultures now positive from last admission and patient is direct admit. Blood cultures with Gm+ cocci in chains. Started on vancomycin for coverage. Plan Vancomycin * Last vancomycin dose was 1250 mg (~19 mg/kg/dose) yesterday around ~1200 * Now close to 24 hrs after last dose, estimated vancomycin level likely <5 mcg/ml. Plan to reload patient once admitted today * Will give vancomycin 1500 mg x 1 (~23 mg/kg/dose) * Then, will start vancomycin 1 gm iv q 8 hr to achieve estimated trough ~15-20 mcg/ml for bacteremia - dosing based upon vancomycin AUC nomogram * Plan to order trough prior to the 1200 dose on 11/03 to ensure therapeutic. Note, this will be before steady state however due to bacteremia wish to ensure level not subtherapeutic Pharmacy will continue to follow and will adjust dose/frequency as necessary. Thank you.
[2020-11-02] MEDS ORDERED: VANCOMYCIN HCL 1,500 MG in SODIUM CHLORIDE 0.9% 500 ML IV ONE (11:30)
[2020-11-02 12:00] LABS: Basophils # (auto) 0.01 K/uL (0-0.2); Basophils % (auto) 0.1 %; Eosinophils # (auto) 0.04 K/uL (0-0.5); Eosinophils % (auto) 0.4 %; Hematocrit (blood only) 24.4 % (42-52); Hemoglobin 7.9 g/dL (14.0-18.0); Immature Granulocytes # (auto) 0.02 K/uL (0.00-0.02); Immature Granulocytes % (auto) 0.2 %; Lymphocytes # (auto) 0.77 K/uL (1.2-3.4); Lymphocytes % (auto) 8.3 %; Mean Corpuscular Hemoglobin 28.3 pg (25-34); Mean Corpuscular Hgb Conc 32.4 g/dL (32-36); Mean Corpuscular Volume 87.5 fL (80-100); Mean Platelet Volume 9.7 fL (7.4-10.4); Monocytes # (auto) 1.83 K/uL (0.11-0.59); Monocytes % (auto) 19.6 %; Neutrophils # (auto) 6.65 K/uL (1.4-6.5); Neutrophils % (auto) 71.4 %; Platelet Count 217 K/uL (130-400); RDW Coefficient of Variation 18.3 % (11.5-14.5); RDW Standard Deviation 57.8 fL (36.4-46.3); Red Blood Count 2.79 M/uL (4.7-6.1); White Blood Count 9.32 K/uL (4.8-10.8)
[2020-11-02] MEDS: CYANOCOBALAMIN 500 MCG TABLET (VITAMIN B-12) PO SCH (12:00)
[2020-11-02] MEDS: MAGNESIUM OXIDE 400 MG TAB PO SCH (12:00)
[2020-11-02] MEDS: PANTOprazole 40 MG TAB PO SCH ×2 (12:00→12:15)
[2020-11-02] MEDS: CALCIUM 600MG + VIT D 400 IU TAB PO SCH ×3 (12:00→20:46)
[2020-11-02] MEDS: ENOXAPARIN INJ 40 MG/0.4 ML SYR SQ SCH (12:01)
[2020-11-02 12:09] LABS: Albumin Globulin Ratio 0.6 (0.9-2); Albumin Level 2.3 gm/dl (3.4-5.0); BUN Creatinine Ratio 19.9 (10-20); Bilirubin,Total 0.6 mg/dl (0.2-1); Calcium 8.4 mg/dl (8.5-10.1); Creatinine Clr Calc Pharmacy 105.9 ml/min; Est GFR (African American) 119.7; Est GFR (Non-African American) 103.3; Globulin 3.8 gm/dl (2.5-4.0); Potassium 3.9 mmol/L (3.5-5.1); Total Protein 6.1 gm/dl (6.4-8.2)
[2020-11-02 12:19] LABS: RBC Morphology Unremarkable
[2020-11-02] MEDS: INSULIN ASPART 100 UNITS/ML 3 ML PEN SC SCH ×3 (12:51→22:15)
[2020-11-02] MEDS: INSULIN GLARGINE SOLOSTAR 100 UNITS/ML 3 ML PEN SQ SCH ×2 (12:52→22:20)
--- NOTE | 2020-11-02 16:43 | XCELERA ---
[id number]
[2020-11-02] MEDS: HEPARIN 100 UNIT/ML 5ML FLUSH FLUSH PRN (16:48)
--- NOTE | 2020-11-02 17:28 | XRay Report ---
XR chest 2V PA/lateral HISTORY: 70 years-old Male SEPSIS acute sepsis COMPARISON: Chest radiograph 10/31/2020, PET CT 08/06/2020 TECHNIQUE: PA and lateral views of the chest FINDINGS: Cardiomediastinal and hilar silhouettes are within normal limits. There is no pneumothorax, pleural e ffusion, airspace consolidation or overt pulmonary edema. Right IJ Ueflfd-z-[id number] catheter is unchange d. Degenerative changes of the shoulders and spine. Bones appear grossly intact. IMPRESSION: No acute process. ACT 112: Negative or not required by law. The above report was generated using voice recognition software. It may contain grammatical, syntax o r spelling errors. Electronically signed by: Luis Cleveland M.D. 11/02/2020 5:26 PM
[2020-11-02] MEDS ORDERED: METOPROLOL TARTRATE 1 MG/ML VIAL IV PRN (18:15)
[2020-11-02] MEDS: SERTRALINE HCL 50 MG TABLET PO SCH (20:46)
[2020-11-02] MEDS: SIMVASTATIN 40 MG TAB PO SCH (20:46)
[2020-11-02] MEDS: VANCOMYCIN HCL 1,000 MG in SODIUM CHLORIDE 0.9% 250 ML IV SCH (20:53)
[2020-11-02] MEDS ORDERED: SODIUM CHLORIDE 0.9% 1000ML 500 ML IV ONE ×2 (22:48→23:49)
[2020-11-03] MEDS: VANCOMYCIN HCL 1,000 MG in SODIUM CHLORIDE 0.9% 250 ML IV SCH ×3 (03:57→20:00)
[2020-11-03] MEDS: MAGNESIUM OXIDE 400 MG TAB PO SCH (08:12)
[2020-11-03] MEDS: PANTOprazole 40 MG TAB PO SCH (08:14)
[2020-11-03] MEDS: CALCIUM 600MG + VIT D 400 IU TAB PO SCH ×2 (08:15→20:34)
[2020-11-03] MEDS: CYANOCOBALAMIN 500 MCG TABLET (VITAMIN B-12) PO SCH (08:15)
[2020-11-03] MEDS: INSULIN ASPART 100 UNITS/ML 3 ML PEN SC SCH ×4 (08:58→20:36)
[2020-11-03] MEDS: INSULIN GLARGINE SOLOSTAR 100 UNITS/ML 3 ML PEN SQ SCH ×2 (08:59→20:36)
[2020-11-03] MEDS ORDERED: OPTIRAY 320 100ml IV ONE (09:28)
--- NOTE | 2020-11-03 10:07 | CT Scan Report ---
ABDOMEN AND PELVIS CT WITH IV CONTRAST CT DOSE: 310.94 mGy.cm HISTORY: Pancreatic cancer. Liver metastases and possible abscess TECHNIQUE: Multiaxial CT images of the abdomen and pelvis were performed following the use of intrave nous contrast. A dose lowering technique was utilized adhering to the principles of ALARA. COMPARISON STUDY: Abdomen and pelvis CT 06/11/2020. FINDINGS: The lung bases are clear. No pneumoperitoneum. No pneumatosis. No suspicious lytic or blast ic osseous lesions. The adrenal glands and kidneys are unremarkable. No hydronephrosis. Normal calibe r abdominal aorta. There is a left circumaortic renal vein. Trace pelvic free fluid. The bladder is u nremarkable. The prostate gland remains mildly enlarged. Moderate well-formed stool seen throughout t he colon. No evidence for bowel obstruction. No evidence for acute appendicitis. Right-sided external biliary stent is in good position. This terminates within the third portion of the duodenum. Small a mount of pneumobilia is present. The mild intrahepatic bile duct dilatation has improved. There is mo derate focal narrowing of the distal main portal vein. This has progressed in the interval. No eviden ce for portal vein thrombosis. The splenic vein is patent. There is a new 1 cm hypodense lesion withi n the splenic dome on image 29. There are proximally 5-10 new scattered irregular hypodense lesions w ithin the liver. Dominant lesion within the quadrate lobe measures approximately 3 cm. This demonstra justo mild peripheral enhancement. Multiple gallstones are present. There is mild enhancement and thick ening within the common bile duct. Persistent dilatation of the proximal to mid main pancreatic duct with atrophy of the pancreatic tail. This remains unchanged. The pancreatic head mass is again noted. There is now a multiloculated peripherally enhancing fluid collection at the pancreatic head/neck. T here is mild inflammatory change surrounding the pancreatic head. This has increased in size. This me asures approximately 4.4 x 4.2 cm. IMPRESSION: 1. Increase in size in the pancreatic head mass/abnormality which now contains a multiloculated hypod ense lesion. The total size of this pancreatic head lesion/mass measures 4.4 x 4.2 cm. There is mild surrounding inflammatory change. This could represent a necrotic hypodense mass or abscess. 2. There are between 5 and 10 new scattered irregular peripheral enhancing hypodense lesions within t he liver measuring up to 3 cm. These could also represent abscesses or necrotic metastatic disease. 3. There is an indwelling percutaneous biliary stent which appears in good position. This results in decompression of the biliary system. 4. Mild enhancement of the common bile duct raising the possibility of an ascending cholangitis. 5. Moderate narrowing of the distal main portal vein likely secondary to mass effect from the pancrea tic head abnormality. No evidence for portal vein thrombosis. 6. Cholelithiasis. 7. There is a new 1 cm indeterminate hypodense lesion within the splenic dome. 8. Trace pelvic free fluid. ACT 112: Negative or not required by law. Electronically signed by: Norman Li M.D. 11/03/2020 10:05 AM
--- NOTE | 2020-11-03 11:27 | Hospitalist Progress Note ---
Date of Service November 03, 2020 Assessment & Plan (1) Gram-positive cocci bacteremia: Fady is a 70 year old man with past medical history significant for pancreatic cancer who presented with a fever following chemotherapy and now has gram positive bacteremia Gram positive bacteremia in setting of immunocompromise Gram positive cocci in chains with 2/2 cultures positive Readmitted patient, initial CBC showing increase in ANC, not neutropenic though still likely immunocompromised No clear source, ID consulted for guidance on whether we can keep port in place or whether MARIA ELENA might be indicated to look for possible vegetations Still awaiting initial consultation and recommendations though they have seen patient Swollen joint in right ankle does not appear septic but will monitor closely Repeat cultures drawn, one from port with NGTD awaiting 48 hour final results tomorrow. Continuing vancomycin until speciation/sensitivities come back TTE ordered, normal no sign of vegetations. Awaiting ID guidance on whether we would need to get an MARIA ELENA to rule out in fective endocarditis in setting of gram positive bacteremia. Will continue to monitor vitals and await speciation and sensitivities, will likely need multiple weeks of IV antibiotics Pancreatic Cancer Treating with gemcitabine and Abraxane neoadjuvantly to see if cancer can be resectable Currently in week 9 of therapy last administered about one week ago Unfortunately the cancer has shown clear progression with new and enlarging liver metastasis despite chemotherapy At this time patient is more interested in making the most of the time he does have left rather than trying to prolong life with any further chemotherapy. Since patient is not desiring further chemotherapy treatment would likely benefit from removal of port as this may be the source of his infection. Anemia Differential including GI bleed, chemotherapy induced or anemia of chronic disease Hemoglobin is 7.9 on admission down from baseline around 11, on discharge was 8.5 11 on initial presentation but likely hemoconcentrated Will check hemoccult today and continue to monitor for now Hypertension: Continued home losartan as patient is normotensive and not septic Hyperlipidemia: Continued home simvastatin. DM2: At home is on Lantus 40 units subcu twice daily Held Metformin while admitted, cut lantus dose in half and added SSI. Depression/anxiety: Continued home Zoloft. DVT PPx: Lovenox F/E/N: DMII diet Dispo: Admit for IV vanc, home with IV antibiotics pending speciation and sensitivities DNR/DNI (2) Pancreatic cancer: (3) Depression: (4) Hypomagnesemia: (5) Immunocompromised: (6) Fever: Admission and Anticipated Discharge Date Admission Date: November 02, 2020 Supervising Physician Co-Signing Physician Notes I personally examined the patient and verified all connell points of history and exam, discussed case, and agree with decision making with Dr Regalado. feeling alright. awaiting furhter culture growth. thinks he'll probably forego further treatment. Vitals noted, in general he is awake alert oriented pleasant no distress. HEENT normocephalic atraumatic mucous membranes moist. Breathing unlabored no accessory muscle use good effort. Skin shows no rashes no pallor or icterus. Neuro shows no focal neuro deficits. cx still pending speciation, new cx ngtd Gram-positive bacteremiacontinue vanco pending ID&S of current cultures. echo no veg, consider MARIA ELENA. consider removal of port - for now awaiting his decision on further chemotherapy or not. If he opts for no chemotherapy then it is a fairly easy answer to remove the port. If he decides that he still wants some sort of ongoing treatment, then it may be reasonable to try to salvage the port to minimize procedures he has to undergo in the short time he has left. DVT prophylaxis with Lovenox Otherwise as above Subjective Mr. Kang had chills and felt unwell for about an hour last night which he tells me has been going on for about a week. Patient does not have any complaints at present and feels back to his usual state of health. Reviewed [facility] with him and talked to his about it. They have not had much time to process the news that despite chemotherapy the cancer has progressed to his liver but they are in agreement that they want to focus on quality not quantity of life at this point and further rounds of chemotherapy he does not see as consistent with these wishes. He is very strong in his ron and feels at peace with dying when his time comes. 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 He tells me that he is very forgetful and would like me to call his to keep her posted on everything. at home also with cancer. Review of Systems Review of Systems: All systems reviewed & are unremarkable except as noted in HPI & below Physical Exam Physical Exam: Constitutional: Frail appearing 70 year old man resting comfortably in bed in no acute distress, calm cooperative and easily conversive Eyes: TYRESE EOMMI bilaterally ENMT: NAD Respiratory: Regular rate, no accessory muscle use, no increased work of breathing, lung sounds vesicular in all lung santiago Cardiovascular: Peripheral pulses intact and equal bilateral uppper and lower extremities, no murmurs rubs skips or gallops regular rate and rhythm No lower limb edema GI: Abdomen soft non tender Skin: Warm dry and well perfused MSK: Decreased plantar flexion and dorsiflexion at ankle joint on right side, slightly warmer to touch and slightly more swollen, ligamentously intact non tender no change from yesterday Results & Data Results & Data ([facility]) Vital Signs (Past 12 Hours) Vital Signs Temp Pulse Resp BP Pulse Ox 11/03/20 07:12 36.6 C 69 16 134/69 96 11/03/20 00:49 37.4 C 83 18 100/57 L 96 Resident Activity Tracking Resident Involvement: Resident Care Provided Care Provided: Adult Hospital Medicine (1) Fever Fever type: unspecified Qualified Code(s): R50.9 - Fever, unspecified
[2020-11-03] MEDS ORDERED: VANCOMYCIN TROUGH ONE (11:30)
[2020-11-03 11:50] LABS: Creatinine Clr Calc Pharmacy 117.4 ml/min; Est GFR (Non-African American) 107.9
--- NOTE | 2020-11-03 12:25 | Pharmacy Report ---
Pharmacy Abx Dose Short Note - Date of Service November 03, 2020 - Assessment & Plan Assessment 70 year old M receiving Vancomycin for treatment of bacteremia Day # 4 of antimicrobial therapy. No change in renal function. Plan Patient meets criteria for vancomycin AUC dosing nomogram AUC/CANDIDA is the preferred PK/PD target for vancomycin * Target AUC/CANDIDA = 400-600 * Trough level of 13.9 mcg/mL (prior to steady state) is predicted to achieve target AUC/CANDIDA * AUC guided dosing is effective and associated with decreased risk of nephrotoxicity * Continue dose of 1000 mg IV every 8 hours * Goal trough level for bacteremia : 15 to 20 mcg/mL * Trough level ordered for: 11/04/20 @1130 Pharmacy will continue to follow and will adjust dose/frequency as necessary. Thank you.
[2020-11-03] MEDS: ENOXAPARIN INJ 40 MG/0.4 ML SYR SQ SCH (12:44)
[2020-11-03] MEDS: POLYETHYLENE (MIRALAX) 17 GM PACK PO SCH (15:42)
[2020-11-03 19:05] LABS: Basophils # (auto) 0.02 K/uL (0-0.2); Basophils % (auto) 0.2 %; Eosinophils # (auto) 0.13 K/uL (0-0.5); Eosinophils % (auto) 1.3 %; Hematocrit (blood only) 24.3 % (42-52); Hemoglobin 7.8 g/dL (14.0-18.0); Immature Granulocytes # (auto) 0.03 K/uL (0.00-0.02); Immature Granulocytes % (auto) 0.3 %; Lymphocytes # (auto) 1.17 K/uL (1.2-3.4); Lymphocytes % (auto) 11.5 %; Mean Corpuscular Hemoglobin 28.8 pg (25-34); Mean Corpuscular Hgb Conc 32.1 g/dL (32-36); Mean Corpuscular Volume 89.7 fL (80-100); Mean Platelet Volume 10.2 fL (7.4-10.4); Monocytes % (auto) 12.7 %; Neutrophils # (auto) 7.56 K/uL (1.4-6.5); Platelet Count 179 K/uL (130-400); RDW Coefficient of Variation 18.5 % (11.5-14.5); RDW Standard Deviation 58.9 fL (36.4-46.3); Red Blood Count 2.71 M/uL (4.7-6.1); White Blood Count 10.21 K/uL (4.8-10.8)
--- NOTE | 2020-11-03 19:25 | Billing Data ---
Date of Service November 03, 2020 Coding Level of Care Code 96545 Subseq Hosp Care Lvl 3
[2020-11-03 19:41] LABS: Polychromasia 1+
[2020-11-03] MEDS: SIMVASTATIN 40 MG TAB PO SCH (20:34)
[2020-11-03] MEDS: SERTRALINE HCL 50 MG TABLET PO SCH (20:34)
[2020-11-03] MEDS: HEPARIN 100 UNIT/ML 5ML FLUSH FLUSH PRN (22:02)
[2020-11-04] MEDS: VANCOMYCIN HCL 1,000 MG in SODIUM CHLORIDE 0.9% 250 ML IV SCH ×3 (04:59→20:11)
[2020-11-04 06:13] LABS: Hematocrit (blood only) 22.4 % (42-52); Hemoglobin 7.3 g/dL (14.0-18.0); Mean Corpuscular Hemoglobin 28.7 pg (25-34); Mean Corpuscular Hgb Conc 32.6 g/dL (32-36); Mean Corpuscular Volume 88.2 fL (80-100); Mean Platelet Volume 10.3 fL (7.4-10.4); Platelet Count 181 K/uL (130-400); RDW Coefficient of Variation 18.3 % (11.5-14.5); RDW Standard Deviation 57.9 fL (36.4-46.3); Red Blood Count 2.54 M/uL (4.7-6.1); White Blood Count 9.12 K/uL (4.8-10.8)
[2020-11-04] MEDS: HEPARIN 100 UNIT/ML 5ML FLUSH FLUSH PRN ×2 (06:44→22:02)
[2020-11-04 06:45] LABS: BUN Creatinine Ratio 16.4 (10-20); Calcium 8.3 mg/dl (8.5-10.1); Creatinine Clr Calc Pharmacy 137.8 ml/min; Est GFR (African American) 133.6; Est GFR (Non-African American) 115.2; Magnesium 1.6 mg/dl (1.8-2.4); Potassium 3.3 mmol/L (3.5-5.1)
[2020-11-04] MEDS: INSULIN GLARGINE SOLOSTAR 100 UNITS/ML 3 ML PEN SQ SCH ×2 (09:10→21:24)
[2020-11-04] MEDS: INSULIN ASPART 100 UNITS/ML 3 ML PEN SC SCH ×4 (09:11→21:23)
[2020-11-04] MEDS: MAGNESIUM SULFATE / D5W 1 GM/100 ML BAG IV SCH ×2 (09:19→11:23)
[2020-11-04] MEDS: POTASSIUM CHLORIDE 10 MEQ TABCR PO SCH ×2 (09:33→20:09)
[2020-11-04] MEDS: POLYETHYLENE (MIRALAX) 17 GM PACK PO SCH (09:34)
[2020-11-04] MEDS: CYANOCOBALAMIN 500 MCG TABLET (VITAMIN B-12) PO SCH (09:41)
[2020-11-04] MEDS: CALCIUM 600MG + VIT D 400 IU TAB PO SCH ×2 (09:42→20:10)
[2020-11-04] MEDS: PANTOprazole 40 MG TAB PO SCH (09:42)
[2020-11-04] MEDS: MAGNESIUM OXIDE 400 MG TAB PO SCH (09:43)
[2020-11-04] MEDS: ENOXAPARIN INJ 40 MG/0.4 ML SYR SQ SCH (12:58)
--- NOTE | 2020-11-04 13:13 | Pharmacy Report ---
Pharmacy Abx Dose Short Note - Date of Service November 04, 2020 - Assessment & Plan Assessment 70 year old M receiving Vancomycin for treatment of gram positive bacteremia. Day # 5 of antimicrobial therapy. Blood cultures from 2/3 not yet finalized. Blood cultures from 2/5 have NGTD. Plan Vancomycin * Dosing based on AUC Nomogram. * Trough level of 15.3 mcg/mL is therapeutic and vanc is at steady state. * Continue dose of 1000 mg IV every 8 hours * Goal trough level : 15 to 20 mcg/mL * No further levels ordered unless therapy extended or renal function changes. Pharmacy will continue to follow and will adjust dose/frequency as necessary. Thank you.
--- NOTE | 2020-11-04 17:58 | Hospitalist Progress Note ---
Date of Service November 04, 2020 Assessment & Plan (1) Gram-positive cocci bacteremia: Fady is a 70 year old man with past medical history significant for pancreatic cancer who presented with a fever following chemotherapy and now has gram positive bacteremia Gram positive bacteremia in setting of immunocompromise Gram positive cocci in chains with 2/2 cultures positive Readmitted patient, initial CBC showing increase in ANC, not neutropenic though still likely immunocompromised No clear source, ID consulted for guidance on whether we can keep port in place or whether MARIA ELENA might be indicated to look for possible vegetations Still awaiting initial consultation and recommendations though they have seen patient Swollen joint in right ankle does not appear septic but will monitor closely Repeat cultures drawn, one from port with NGTD awaiting 48 hour final results tomorrow. Continuing vancomycin until speciation/sensitivities come back TTE ordered, normal no sign of vegetations. Discussed with lab, bacteria is beta hemolytic streptococcus but speciation and sensitivities are delayed because it is very slow growing. Awaiting ID guidance on whether we would need to get an MARIA ELENA to rule out infective endocarditis in setting of gram positive bacteremia. Will continue to monitor vitals and await speciation and sensitivities, will likely need multiple weeks of IV antibiotics Pancreatic Cancer Treating with gemcitabine and Abraxane neoadjuvantly to see if cancer can be resectable Currently in week 9 of therapy last administered about one week ago Unfortunately the cancer has shown clear progression with new and enlarging liver metastasis despite chemotherapy At this time patient is more interested in making the most of the time he does have left rather than trying to prolong life with any further chemotherapy. Since patient is not desiring further chemotherapy treatment would likely benefit from removal of port as this may be the source of his infection. Anemia Differential including GI bleed, chemotherapy induced or anemia of chronic disease Hemoglobin is 7.9 on admission down from baseline around 11, on discharge was 8.5 11 on initial presentation but likely hemoconcentrated 7.3 today Hemoccult negative Continue to trend hemoglobin and transfuse if less than 7 Hypertension: Continued home losartan as patient is normotensive and not septic Hyperlipidemia: Continued home simvastatin. DM2: At home is on Lantus 40 units subcu twice daily Held Metformin while admitted, cut lantus dose in half and added SSI. Depression/anxiety: Continued home Zoloft. DVT PPx: Lovenox F/E/N: DMII diet Dispo: Admit for IV vanc, home with IV antibiotics pending speciation and sensitivities. If sensitivities not back tomorrow, a course of ceftriaxone for beta hemolytic strep at home seems appropriate, I don't want to hold this man away from his longer than needed DNR/DNI (2) Pancreatic cancer: (3) Depression: (4) Hypomagnesemia: (5) Immunocompromised: (6) Fever: Admission and Anticipated Discharge Date Admission Date: November 02, 2020 Supervising Physician Co-Signing Physician Notes I personally examined the patient and verified all connell points of history and exam, discussed case, and agree with decision making with Dr Regalado. No complaints, wonders about discharge planning. Understands what we are waiting for with sensitivities, but also wonders about going home on current antibiotics just so he could get home sooner. Vitals noted, in general he is awake alert oriented pleasant no distress. HEENT normocephalic atraumatic mucous membranes moist. Breathing unlabored no accessory muscle use good effort. Skin shows no rashes no pallor or icterus. Neuro shows no focal neuro deficits. cx still pending speciation, new cx ngtd Gram-positive bacteremiacontinue vanco pending ID&S of current cultures. echo no veg, consider MARIA ELENA. consider removal of port -but at this time and his discussions with Dr. Regalado he seems to understand risks and benefits and prefers to not have it removed. Given his overall poor prognosis, I certainly would like to spare him from procedures if at all possible, and quite honestly it would be reasonable to consider therapeutic antibiotics for his bacteremia, and then suppressive antibiotics given his likely relatively short prognosis. Awaiting sensitivitieshopefully we can send him home on something like Rocephin once a day, I understand his urgency to get home, given that he probably does not have very many good days left, and certainly want to facilitate this as quickly as possible. In that respect if sensitivities are not able to be quickly obtained it might be reasonable to send him home with something donna to his current coverage. DVT prophylaxis with Lovenox Otherwise as above Subjective Fady is doing well today, he wants more than anything to return home to his as soon as he can. He is asymptomatic, no further chills, no pain. Review of Systems Review of Systems: All systems reviewed & are unremarkable except as noted in HPI & below Physical Exam Physical Exam: Constitutional: Frail appearing 70 year old man resting c omfortably in bed in no acute distress, calm cooperative and easily conversive Eyes: PERRLA, EOMMI bilaterally ENMT: NAD Respiratory: Regular rate, no accessory muscle use, no increased work of breath ing, lung sounds vesicular in all lung santiago Cardiovascular: Peripheral pulses intact and equal bilateral uppper and lower extremities, no murmurs rubs skips or gallops regular rate and rhythm No lower limb edema GI: Abdomen soft non tender Skin: Warm dry and well perfused MSK: Decreased plantar flexion and dorsiflexion at ankle joint on right side, slightly warmer to touch and slightly more swollen, ligamentously intact non tender no change from yesterday Results & Data Results & Data ([facility]) Vital Signs (Past 12 Hours) Vital Signs Temp Pulse Resp BP Pulse Ox 11/04/20 14:54 37.3 C 74 16 137/71 95 11/04/20 07:55 36.8 C 71 16 146/72 H 97 Resident Activity Tracking Resident Involvement: Resident Care Provided Care Provided: Adult Hospital Medicine (1) Fever Fever type: unspecified Qualified Code(s): R50.9 - Fever, unspecified
--- NOTE | 2020-11-04 18:36 | Billing Data ---
Date of Service November 04, 2020 Coding Level of Care Code 54306 Subseq Hosp Care Lvl 3
[2020-11-04] MEDS: SIMVASTATIN 40 MG TAB PO SCH (20:09)
[2020-11-04] MEDS: SERTRALINE HCL 50 MG TABLET PO SCH (20:09)
[2020-11-05] MEDS: HEPARIN 100 UNIT/ML 5ML FLUSH FLUSH PRN ×2 (06:02→09:22)
[2020-11-05 06:16] LABS: Hemoglobin 8.1 g/dL (14.0-18.0); Mean Corpuscular Hemoglobin 28.8 pg (25-34); Mean Corpuscular Hgb Conc 32.4 g/dL (32-36); Mean Platelet Volume 10.2 fL (7.4-10.4); Platelet Count 239 K/uL (130-400); RDW Coefficient of Variation 18.5 % (11.5-14.5); RDW Standard Deviation 58.4 fL (36.4-46.3); Red Blood Count 2.81 M/uL (4.7-6.1); White Blood Count 10.73 K/uL (4.8-10.8)
[2020-11-05 06:46] LABS: BUN Creatinine Ratio 9.5 (10-20); Calcium 8.4 mg/dl (8.5-10.1); Creatinine Clr Calc Pharmacy 121.9 ml/min; Est GFR (Non-African American) 109.6; Magnesium 1.8 mg/dl (1.8-2.4); Potassium 3.7 mmol/L (3.5-5.1)
[2020-11-05] MEDS: INSULIN ASPART 100 UNITS/ML 3 ML PEN SC SCH ×2 (08:29→12:28)
[2020-11-05] MEDS: POLYETHYLENE (MIRALAX) 17 GM PACK PO SCH (08:40)
[2020-11-05] MEDS: CYANOCOBALAMIN 500 MCG TABLET (VITAMIN B-12) PO SCH (08:41)
[2020-11-05] MEDS: CALCIUM 600MG + VIT D 400 IU TAB PO SCH (08:41)
[2020-11-05] MEDS: PANTOprazole 40 MG TAB PO SCH (08:41)
[2020-11-05] MEDS: MAGNESIUM OXIDE 400 MG TAB PO SCH (08:41)
[2020-11-05] MEDS: POTASSIUM CHLORIDE 10 MEQ TABCR PO SCH (08:42)
[2020-11-05] MEDS ORDERED: cefTRIAXone SODIUM 2,000 MG in DEXTROSE 5% 50 ML IV SCH (09:00)
[2020-11-05] MEDS ORDERED: INSULIN GLARGINE SOLOSTAR 100 UNITS/ML 3 ML PEN SQ SCH (09:00)
--- NOTE | 2020-11-05 11:39 | Palliative Care Consultation ---
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 He has decided that he does not want to pursue further cancer treatment and that his goal is "to finish well". He will be receiving home health for antibiotic therapy until completing antibiotic course after discharge and will then transition to hospice care. His is a retired hospice nurse. She has been helping with his care but is unfortunately also recently completed radiation treatment for uterine cancer. They do have very supportive daughters who are willing to help and extensive support from friends and confucianism family. I spoke with his on the phone. She is comfortable with the plan of care and has extensive support. History of Present Illness Reason for Consultation: goals of care Requesting Physician: Dr. Regalado Attending Physician: Molly Bal MD History of Present Illness 70 yo gentleman who was diagnosed with pancreatic cancer in May of 2020. He had completed a course of abraxane and gemcitabine and developed fever and blood cultures showed gram positive bacteremia. He had negative echo and has been responding to antibiotic therapy. He had a recent CT which showed disease progression despite treatment and is considering how he wants to proceed. We have been consulted to assist with goals of care. Allergies Allergy/AdvReac Type Severity Reaction Status Date / Time midazolam [From Versed] AdvReac Intermediate AGITATED/CO Verified 10/31/20 23:58 MBATIVE Home Medications Medication Instructions Recorded Confirmed Type calcium carbonate [Calcium 600] 600 mg PO BID 06/11/20 10/31/20 History pantoprazole 40 mg PO QAM 06/11/20 10/31/20 History polyethylene glycol 3350 [Miralax] 17 g PO DAILY PRN 06/11/20 10/31/20 History simvastatin 40 mg PO QPM 06/11/20 10/31/20 History metformin 1,000 mg tablet 1,000 mg PO BID 07/26/20 10/31/20 History Lantus Solostar U-100 Insulin 40 unit SUBCUT BID 07/27/20 10/31/20 History cyanocobalamin (vitamin B-12) 1,000 mcg PO QAM 07/27/20 10/31/20 History losartan 100 mg PO QAM 07/27/20 10/31/20 History sertraline [Zoloft] 50 mg PO QPM 07/27/20 10/31/20 History ibuprofen 600 mg PO Q6H PRN 08/01/20 10/31/20 History magnesium oxide 400 mg PO QAM 10/31/20 10/31/20 History ceftriaxone 2 g IV DAILY 14 Days #14 ea 11/05/20 Rx Patient History Medical History Diabetes mellitus, type 2 GERD (gastroesophageal reflux disease) Hyperlipidemia Hypertension Insomnia REASON FOR ZOLOFT Pancreatic cancer NEW DX Surgical History History of anesthesia reaction REACTION TO VERSED (EVENT WITH BILIARY TUBE PLACEMENT AT [facility])- WAS COMBATIVE AND AGITATED- NO ISSUES WITH VERSED PRIOR TO BILARY TUBE PLACEMENT ON 06/18/20 PER PATIENT) History of biliary stent insertion DRAINING INTO INTESTINAL TRACT (PROCEDURE DONE AT [facility]) History of biliary T-tube placement PORT STILL IN PLACE/NO BAG History of colonoscopy History of ERCP X 3 History of esophagogastroduodenoscopy (EGD) History of tonsillectomy and adenoidectomy Hx of vasectomy Port-A-Cath in place (08/01/20) Insertion of Mediport with Fluoroscopy Dr. Cummins 08/01/2020 Vocal cord polyp REMOVED Family History Grandmother (Maternal) Cancer kidney Grandmother (Paternal) Family history of diabetes mellitus Other No family history of adverse response to anesthesia Social History Smoking Status: Never smoker Second Hand Exposure: No; Hx Alcohol Use: No Hx Substance Use: No Preferred Language: German Communication Ability: Effective Risk Control Specialist Required: No Beliefs That Will Affect Care: None marital status: Current Living Situation: Spouse current occupational status: retired How many Children do You have: 2 Other Information That Helps Us Care for You: No Feels Safe at Home: Yes Safety Concerns: Feels Safe At This Time Assistive Devices: Glasses, Hearing Aid - Bilateral and Walker Review of Systems Review of Systems: [place] Symptom Assessment Scale Pain0/3 Nausea0/3 Fatigue 2/3 Dyspnea 0/3 Anorexia 2/3 Drowsiness 0/3 Palliative Performance Score 60% Physical Exam Constitutional: no acute distress Eyes: + anicteric sclerae ENMT: Ears: no hearing impairment Respiratory: normal respiratory effort; no labored breathing Cardiovascular: Extremities: no edema Gastrointestinal (Abdomen): biliary drain Musculoskeletal: Extremities: extremities normal to inspection Skin: no jaundice Neurologic: no focal motor deficits Psychiatric: Orientation: alert and oriented x 3 Results & Data ([facility]) Vital Signs (Past 12 Hours) Vital Signs Temp Pulse Resp BP Pulse Ox 11/05/20 07:16 99.0 F 76 16 168/67 H 95 PG Care Time/CCT Total # of Minutes Spent Total Time Spent with Patient: Total time spent is greater than 50% in coordination of care (as documented) at patient's floor/unit and/or counseling patient: Total time spent, 60 minutes with more than 50% of time spent on discussing support, goals of care. Coding Level of Care Code 53072 Inpt Consult Level 3 Diagnoses Pancreatic cancer C25.9 Neutropenic fever D70.9; R50.81 Palliative care encounter Z51.5
[2020-11-05] MEDS: ENOXAPARIN INJ 40 MG/0.4 ML SYR SQ SCH (12:12)
--- NOTE | 2020-11-05 13:01 | Discharge Summary ---
Date of Service November 05, 2020 Admission HPI Per Admitting Provider Fady Kang is a 70 year old man with metastatic pancreatic cancer who presented yesterday morning for fever after chemotherapy. See yesterdays H and P below. 70-year-old male past medical history significant for hypertension, hyperlipidemia, metastatic pancreatic cancer actively undergoing chemotherapy, insulin-dependent DM2 presented to ED for complaints of intermittent fever x48 hours to T-max 102.0 at home, with some associated malaise, but without shortness of breath, chest pain, nausea or vomiting, abdominal pain, recent sick contacts. In the ER was noted to have leukopenia without neutropenia, tachy cardia to 130 which rapidly decreased to 110s, elevated lactate and procal, hypokalemia, and hypomagnesemia. Covid testing negative, chest x-ray negative. Patient had blood cultures drawn, received IV vancomycin and remained asymptomatic. Patient was desiring to return home and spend time with his as he had no symptoms. We decided to let him go home on PO augmentin under the condition that should he develop symptoms or blood culture were to come back positive he would return to care to be direct admitted. He has continued to feel in his usual state of health unfortunately both vials of his blood culture have come back for gram positive cocci in chains. We direct admitted him to med surg. He has no new symptoms at present but on more thorough questioning does admit that he's had a stiff swollen ankle for the last week or so but it is not painful. No other joints bothering him. Admission Exam Per Admitting Provider Constitutional: Frail appearing 70 year old man resting comfortably in bed in no acute distress, calm cooperative and easily conversive Eyes: PERRLA, EOMMI bilaterally ENMT: NAD Respiratory: Regular rate, no accessory muscle use, no increased work of breathing, lung sounds vesicular in all lung santiago Cardiovascular: Peripheral pulses intact and equal bilateral upper and lower extremities, no murmurs rubs skips or gallops regular rate and rhythm No lower limb edema GI: Abdomen soft non tender Skin: Warm dry and well perfused MSK: Decreased plantar flexion and dorsiflexion at ankle joint on right side, slightly warmer to touch and slightly more swollen, ligamentously intact non tender Principal Diagnosis Gram+ Bacteremia Discharge Exam Constitutional WD/WN, vitals as above Eyes PERRL, conjunctivae normal, anicteric sclerae ENMT external ear and nose normal, oropharynx normal Neck trachea midline, no thyromegaly Respiratory normal respiratory effort, lungs clear to auscultation Cardiovascular RRR, no murmur, no edema Chest (Breasts) Chest: + vascular access device or port (R subclavian port ) Gastrointestinal (Abdomen) Inspection/Auscultation: normal bowel sounds; abdomen not distended Percussion/Palpation: abdomen soft; abdomen nontender, no guarding and abdomen not rigid Musculoskeletal no cyanosis or clubbing, extremities motor strength 5/5 Skin no rashes, warm and dry Neurologic PERRL, EOMI, accommodation nl, no face palsy, no dysarthria Psychiatric A+Ox3, euthymic affect Discharge Data Allergies Allergy/AdvReac Type Severity Reaction Status Date / Time midazolam [From Versed] AdvReac Intermediate AGITATED/CO Verified 10/31/20 23:58 MBATIVE Consultations 11/02/20 08:14 Consult Infectious Diseases Routine 11/03/20 10:37 Consult Palliative Care Routine Ordered Studies 11/03/20 08:13 CT abd pelvis IV con only Urgent Hospital Course (1) Gram-positive cocci bacteremia: Fady is a 70 year old man with past medical history significant for pancreatic cancer who presented with a fever following chemotherapy and now has gram positive bacteremia. Streptococcus Constellatus bacteremia in setting of immunocompromised status -Blood cultures growing Streptococcus Constellatus - IV port as source -Patient was readmitted after above cultures had returned positive -MARIA ELENA was negative for vegetation -Infectious Disease was consulted - while note from ID was not in place, will notify patient if any need in change required. As he is trending towards palliative/hospice do not want to keep patient in hospital longer than required. -Patient declined port removed while inpatient - would like to discuss this further after finishing 14 days of antibiotics - to be discussed further on discharge. -Repeat cultures showed no growth after 48 hours -Patient was started on IV Vancomycin, transitioned to IV Ceftriaxone -Continue IV Ceftriaxone 2g IV daily x14 days after discharge. Pancreatic Cancer -Treating with gemcitabine and Abraxane neoadjuvantly to see if cancer can be resectable, on week 9 of therapy -Discussed with patient this AM where he noted he no longer wanted to continue treatment and was planning towards going to palliative/hospice. -Plan for discontinuation of his R subclavian port after completion of treatment of bacteremia as noted above. Anemia -Differential including GI bleed, chemotherapy induced or anemia of chronic disease, though Hemoccult negative -Hemoglobin is 7.9 on admission down from baseline around 11, on discharge 11/02/20 was 11 on initial presentation but likely hemoconcentrated -8.1 on day of discharge Hypertension: Continued home losartan as patient is normotensive and not septic Hyperlipidemia: Continued home simvastatin. DM2: At home is on Lantus 40 units subcu twice daily Held Metformin while admitted, cut lantus dose in half and added SSI. Depression/anxiety: Continued home Zoloft. (2) Pancreatic cancer: (3) Depression: (4) Hypomagnesemia: (5) Immunocompromised: (6) Fever: Total Time Total Time Spent Total Time Spent (In Minutes): see attending attestation Discharge Plan Discharge Items Patient Disposition: Home - Home Health Services Reason For Visit: BACTEREMIA Discharge Diagnosis: Bacturemia Activity: Per Instructions section Non-emergency contact: Primary Care Provider and Oncologist Call non-emergency contact if: you have any medication questions, your symptoms worsen and your temperature is above 101 Follow-up/Referrals: Jesus Posada [Primary Care Provider] - 11/08/20 8:45 am Diet: Regular Addtl Attending Provider Instructions: Mr. Kang, It was our pleasure caring for you at [facility] from 11/02 - 11/05/20. Please see below for a summary of your care and future instructions. Bacteremia secondary to Streptococcus Constellatus -You were asked to return to the hospital after your blood cultures had been positive for growing gram positive bacteria. -You were started on IV antibiotics which covered a wide array of bacteria until a more specific species grew. -You were transitioned to Ceftriaxone, a once a day IV antibiotic which we will need you to continue taking for the next 2 weeks. -A prescription will be sent for Ceftriaxone 2g IV daily x 14 days, yoyrnfirst dose is tomorrow morning. -plan for removal of port after completion of antibiotic treatment. Pancreatic Cancer -You had discussed with us that you felt that you were no longer interested in treatment in regards to your cancer. -Please call and discuss this with your Oncologist Dr. Infante at your next appointment 11/06/20 Please continue to take your other home medications as prescribed. Please follow up with your PCP this 11/08/20 as scheduled. Pending Studies at Discharge: No Stand-Alone Forms: My [facility], Smoking Cessation Medications and DC Order Prescriptions: New ceftriaxone 2 gram recon soln 2 g IV DAILY 14 Days Qty: 14 RF: 0 Continued metformin 1,000 mg tablet 1,000 mg PO BID RF: 0 polyethylene glycol 3350 [Miralax] 17 gram Powder In Packet 17 g PO DAILY PRN (Reason: Constipation) RF: 0 simvastatin 40 mg Tablet 40 mg PO QPM RF: 0 calcium carbonate [Calcium 600] 600 mg calcium (1,500 mg) Tablet 600 mg PO BID RF: 0 pantoprazole 40 mg Tablet,Delayed Release (Dr/Ec) 40 mg PO QAM RF: 0 cyanocobalamin (vitamin B-12) 1,000 mcg Tablet 1,000 mcg PO QAM RF: 0 losartan 100 mg Tablet 100 mg PO QAM RF: 0 Lantus Solostar U-100 Insulin 100 unit/mL (3 mL) Insulin Pen 40 unit SUBCUT BID RF: 0 sertraline [Zoloft] 50 mg Tablet 50 mg PO QPM RF: 0 ibuprofen 200 mg Tablet 600 mg PO Q6H PRN (Reason: Pain) RF: 0 magnesium oxide 400 mg magnesium Tablet 400 mg PO QAM RF: 0 Discontinued amoxicillin-pot clavulanate [Augmentin] 875-125 mg tablet 1 tab PO BID 7 Days Qty: 14 RF: 0 Discharge Orders: Discharge Order (Routine); Ordered 11/05/20 Ordered By: Asif Tirado Admission Data Admit Date/Time: 11/02/20 10:24 Attending Provider: Molly Bal Admit Provider: Augie Calvo Primary Care Provider: Jesus Posada Other Providers: Eris Calvert ; Tran Grimes ; Adrian Tate I. ; Adal Thomson II ; Lashawn Dallas ; Claude Hogan ; Kinjal Peralta ; Augie Calvo Other Interventions: Discharge Summary Assessment (RN) Last Done: 11/05/20 12:02 Supervising Physician Co-Signing Physician Notes Resident Physician Supervision Note: I independently interviewed and examined the patient and verified the connell history and physical, reviewed labs and image studies, discussed the case with the resident Dr. Candida and agree with the findings and care plan. Resident Activity Tracking Resident Involvement: Resident Care Provided Care Provided: Adult Hospital Medicine
== END 2020-11-05 14:17 | disposition home health service (06) | DRG 871 ==
LOC: SUATTDRO 10:24 → 3W 10:24